=== PATIENT | female | born 1950 | race Hispanic/Latino ===

== ENCOUNTER 2021-01-22 14:43 | Emergency (ER) | payer MEDICARE ==
[~2021-01-22] VITALS: Ht 152.4 cm; Wt 90.7 kg
[2021-01-22 15:24] VITALS: BP 125/67
[2021-01-22] MEDS ORDERED: TRAMADOL HCL 50 MG TABLET PO ONE (16:00)
== END 2021-01-22 16:50 | disposition home or self-care (01) ==
LOC: EDH 14:43
DX: S60.211A Contusion of right wrist, initial encounter (principal); S50.01XA Contusion of right elbow, initial encounter; S60.221A Contusion of right hand, initial encounter; E03.9 Hypothyroidism, unspecified; E66.9 Obesity, unspecified; Z88.0 Allergy status to penicillin; Z88.1 Allergy status to other antibiotic agents; Z88.5 Allergy status to narcotic agent; X58.XXXA Exposure to other specified factors, initial encounter; Y93.89 Activity, other specified; Y92.89 Other specified places as the place of occurrence of the external cause; Y99.8 Other external cause status
CPT/HCPCS: 73070; 73090; 73120

== ENCOUNTER → 2023-06-04 | Outpatient (CLI) | payer OTHER ==
[~2023-06-04] MED LIST: BUDE10.7 IH; FOLI0.8T3 PO; FURO20TA4 PO; IOHEXOL 350 MG/ML 100ML INFUS..BTL IV ONE; IPRA3AMP24 NEB; LEVO175T9 PO; METO-408 PO; MONT-39 PO; PANT40TA54 PO; ROSU10TA72 PO; TRAZ-187 PO; ZINC50TA15 PO; [UNRECOGNIZED DRUG - CODE] PO
== END | disposition home or self-care (01) ==
LOC: RAH 07:57
PROVIDERS: ATTEND Student in an Organized Health Care Education/Training Program
DX: R07.89 Other chest pain (principal)
CPT/HCPCS: 75574; Q9967

== ENCOUNTER 2023-06-19 05:53 | Day surgery (SDC) | payer OTHER ==
[2023-06-17 08:58] VITALS: BP 145/71; PULSE 68; RESP 21
[2023-06-17 09:08] LABS: BASOPHILS # (AUTO) 0.04 K/uL (0.00-0.20); BASOPHILS % (AUTO) 0.6 % (0.0-5.0); EOSINOPHILS # (AUTO) 0.12 K/uL (0.00-0.70); EOSINOPHILS % (AUTO) 1.8 % (0.0-8.0); HEMATOCRIT 40.9 % (36-48); IMMATURE GRANULOCYTE ABSOLUTE 0.05 K/uL (0-1); LYMPHOCYTES # (AUTO) 1.5 K/uL (1.0-4.8); LYMPHOCYTES % (AUTO) 22.9 % (21.0-51.0); MEAN CORPUSCULAR HEMOGLOBIN 35.5 pg (27.0-33.0); MEAN CORPUSCULAR HGB CONC 32.8 g/dL (32.0-36.0); MEAN CORPUSCULAR VOLUME 108.5 fL (79-99); MONOCYTES # (AUTO) 0.5 K/uL (0.1-1.0); MONOCYTES % (AUTO) 7.5 % (3.0-13.0); NEUTROPHILS # (AUTO) 4.4 K/uL (1.8-7.7); NEUTROPHILS % (AUTO) 66.4 % (40.0-77.0); PLATELET COUNT (AUTO) 176 K/uL (130-400); RED BLOOD CELL COUNT(AUTO) 3.77 MIL/uL (4.00-5.50); RED CELL DISTRIBUTION WIDTH 13.2 % (11.0-15.5); WHITE BLOOD COUNT (AUTO) 6.6 K/uL (4.8-10.8)
[2023-06-17 09:10] LABS: APPEARANCE,URINE CLEAR (CLEAR); BILIRUBIN,URINE NEGATIVE (NEGATIVE); COLOR,URINE COLORLESS (YELLOW); GLUCOSE, URINE (UA) NEGATIVE (NEGATIVE); KETONES,URINE NEGATIVE (NEGATIVE); LEUKOCYTE ESTERASE ,URINE NEGATIVE Leu/uL (NEGATIVE); NITRATE,URINE NEGATIVE (NEGATIVE); OCCULT BLOOD,URINE NEGATIVE (NEGATIVE); PH,URINE 5.5 (5.0-8.0); PROTEIN,URINE NEGATIVE (NEGATIVE); UROBILINOGEN,URINE 0.2 mg/dL (0.2-1.0)
[2023-06-17 09:16] LABS: CREATININE 0.8 mg/dL (0.5-1.0); POTASSIUM 4.4 mmol/L (3.5-5.1)
[2023-06-17 09:17] LABS: ADD UA MICROSCOPIC NO
[2023-06-17 09:18] LABS: INR <= 0.93 (0.85-1.15); PROTHROMBIN TIME 10.8 SEC (9.6-11.6)
[2023-06-17 09:20] LABS: PARTIAL THROMBOPLASTIN TIME 27.3 SEC (26.3-35.5)
[2023-06-19] VITALS (8 sets, daily range): BP systolic 119–162; BP diastolic 59–100; PULSE 56–64; RESP 12–21
[~2023-06-19] VITALS: Ht 165.1 cm; Wt 107.7 kg
[~2023-06-19 05:53] MED LIST changes: -IOHEXOL 350 MG/ML 100ML INFUS..BTL IV ONE; +ROSU10TA28 PO; -ROSU10TA72 PO
[2023-06-19] MEDS: 0.9%NACL 1000ML 1,000 ML IV ONE (06:36)
[2023-06-19] MEDS ORDERED: LIDOCAINE HCL 400MG/20ML VIAL ONE (07:12)
[2023-06-19] MEDS ORDERED: FENTANYL CITRATE PF 50 MCG/1 ML 2ML VIAL ONE (07:13)
[2023-06-19] MEDS ORDERED: IOHEXOL-350 75 ML VIAL IV ONE (07:13)
[2023-06-19] MEDS ORDERED: HEPARIN 10,000 UNIT/10ML (1,000 UNIT/ML) VIAL ONE (07:13)
[2023-06-19] MEDS ORDERED: VERAPAMIL HCL 2.5 MG/ML VIAL ONE (07:13)
[2023-06-19] MEDS ORDERED: MIDAZOLAM HCL 1 MG/ML 2ML VIAL ONE (07:13)
[2023-06-19] MEDS ORDERED: NITROGLYCERIN 50MG VIAL ONE (07:39)
[2023-06-19] MEDS ORDERED: DiphenhydrAMINE HCL 50 MG/ML VIAL ONE (08:05)
[2023-06-19] MEDS ORDERED: DEXTROSE 50%-WATER 50 ML DISP.SYRIN IV PRN (09:00)
[2023-06-19] MEDS ORDERED: GLUCAGON 1MG KIT 1 MG ML IM PRN (09:00)
== END 2023-06-19 11:15 | disposition home or self-care (01) ==
LOC: DAH 05:53
PROVIDERS: ATTEND Student in an Organized Health Care Education/Training Program
DX: R93.1 Abnormal findings on diagnostic imaging of heart and coronary circulation (principal); I25.119 Atherosclerotic heart disease of native coronary artery with unspecified angina pectoris; I27.23 Pulmonary hypertension due to lung diseases and hypoxia; R09.02 Hypoxemia; I11.0 Hypertensive heart disease with heart failure; I50.20 Unspecified systolic (congestive) heart failure; E78.5 Hyperlipidemia, unspecified; G47.33 Obstructive sleep apnea (adult) (pediatric); R60.9 Edema, unspecified; J44.9 Chronic obstructive pulmonary disease, unspecified; I73.9 Peripheral vascular disease, unspecified; Z79.899 Other long term (current) drug therapy; Z79.01 Long term (current) use of anticoagulants; Z98.890 Other specified postprocedural states; Z79.890 Hormone replacement therapy; Z88.8 Allergy status to other drugs, medicaments and biological substances; Z88.6 Allergy status to analgesic agent; Z99.81 Dependence on supplemental oxygen; Z90.49 Acquired absence of other specified parts of digestive tract; Z98.51 Tubal ligation status; Z83.3 Family history of diabetes mellitus; Z82.49 Family history of ischemic heart disease and other diseases of the circulatory system; Z80.6 Family history of leukemia; Z80.0 Family history of malignant neoplasm of digestive organs; Z80.1 Family history of malignant neoplasm of trachea, bronchus and lung; Z88.0 Allergy status to penicillin
CPT/HCPCS: 80048; 83880; 85025; 85610; 85730; 81003; 36415; 71045; 93005; 93460; C1894 ×3; C1769 ×2; A4649; J1200; J3010; J3490 ×3; J7030; J1644 ×2; J2250; Q9967; A4215; A4335; A4222; A6260; A4221; A4663; A4216; A6206; A4606; A4223 ×3; A4554; 99156; 99157

== ENCOUNTER → 2024-10-26 | Outpatient (CLI) | payer OTHER ==
[~2024-10-26] MED LIST changes: -ROSU10TA28 PO; +ROSU10TA72 PO; -ZINC50TA15 PO; +ZINC50TA84 PO
--- NOTE | 2024-10-26 15:39 | HMCIMG ---
DOUBLE CONTRAST UPPER GI SERIES: CLINICAL HISTORY: Chronic GERD Finding: The study was performed using provocative maneuvers After swallowing effervescent crystal and thick barium, there is no definite intrinsic or extrinsic lesion seen in the esophagus. The stomach is normal in size, shape, and configuration. The rugal folds appear to be normal. The duodenal bulb, duodenal sweep, and upper jejunum appear to be normal. Fluoroscopy time: 0.7 minutes IMPRESSION: NORMAL DOUBLE CONTRAST UPPER GI SERIES.
== END | disposition home or self-care (01) ==
LOC: RAH 08:42
PROVIDERS: ATTEND Internal Medicine
DX: K21.9 Gastro-esophageal reflux disease without esophagitis (principal)
CPT/HCPCS: 74240

== ENCOUNTER 2024-12-20 11:21 | Inpatient (IN) | payer OTHER ==
[2024-12-20] VITALS (15 sets, daily range): BP systolic 102–156; BP diastolic 36–113; PULSE 60–69; RESP 18–35; TEMP 98.1–98.4; O2SAT 50–94
[~2024-12-20] VITALS: Ht 165.1 cm; Wt 104.5 kg
[~2024-12-20 11:21] MED LIST changes: -ROSU10TA72 PO; +ROSU10TA98 PO
[2024-12-20 11:56] LABS: IMMATURE GRANULOCYTE ABSOLUTE 0.07 K/uL (0-1); NUCLEATED RED BLOOD CELLS 0.0 % (0.0-0.19); PLATELET COUNT (AUTO) 153 K/uL (130-400); RED BLOOD CELL COUNT(AUTO) 3.87 MIL/uL (4.00-5.50); RED CELL DISTRIBUTION WIDTH 13.0 % (11.0-15.5); WHITE BLOOD COUNT (AUTO) 8.3 K/uL (4.8-10.8)
[2024-12-20 12:02] LABS: APPEARANCE,URINE CLEAR (CLEAR); GLUCOSE, URINE (UA) NEGATIVE (NEGATIVE); LEUKOCYTE ESTERASE ,URINE NEGATIVE Leu/uL (NEGATIVE); NITRATE,URINE NEGATIVE (NEGATIVE); OCCULT BLOOD,URINE +- (TRACE) (NEGATIVE)
[2024-12-20 12:07] LABS: ADD UA MICROSCOPIC YES
[2024-12-20 12:09] LABS: SQUAMOUS EPITHELIAL CELL,UR RARE /HPF (0-2)
[2024-12-20 12:13] LABS: CREATININE 0.6 mg/dL (0.5-1.0); GLOMERULAR FILTR. RATE CALC 95.0 mL/min (>90); GLUCOSE,RANDOM 110.0 mg/dL (70-105); SODIUM SERUM 143.0 mmol/L (136-145); UREA NITROGEN, BLOOD 9.0 mg/dL (7-18)
[2024-12-20 12:19] LABS: CREATINE KINASE, TOTAL 47.0 U/L (21-232)
[2024-12-20] MEDS: DOXYCYCLINE 100MG+NS 250ML 250 ML IV STA (12:23)
[2024-12-20 12:28] LABS: RAPID GROUP A STREP negative (NEGATIVE)
[2024-12-20 12:32] LABS: SARS-CoV-2, RNA, NAAT NEGATIVE SARS CoV-2 (NEGATIVE)
[2024-12-20 12:38] LABS: INFLUENZA TYPE A Negative For Type A (NEGATIVE); INFLUENZA TYPE B Negative For Type B (NEGATIVE)
--- NOTE | 2024-12-20 12:39 | ERN ---
General Chief Complaint: Shortness of Breath Stated Complaint: CHEST PAIN AND SOB Time Seen by MD: 11:23 Source: patient History of Present Illness Initial Comments Patient is a 74-year-old female coming in complaining of shortness of breath. Patient was seen by her sales branch manager Dr. Crenshaw and sent over for further evaluation. Per patient she has a history of COPD. Allergies: Coded Allergies: Penicillins (Unverified Allergy, Unknown, 01/22/21) codeine (Unverified Allergy, Unknown, 01/22/21) erythromycin base (Unverified Allergy, Unknown, 01/22/21) Home Meds Reported Medications Ipratropium/Albuterol Sulfate (Iprat-Albut 0.5-3(2.5) mg/3 ml) 0.5 Mg-3 Mg (2.5 Mg Base)/3 Ml Ampul.neb, 3 ML NEB Q6HPRN PRN for SHORTNESS OF BREATH 06/17/23 Levothyroxine Sodium (Levothyroxine Sodium) 175 Mcg Tablet, 175 MCG PO DAILY, TAB 24 Furosemide (Furosemide) 20 Mg Tablet, 20 MG PO DAILY, TAB 24 Zinc Gluconate (Zinc) 50 Mg Tablet, 50 MG PO DAILY, TAB 24 Pramipexole Di-HCl (Pramipexole ER) 1.5 Mg Tab.er.24h, 1.5 MG PO HS, TAB 24 Montelukast Sodium (Montelukast Sodium) 10 Mg Tablet, 10 MG PO DAILY, TAB 24 Metoprolol Succinate (Metoprolol Succinate) 25 Mg Tab.er.24h, 25 MG PO DAILY, T AB 06/17/23 Rosuvastatin Calcium (Rosuvastatin Calcium) 10 Mg Tablet, 10 MG PO DAILY, TAB 24 Pantoprazole Sodium (Pantoprazole Sodium) 40 Mg Tablet.dr, 40 MG PO DAILY, TAB 24 Folic Acid (Folic Acid) 0.8 Mg Tablet, 0.8 MG PO DAILY, TAB 24 Trazodone HCl (Trazodone HCl) 100 Mg Tablet, 200 MG PO HS, TAB 24 Budesonide/Glycopyr/Formoterol (Breztri Aerosphere Inhaler) 160 Mcg-9 Mcg-4.8 Mcg/Actuation Hfa.aer.ad, 2 PUFF IH BID 06/17/23 Past Medical History Past Medical History: COPD, GERD, High Cholesterol, Hypertension, Hypothyroid Medical History Other: Obese Past Surgical History: Other ROS Dictation CONSTITUTIONAL: No chills, no fever, no weakness, no diaphoresis, no malaise. HEAD/FACE: No signs of trauma. EENT: No eye pain, no blurred vision, no tearing, no double vision, no ear pain, no ear discharge, no nose pain, no nasal congestion, no throat pain, no throat swelling, no mouth pain. RESPIRATORY: No cough, no orthopnea, SOB, no stridor, no wheezing. CARDIOVASCULAR: No chest pain, no edema, no palpitations, no syncope. GASTROINTESTINAL/ABDOMINAL: No abdominal pain, no constipation, no diarrhea, no nausea, no vomiting. GENITOURINARY: No abnormal discharge, no dysuria, no frequent urination, no hematuria. No complaints of pain in the genitals. MUSCULOSKELETAL: No back pain, no gout, no joint pain, no joint swelling, no muscle pain, no muscle stiffness, no neck pain. INTEGUMENTARY: No change in color, no change in hair/nails, no dryness, no lesion, no lumps, no rash. NEUROLOGICAL/PSYCH: No anxiety, not depressed, no emotional problem, no headache, no numbness, no pre-existing deficit, no history of seizures, no tremors, no weakness. HEMATOLOGIC/LYMPHATIC: Not anemic, no history of blood clots, no apparent bleeding, no bruising, glands not swollen. All Systems Negative, Except as Noted. Physical Exam Physical Exam Dictation VITAL SIGNS: Reviewed. GENERAL APPEARANCE: Alert, oriented x3, no acute distress, obese. HEAD AND FACE: Non-traumatic. EYES: PERRL, pink conjunctivas, eyelid no trauma, anterior chamber clear. EARS: Pinnas intact and no signs of trauma or erythema. Ear canals clear and no discharge. TMs no erythema. NOSE: No discharge, no bleeding. OROPHARYNX: Mouth normal, teeth no caries, tongue pink. Pharynx clear, no erythema. Tonsils no exudates, no abscesses noted. Mucous membrane moist. NECK: Supple, non-tender, no thyromegaly, no masses, no JVD, no bruits. BREAST: Deferred. CHEST: No tenderness, no crepitus, no paradoxical movement, no retractions. LUNGS: Clear, well-ventilated, symmetric, no rales, no wheezing, no rhonchi, no stridor, good breath sounds bilaterally. HEART: Regular rate, regular rhythm, no murmur, no gallops. VASCULAR: No peripheral edema. ABDOMEN: Soft, positive bowel sounds, nondistended, no guarding, nontender, no rebound, no masses no hepatomegaly, no splenomegaly, no Miranda's sign, no hernias. RECTAL: Deferred. GENITAL: Deferred. NEUROLOGICAL: Normal speech, gross motor function intact, gross sensory function intact. MUSCULOSKELETAL: Neck nontender, full range of motion, back nontender, full range of motion. EXTREMITIES: Nontender, full range of motion. SKIN: Color pink, dry, no turgor, no rash, no lacerations, no abrasions, no contusions. LYMPHATICS: Deferred. Results Laboratory and Microbiology Lab and Micro Result Laboratory Tests Test 12/20/24 11:19 12/20/24 11:36 12/20/24 12:05 12/20/24 13:10 Urine Color LIGHT-YELLOW (YELLOW) Urine Appearance CLEAR (CLEAR) Urine pH 7.5 (5.0-8.0) Urine Specific [place] 1.011 (1.001-1.031) Urine Protein NEGATIVE mg/dL (NEGATIVE) Urine Glucose (UA) NEGATIVE mg/dL (NEGATIVE) Urine Ketones NEGATIVE mg/dL (NEGATIVE) Urine Occult Blood +- (TRACE) (NEGATIVE) H Urine Nitrate NEGATIVE (NEGATIVE) Urine Bilirubin NEGATIVE mg/dL (NEGATIVE) Urine Urobilinogen 0.2 mg/dL (0.2-1.0) Urine Leukocyte Esterase NEGATIVE Suze/uL Urine RBC 0-1 /HPF (0-1) Urine WBC 0-1 /HPF (0-1) Urine Squamous Epithelial Cells RARE /HPF (0-2) Urine Bacteria None /HPF (None Seen) White Blood Count 8.3 K/uL (4.8-10.8) Red Blood Count 3.87 MIL/uL (4.00-5.50) L Hemoglobin 13.7 g/dL (12.0-16.0) Hematocrit 43.2 % (36-48) Mean Corpuscular Volume 111.6 fL (79-99) H Mean Corpuscular Hemoglobin 35.4 pg (27.0-33.0) H Mean Corpuscular Hemoglobin Concent 31.7 g/dL (32.0-36.0) L Red Cell Distribution Width 13.0 % (11.0-15.5) Platelet Count 153 K/uL (130-400) Mean Platelet Volume 9.9 fL (7.5-10.5) Immature Granulocyte % (Auto) 0.8 % (0-1) Neutrophils (%) (Auto) 71.7 % (40.0-77.0) Lymphocytes (%) (Auto) 18.1 % (21.0-51.0) L Monocytes (%) (Auto) 7.6 % (3.0-13.0) Eosinophils (%) (Auto) 1.3 % (0.0-8.0) Basophils (%) (Auto) 0.5 % (0.0-5.0) Neutrophils # (Auto) 5.9 K/uL (1.8-7.7) Lymphocytes # (Auto) 1.5 K/uL (1.0-4.8) Monocytes # (Auto) 0.6 K/uL (0.1-1.0) Eosinophils # (Auto) 0.11 K/uL (0.00-0.70) Basophils # (Auto) 0.04 K/uL (0.00-0.20) Absolute Immature Granulocyte (auto 0.07 K/uL (0-1) Nucleated Red Blood Cells 0.0 % (0.0-0.19) Red Blood Cell Morphology See comments Sodium Level 143 mmol/L (136-145) Potassium Level 4.7 mmol/L (3.5-5.1) Chloride Level 100 mmol/L (101-111) L Carbon Dioxide Level 37 mmol/L (21-32) H Blood Urea Nitrogen 9 mg/dL (7-18) Creatinine 0.6 mg/dL (0.5-1.0) Glomerular Filtration Rate Calc 95 mL/min (>90) Random Glucose 110 mg/dL (70-105) H Total Calcium 8.7 mg/dL (8.5-10.1) Magnesium Level 2.10 mg/dL (1.80-2.40) Total Creatine Kinase 47 U/L (21-232) Troponin I High Sensitivity 8 ng/L (4-50) Influenza Type A Antigen Negative For Type A Influenza Type B Antigen Negative For Type B SARS-CoV-2, RNA, NAAT NEGATIVE SARS CoV-2 Group A Streptococcus Rapid negative (NEGATIVE) Blood Gas Specimen Type Arterial Arterial Blood pH 7.312 (7.350-7.450) Arterial Blood Partial Pressure CO2 69 mmHg (32-45) *H Arterial Blood Partial Pressure O2 52.7 mmHg (83.0-108.0) L Arterial Blood HCO3 34.2 mmol/L (21.0-28.0) H Arterial Blood Oxygen Saturation 85.0 % (94.0-98.0) L Arterial Blood Base Excess 5.5 mmol/L (-2.0-3.0) H Hemoglobin (Blood Gas) 14.2 g/dL (12.0-16.0) Sodium (Blood Gas) 138 MMOL/L (136-145) Bedside Potassium (Blood Gas) 4.3 MMOL/L (3.4-4.5) Bedside Chloride (Blood Gas) 98 MMOL/L (98-107) Bedside Glucose (Blood Gas) 107 MG/DL (65-95) H Bedside Ionized Calcium (Blood Gas) 1.17 MMOL/L (1.15-1.33) Bedside Lactic Acid (Blood Gas) 0.99 MMOL/L (0.36-0.75) H Blood Gas Temperature 37.0 CELSIUS (35.5-37.0) Blood Gas Flow-by 4.00 L/min (0.00-15.00) Blood Gas Vent Mode NC (ROOM AIR) FiO2 36.0 % Blood Gas Specimen Comment RR, Labs Reviewed?: Yes EKG/XRAY/US/CT/MRI EKG Comment 12/20/2024 time 11:32 a.m. Ventricular rate 58 Sinus rhythm [place] [address] wave elevation or depression X-RAY Comment IMAGING REPORT Signed PATIENT: YEE OTTO MR#: [id number] : 1950 SEX: F AGE: 74 LOCATION: [facility] ORDER [id number] STATUS: REG ER REPORT#: [id number] SERVICE 1134 REASON: SOB ORDERING PHYSICIAN: CYN GARLAND MD PROCEDURE: CXR1VW - CHEST 1VW EXAM: CR Chest, 1 View. CLINICAL HISTORY: SOB COMPARISON: Radiograph dated June 17, 2023 FINDINGS: There is bilateral perihilar and bibasilar airspace disease that may reflect pulmonary edema. No pleural effusion or pneumothorax. Heart size is stable. Pulmonary vascular congestion. IMPRESSION: 1. Bilateral perihilar and bibasilar airspace disease, possibly representing pulmonary edema with pulmonary vascular congestion /[place] DICTATED BY: MARA GARZA Jr., MD DATE: 12/20/241401 ELECTRONICALLY SIGNED BY: MARA GARZA Jr., MD DATE: 12/20/241401 [facility] MDM: Differential diagnosis: Respiratory distress, shortness of breath, history of COPD, Rationale: Tests considered and ordered secondary to shared decision making include: labs, ECG and radiology Previous outside records reviewed: Old ER visits. Risk of complication and/or morbidity or mortality of patient management: None Medications-Per medication reconciliation Need for hospitalization: Patient does meet criteria for hospitalization. Need for emergency major/minor surgery: No There are no social concerns with this patient. Prescription drug management Prescriptions will include symptomatic care Patient's prior external medical records from other ER visits were reviewed by me as indicated. Prior testing and results from previous visits were reviewed. Prior tests were taken into account with medical decision making and resource utilization, independent historian/historians were used to obtain complete medic al history. I independently interpreted the test that were performed, results were reviewed by me and considered findings on radiology if ordered. Medical management and examination interpretation discussions were had by me with other qualified healthcare professionals as indicated for the patient's care. She will be admitted under the care of hospitalist group for ongoing management ED Course Orders Procedure Category Date Status Time Cbc With Differential LAB 12/20/24 Complete 11:34 Chest 1vw RAD 12/20/24 Resulted 11:34 12 Lead Ekg Tracing- EKG 12/20/24 Complete Technical 11:34 Magnesium LAB 12/20/24 Complete 11:34 Creatine Kinase, Total LAB 12/20/24 Complete 11:34 Troponin I High LAB 12/20/24 Complete Sensitivity 11:34 Urinalysis Profile LAB 12/20/24 Complete 11:34 Basic Metabolic Panel LAB 12/20/24 Complete 11:34 Covid Rna Naat LAB 12/20/24 Complete 11:34 Influenza Type A & B, LAB 12/20/24 Complete Rapid 11:34 Rapid (Group A Strep) LAB 12/20/24 Complete 11:34 Doxycycline 100mg+Ns PHA 12/20/24 In Process 250ml (Doxycycline 12:14 Levofloxacin 500 PHA 12/20/24 Complete Mg/D5w 100 Ml 12:30 Ipratropium/Albuterol PHA 12/20/24 Complete Neb (Duoneb) 13:00 Methylprednisolone PHA 12/20/24 Complete Succ 125mg (Solu-Medr 13:00 Arterial Blood Gas + RT 12/20/24 Transmitted 12:44 Arterial Blood Gas LAB 12/20/24 Complete Arterial + 13:10 Current Medications Medications (Trade) Dose Ordered Sig/Jase Route PRN Reason Start Time Stop Time Status Last Admin Dose Admin Albuterol (DUOneb) 2 udvial ONCE ONCE IH 12/20/24 13:00 12/20/24 13:01 DC 12/20/24 12:57 Doxycycline Hyclate 250 ml @ 125 mls/hr Q12H STAT IV 12/20/24 12:14 12/20/24 14:13 12/20/24 12:23 Levofloxacin/ Dextrose 100 ml @ 100 mls/hr Q24H IV 12/20/24 12:30 12/20/24 12:38 DC Methylprednisolone Sodium Succinate (Solu-medROL 125MG) 125 mg ONCE ONCE IVP 12/20/24 13:00 12/20/24 13:01 DC 12/20/24 12:44 Vital Signs Date Time Temp Pulse Resp B/P (MAP) Pulse Ox O2 Delivery O2 Flow Rate FiO2 12/20/24 13:08 61 24 12/20/24 12:15 98.2 62 22 151/73 86 Nasal Cannula* 4 36 12/20/24 11:59 98.2 64 20 151/73 88 Nasal Cannula* 4 36 12/20/24 11:24 98.4 66 20 128/58 78 Nasal Cannula 2.0 Critical Care Note Comments Critical Care Procedure Note Authorized and Performed by: me Total critical care time: Approximately 36 minutes Due to a high probability of clinically significant, life threatening deterioration, the patient required my highest level of preparedness to intervene emergently and I personally spent this critical care time directly and personally managing the patient. This critical care time included obtaining a history; examining the patient; pulse oximetry; ordering and review of studies; arranging urgent treatment with development of a management plan; evaluation of patient's response to treatment; frequent reassessment; and, discussions with other providers. This critical care time was performed to assess and manage the high probability of imminent, life-threatening deterioration that could result in multi-organ failure. It was exclusive of separately billable procedures and treating other patients and teaching time. Please see MDM section and the rest of the note for further information on patient assessment and treatment. DX & DISP Disposition: Inpatient Decision to Admit Time: 13:24 Departure Impression: Primary Impression: COPD exacerbation Additional Impression: Respiratory distress Condition: Stable Referrals: KASSIDY SEAMAN MD (PCP) CYN GARLAND MD Dec 20, 2024 12:39
--- NOTE | 2024-12-20 12:44 | EKG ---
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
--- NOTE | 2024-12-20 13:00 | NUR ---
pt on arrival o2 sts in the 70's with slight exertion 70's to as low as 68 with 4 l nc notified
--- NOTE | 2024-12-20 13:01 | NUR ---
pt on arrival advised personal choice voiced "DNI" friend at bedside discouraged request
--- NOTE | 2024-12-20 13:02 | NUR ---
while in the bed o2 sats between 86-90% 4L NC
--- NOTE | 2024-12-20 13:03 | HMCIMG ---
EXAM: CR Chest, 1 View. CLINICAL HISTORY: SOB COMPARISON: Radiograph dated June 17, 2023 FINDINGS: There is bilateral perihilar and bibasilar airspace disease that may reflect pulmonary edema. No pleural effusion or pneumothorax. Heart size is stable. Pulmonary vascular congestion. IMPRESSION: 1. Bilateral perihilar and bibasilar airspace disease, possibly representing pulmonary edema with pulmonary vascular congestion /[place]
[2024-12-20 13:12] LABS: ABG BASE EXCESS 5.5 mmol/L (-2.0-3.0); ABG HCO3 34.2 mmol/L (21.0-28.0); ABG OXYGEN SATURATION 85.0 % (94.0-98.0); ABG PCO2 69 mmHg (32-45); ABG PH 7.312 (7.350-7.450); CARBON MONOXIDE 5.9 % (0.5-1.5); PO2, ARTERIAL BG 52.7 mmHg (83.0-108.0); TEMPERATURE, CELSIUS BG 37.0 CELSIUS (35.5-37.0); VENT MODE, BG NC (ROOM AIR)
[2024-12-20] MEDS ORDERED: MAGNESIUM 2GM PREMIX 50ML 50 ML IV SCH (14:00)
[2024-12-20] MEDS ORDERED: PHARMACY COMMUNICATION MISC SCH (14:00)
[2024-12-20] MEDS ORDERED: guaiFENesin-DM 200/20MG 10ML PO PRN (14:00)
[2024-12-20] MEDS ORDERED: MEROPENEM 1GM 1 GM VIAL IVPB SCH (14:00)
[2024-12-20 14:02] LABS: ASPARTATE AMINOTRANSFERASE 17.0 U/L (10-37); TOTAL PROTEIN, SERUM 6.9 g/dL (6.0-8.3)
[2024-12-20] MEDS: SODIUM CHLORIDE 3% FOR INHALATION 4 ML/AMP VIAL.NEB IH ONE (14:08)
--- NOTE | 2024-12-20 14:08 | NUR ---
PT ON BIPAP 16 OVER 6 RATE 21 40% 02
--- NOTE | 2024-12-20 14:11 | NUR ---
DR FLEMING TO COMPLETE CARDIOLOGY AND INTENSIVE CARE CONSULT
[2024-12-20] MEDS: MEROPENEM 1GM 1 GM VIAL IVPB SCH (14:37)
--- NOTE | 2024-12-20 15:12 | HMCIMG ---
EXAM: US for Deep Venous Thrombosis, bilateral Lower Extremity. CLINICAL HISTORY: Leg Pain and Swelling TECHNIQUE: Real-time ultrasound scan of the veins of the bilateral lower extremity with color Doppler flow, spectral waveform analysis and compression. COMPARISON: None provided. FINDINGS: DEEP VEINS: The common femoral, superficial femoral, and popliteal veins are echolucent and compressible. There is normal color Doppler flow throughout. The visualized calf veins appear patent. SOFT TISSUES: No popliteal fossa cyst or other abnormalities. IMPRESSION: 1. No evidence of deep venous thrombosis in bilateral lower extremities. /[place]
[2024-12-20 15:23] LABS: ABG BASE EXCESS 4.9 mmol/L (-2.0-3.0); ABG HCO3 33.3 mmol/L (21.0-28.0); ABG OXYGEN SATURATION 93.7 % (94.0-98.0); ABG PCO2 68 mmHg (32-45); ABG PH 7.310 (7.350-7.450); CARBON MONOXIDE 5.2 % (0.5-1.5); PO2, ARTERIAL BG 72.6 mmHg (83.0-108.0); TEMPERATURE, CELSIUS BG 37.0 CELSIUS (35.5-37.0); VENT MODE, BG BIPAP 16-6 (ROOM AIR)
[2024-12-20 15:30] LABS: INR 0.96 (0.85-1.15)
--- NOTE | 2024-12-20 15:34 | NUR ---
Dcp; HOME Sw met with pt and her friend Adenike Schmidt [phone]. 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 Pt sates she is able to care for self, maintain home cook, laundry and drive. Pt has no in home care services and uses [facility] for rx services. PCP is Louisa Yee and uses [facility] for rx services. Pt denies dc needs, states she will return home. SONS: Toney Rebolledo [phone] and Tigre Rebolledo [phone] Addendum: 12/20/24 at 1540 by COMFORT ALVA Amended: Links added.
--- NOTE | 2024-12-20 15:34 | CONS ---
[facility] CONSULTATION NOTE Date Patient Seen: Dec 20, 2024 Time of Visit: 15:34 Supervising Physician: BETHANY MAURICE MD Reason for Consultation: RESP FAILURE & CCM Primary Care Physician: KASSIDY SEAMAN Outpatient Specialists: [ ] Inpatient Consults: CRISTINA REYNOSO, PROBLEM LIST: Acute on chronic hypoxemic and hypercapnic respiratory failure POA Acute respiratory acidosis, POA COPD exacerbation, POA Suspected aspiration Pneumonitis POA Mild hypoalbuminemia POA Hyperglycemia POA Elevated D-dimer negative for DVT, Well's score for PE 0 point BNP (WNL) -likely not acute CHF Abdominal distention r/o ascites Essential hypertension Obesity BMI of 39.1 Current smoker half pack a day Current ETOH 3 glasses of wine a day, @ risk for alcohol withdrawals HPI: This is an 74-year-old obese female with a past medical history of COPD who currently still smokes half a pack a day, GERD, hypercholesteremia, hypertension, and hypothyroidism who presented to the ED for increasing shortness for breath. Patient has a follow up with her practice management consultant Dr. Crenshaw and she was sent to the ED for further evaluation of her shortness for breath. In the ED CBC remarkable for MCV that is elevated at 111.6 MCH of 3 over 35.4, MCHC of 31.7 ESR of 37. Chemistry shows chloride of 100 carbon dioxide 37 BUN of nine creatinine 0.6 glucose 110 mg/dL total CK of 47, protocol less than 0.05 albumin of 3.4 and CRP of 10.90. ABG shows a pH of 7.31 pCO2 of 69 PO2 of 52.7 and bicarb 34.2 consistent with acute on chronic hypercapnic and hypoxemic respiratory failure. Chest x-ray shows bilateral perihilar and bibasilar airspace disease possibly representing pulmonary edema with pulmonary vascular congestion. Venous Doppler shows no evidence of DVT in bilateral lower extremities. 2D echo was done pending results. Chest x-ray with bilateral perihilar and bibasilar airspace disease and may reflect pulmonary edema. No pleural effusion or pneumothorax heart size is stable pulmonary vascular congestion is mild. Likely not heart failure due to BNP within normal limits. This may be exacerbation of her COPD with suspected advanced COPD with a emphysema. On assessment patient is awake alert and oriented x3. Tolerating BiPAP on AVAPS mode now. Patient has told me she does not want to be intubated if the need should come. Currently in no respiratory distress on the NIV. Respiratory rate of 22, saturating 96% FiO2 of 40%. She is pulling good volumes with the AVAPS mode almost 600. She is hemodynamically stable. Patient reports she started with shortness of the breath two days ago. Followed up at practice management consultant office and nurse encouraged to come into the ED due to low oxygenation. As per patient she also drinks three glasses of wine a day.ciwa protocol initiated. PAST MEDICAL HX: see above PAST SURGICAL HX: noncontributory SOCIAL HISTORY: No tobacco, ETOH, or illicit drug use Coded Allergies: Penicillins (Unverified Allergy, Unknown, 01/22/21) codeine (Unverified Allergy, Unknown, 01/22/21) erythromycin base (Unverified Allergy, Unknown, 01/22/21) REVIEW OF SYSTEMS: 12 point ROS reviewed with patient. Pertinent positives mentioned above. Otherwise negative. PHYSICAL EXAM: GENERAL: alert, weak, awake oriented x 3 HEENT: EOMI, Sclera non icteric, moist mucosa NECK: Supple, no JVD, trachea midline LUNGS: Diminished breath sounds bilaterally. No wheezes HEART: Regular rate and rhythm. Normal S1 and S2, without murmurs ABD: Abdomen distended firm, nontender. Bowel sounds present EXT: No clubbing cyanosis. trace edema to BLE NEURO: Alert and oriented to person, follows commands Vital Signs (last 8hr) Date Time Temp Pulse Resp B/P (MAP) Pulse Ox O2 Delivery O2 Flow Rate FiO2 12/20/24 15:14 98.2 66 21 174/78 96 Bi-PAP+ 40 12/20/24 14:09 98.2 65 21 151/73 96 Bi-PAP+ 40 12/20/24 13:25 64 29 40 12/20/24 13:08 61 24 12/20/24 12:15 98.2 62 22 151/73 86 Nasal Cannula* 4 36 12/20/24 11:59 98.2 64 20 151/73 88 Nasal Cannula* 4 36 12/20/24 11:24 98.4 66 20 128/58 78 Nasal Cannula 2.0 LABS: Hematology Labs: Test 12/20/24 11:46 12/20/24 11:36 Range/Units Erythrocyte Sedimentation Rate 37 H 0-30 MM/HR White Blood Count 8.3 4.8-10.8 K/uL Red Blood Count 3.87 L 4.00-5.50 MIL/uL Hemoglobin 13.7 12.0-16.0 g/dL Hematocrit 43.2 36-48 % Mean Corpuscular Volume 111.6 H 79-99 fL Mean Corpuscular Hemoglobin 35.4 H 27.0-33.0 pg Mean Corpuscular Hemoglobin Concent 31.7 L 32.0-36.0 g/dL Red Cell Distribution Width 13.0 11.0-15.5 % Platelet Count 153 130-400 K/uL Mean Platelet Volume 9.9 7.5-10.5 fL Immature Granulocyte % (Auto) 0.8 0-1 % Neutrophils (%) (Auto) 71.7 40.0-77.0 % Lymphocytes (%) (Auto) 18.1 L 21.0-51.0 % Monocytes (%) (Auto) 7.6 3.0-13.0 % Eosinophils (%) (Auto) 1.3 0.0-8.0 % Basophils (%) (Auto) 0.5 0.0-5.0 % Neutrophils # (Auto) 5.9 1.8-7.7 K/uL Lymphocytes # (Auto) 1.5 1.0-4.8 K/uL Monocytes # (Auto) 0.6 0.1-1.0 K/uL Eosinophils # (Auto) 0.11 0.00-0.70 K/uL Basophils # (Auto) 0.04 0.00-0.20 K/uL Absolute Immature Granulocyte (auto 0.07 0-1 K/uL Nucleated Red Blood Cells 0.0 0.0-0.19 % Red Blood Cell Morphology See comments Chemistry Labs: Test 12/20/24 14:23 12/20/24 11:46 12/20/24 11:36 Range/Units Magnesium Level 2.20 1.80-2.40 mg/dL B-Type Natriuretic Peptide 62 0-100 pg/mL Sodium Level 143 136-145 mmol/L Potassium Level 4.7 3.5-5.1 mmol/L Chloride Level 100 L 101-111 mmol/L Carbon Dioxide Level 37 H 21-32 mmol/L Blood Urea Nitrogen 9 7-18 mg/dL Creatinine 0.6 0.5-1.0 mg/dL Glomerular Filtration Rate Calc 95 >90 mL/min Random Glucose 110 H 70-105 mg/dL Total Calcium 8.7 8.5-10.1 mg/dL Total Bilirubin 0.6 0.2-1.0 mg/dL Direct Bilirubin 0.2 0.0-0.3 mg/dL Aspartate Amino Transf (AST/SGOT) 17 10-37 U/L Alanine Aminotransferase (ALT/SGPT) 20 12-78 U/L Alkaline Phosphatase 126 50-136 U/L Total Creatine Kinase 47 21-232 U/L Troponin I High Sensitivity 8 4-50 ng/L C-Reactive Protein, Quantitative 10.90 H 0.5-3.0 mg/L Total Protein 6.9 6.0-8.3 g/dL Albumin 3.4 L 3.5-5.0 g/dL Procalcitonin < 0.05 L 0.05-0.5 ng/mL Coagulation Labs: Test 12/20/24 14:23 Range/Units Prothrombin Time 10.2 9.6-11.6 SEC Prothromb Time International Ratio 0.96 0.85-1.15 Activated Partial Thromboplast Time 26.8 26.3-35.5 SEC D-Dimer Quantitative (PE/DVT) 882 *H 0-500 ng/mL DIAGNOSTICS / RADIOLOGY RESULTS: [place] [address] [id number] IMAGING REPORT Signed PATIENT: YEE OTTO MR#: [id number] : 1950 SEX: F AGE: 74 LOCATION: [facility] ORDER 1351 STATUS: ADM IN REPORT#: [id number] SERVICE 1349 REASON: r/o DVT of the lower extremities ORDERING PHYSICIAN: MALDONADO FLEMING MD PROCEDURE: VENOUS FAY - US VENOUS DOPPLER BILATERAL EXAM: US for Deep Venous Thrombosis, bilateral Lower Extremity. CLINICAL HISTORY: Leg Pain and Swelling TECHNIQUE: Real-time ultrasound scan of the veins of the bilateral lower extremity with color Doppler flow, spectral waveform analysis and compression. COMPARISON: None provided. FINDINGS: DEEP VEINS: The common femoral, superficial femoral, and popliteal veins are echolucent and compressible. There is normal color Doppler flow throughout. The visualized calf veins appear patent. SOFT TISSUES: No popliteal fossa cyst or other abnormalities. IMPRESSION: 1. No evidence of deep venous thrombosis in bilateral lower extremities. /[place] DICTATED BY: RITO DOUGLAS MD DATE: 12/20/241610 ELECTRONICALLY SIGNED BY: RITO DOUGLAS MD DATE: 12/20/24 1611 ] [place] [address] [place] [id number] IMAGING REPORT Signed PATIENT: YEE OTTO MR#: [id number] : 1950 SEX: F AGE: 74 LOCATION: [facility] ORDER 35 STATUS: REG REPORT#: [id number] SERVICE 33 REASON: SOB ORDERING PHYSICIAN: CYN GARLAND MD PROCEDURE: CXR1VW - CHEST 1VW EXAM: CR Chest, 1 View. CLINICAL HISTORY: SOB COMPARISON: Radiograph dated June 17, 2023 FINDINGS: There is bilateral perihilar and bibasilar airspace disease that may reflect pulmonary edema. No pleural effusion or pneumothorax. Heart size is stable. Pulmonary vascular congestion. IMPRESSION: 1. Bilateral perihilar and bibasilar airspace disease, possibly representing pulmonary edema with pulmonary vascular congestion /[place] DICTATED BY: MARA GARZA Jr., MD DATE: 12/20/241401 ELECTRONICALLY SIGNED BY: MRAA GARZA Jr., MD DATE: 12/20/241401 PLAN Continue Solu-Medrol 40 mg q.6 hours IV push and wean as tolerated Keep NPO NS at 50 mL/hour due to NPO status DC once patient is eating. Consider Lasix if signs of fluid overload. For now hold Lasix due to BNP within normal limits. Empiric antibiotics per primary team Given exposure of smoking for many years, patient has a developed COPD with exacerbation. Patient to follow up as outpatient at pulmonary clinic in two weeks for PFTs, we will continue with nebulizer treatments with atrovent, Pulmicort, steroids. Singulair 10 mg daily Follow respiratory cultures Maintain O2 sats above 88% Gi PPX with protonix due to steroids smoking cessation Continue patch PRN Influenza a and B negative, COVID-19 negative, Chest x-ray in the morning AVAPS T-max 25, P min 12, tidal volume 500, respiratory rate of 20, FiO2 of 40% NEURO: Minimize central acting medications as possible. Fall Precautions. Well lighted room through the day and minimize interruptions through the night to prevent acute delirium. CIWA protocol with diazepam PULMONARY: Supplemental 02 as needed Titrate Fio2 to keep Spo2 > or = 90% DuoNebs and CPT as needed IS hourly while awake for pulmonary hygiene Out of bed to chair as tolerated Follow ABG Chest x-ray in a.m. CARDIOVASCULAR: Follow hemodynamics. Titrate vasopressor to keep MAP >65 or systolic blood pressure >95mmHg Drips: None LINES: PIV GI & NUTRITION: Continue nutritional support Aspirations precautions Prokinetic agents and laxatives as needed KIDNEYS & ELECTROLYTES: Strict monitoring of intake and output Daily weights Avoid nephrotoxic agents Monitor electrolytes and replace as needed Goal urine output of 30mL/hr or 0.5mL/kg/hr Urine output: [ ] Fluid Balance: [ ] ENDOCRINE: Maintain blood glucose between 100-180 at all times. Insulin sliding scale for blood glucose management INFECTIOUS DISEASE: Trend temperature. [place]-culture if febrile. Micro: [ ] Respiratory culture Antibiotics: [ ] Per primary team on meropenem and doxycycline HEMATOLOGY & COAGULATION: Monitor H&H. Keep Hgb > 7 Transfuse 1 unit of PRBC for Hgb < 7 Transfuse 1 pack of platelets of platelets < 20, 000 Watch for any signs and symptoms of bleeding SKIN: Pressure ulcer prevention per facility protocol Rehab: PT/OT Prophylaxis: GI: [Protonix ] DVT: [ Lovenox] Code Status: Full Resuscitation Disposition: [ICU ] Other: Critical care time This patient required multiple bedside visits to manage the patient, review blood gases, coordinate with respiratory, nurses, talk to the family members and discuss advanced directives. I personally spent [60] minutes of critical care time [facility] This includes patient management, time at bedside, time reviewing tests, labs, appropriate images and studies, documentation, and patient care coordination. This time excludes separately billable procedures. ATTESTATION BY PHYSICIAN The patient has been seen and evaluated, the case has been discussed with the DISABILITY SERVICES COORDINATOR, I agree with the clinical findings and plan of care. KAY HDEZ MD [facility] Dec 20, 2024 15:34
--- NOTE | 2024-12-20 15:58 | HMCSR ---
APPROVED REPORT EXAM: Two-dimensional and M-mode echocardiogram with Doppler and color Doppler. INDICATION ICD: Assess for heart failure exacebration and pumonary hypertension 2D Dimensions RVDd4.3 cmLVEF(%)67.2 (>50%)LVED Vol(simp.)133.2 mL IVSd1.2 (0.7-1.1cm)FS(%)38 %LVES Vol(simp.)50.4 mL LVDd5.5 (3.8-5.6cm)LA (2D)4.0 (1.6-4.0cm)LVEF(%, simp.)62 % PWd0.9 (0.7-1.1cm)Ao Root(2D)3.0 (2.0-3.7cm)LA ESV INDEX (BP)47.61 mL/m2 LVDs3.4 (2.5-4.0cm)LVOT diam2.2 (1.8-2.4cm) IVC diam3.4 cm Aortic Valve AoV Vmax1.5 m/[place] Peak GR9.4 mmHgLVOT Vmax1.5 m/s AoV VTI0.4 mAo Mean GR4.8 mmHgLVOT VTI0.34 m ELLY (VMAX)3.78 cm2AVA (VTI) 3.3 cm2 Mitral Valve MV E Tvak574.4 cm/sDECEL Cdrm172 ms MV A Rtlp810.1 cm/sP 1/2 T80 ms E/A ratio1.2MVA (PHT)2.8 cm2 TDI E/E' [place]uu32.6E/E' Sfewyak40.4 Medial E' Peak V8.18 cm/sLateral E' Peak V8.86 cm/s Pulmonary Valve PV Vmax1.6 m/sPV VTI0.36 mPV Mean GR4.4 mmHg PV Peak GR10.7 mmHg Tricuspid Valve RAP (EST) 15 dpSvTMGK52.0 mmHg Left Ventricle The left ventricle is normal size. There is mild left ventricular wall thickness. LVEF is 60-65%. Sta ge II, diastolic dysfunction. Right Ventricle The right ventricle is mildly dilated. The right ventricular systolic function is normal. Atria The left atrium is moderately dilated. The right atrium is moderately dilated. Aortic Valve The aortic valve is normal in structure. No aortic regurgitation is present. There is no aortic valvu lar stenosis. Mitral Valve The mitral valve is normal in structure. There is trace of mitral valve regurgitation noted. There is no mitral valve stenosis. Tricuspid Valve The tricuspid valve is normal in structure. There is trace of tricuspid valve regurgitation noted. Pulmonic Valve The pulmonary valve is normal in structure. There is no pulmonic valvular regurgitation. Great Vessels The aortic root is normal in size. IVC is dilated and collapses <50% with inspiration. Pericardium There is no pericardial effusion. Other Information Quality : Adequate Conclusion The left ventricle is normal size. LVEF is 60-65%. Stage II, diastolic dysfunction. The right ventricle is mildly dilated. The right ventricular systolic function is normal. The left atrium is moderately dilated. The right atrium is moderately dilated. No valvular pathology. There is no pericardial effusion.
[2024-12-20] MEDS ORDERED: PROMETHAZINE HCL 25 MG TABLET PO PRN (16:00)
[2024-12-20] MEDS ORDERED: PHARMACY COMMUNICATION MISC PRN (16:00)
--- NOTE | 2024-12-20 16:09 | HP ---
[facility] HISTORY AND PHYSICAL Date of Service: Dec 20, 2024 Time of Service: 15:58 HISTORY OF PRESENT ILLNESS: Date of service: 12/22/2024, patient was seen in ER room 13, patient is critically ill This is a 74-year-old female with underlying history of COPD, suspected pulmonary fibrosis, chronic hypercapnic respiratory failure, obesity, chronic hypoxemic respiratory failure on supplemental O2 therapy as outpatient, hypertension, hyperlipidemia, hypothyroidism who presented to the ER for further evaluation of progressive shortness of breath. Patient states that she has been ill for the past one week and has been having cough, wheezing and congestion. She is short of breath with minimal activities. She has been having subjective chills at home. She has also been having chest pain worsened with coughing. She denies any recent falls or syncopal episodes. She is followed by Dr. Diaz with pulmonology as outpatient. She is followed by Dr. Crenshaw with Cardiology as outpatient. She denies any previous history of CT. denies previous history of congestive heart failure. Patient has a prior long-time smoking history. She recently was given a course of outpatient antibiotics with no significant improvement of symptoms. On presentation to the hospital, patient was noted to be afebrile with T-max of 98.4 F, heart rate of 66, blood pressure 128/58. Patient was noted to be significantly hypoxemic with O2 saturations of 78 % on 2 L of O2 supplementation by nasal cannula. Labs on presentation showed WBC count of 8300, hemoglobin of 13.7, platelet count of [id number]. BMP showed sodium of 143, potassium 4.7, BUN of nine, creatinine 0.6, magnesium of 2.10. Chest x-ray showed bilateral perihilar and bibasilar infiltrates. Patient will be admitted for further management of severe COPD exacerbation with acute on chronic hypercapnic and hypoxemic respiratory failure. Patient will be initiated on noninvasive ventilation with BiPAP, she will receive broad-spectrum antibiotics. Consultation with critical Care will be requested. Patient with also signs of atypical chest pain, D-dimer we will be obtained and if significantly elevated, we will consider CT PE protocol to rule out PE, we will have Cardiology follow this patient. Patient states that she wants to have more time and think about her code status with regards to intubation and resuscitation status tonight, she will let us know tomorrow about her code status. I have told her in case of emergency, she will need to urgently decide, she still told me she wants to think with regards to code status. She is able to tell me her name and and answer questions appropriately and able to make decisions. REVIEW OF SYSTEMS CONSTITUTIONAL: Denies fevers, chills, or night sweats. No unintentional weight loss reported. NEUROLOGICAL: Denies headache, amaurosis fugax, motor weakness, sensory deficit, vertigo/spinning sensation, gait abnormalities, or tremors. ENT: No hearing loss, otalgia, otorrhea, rhinitis, rhinorrhea, hoarseness, or sore throat. CARDIOVASCULAR: Denies any exertional angina, dyspnea on exertion, orthopnea, paroxysmal nocturnal dyspnea, palpitations, life-threatening arrhythmias, claudication. PULMONARY: Some breath, cough, congestion, wheezing ongoing for about one week, reports having history of COPD, reports being on O2 therapy as outpatient SLEEP: Denies morning headaches, daytime somnolence or napping. Denies difficulty falling asleep, staying asleep, waking from sleep. Denies knowledge of snoring. GASTROINTESTINAL: Denies any type of dysphagia to either liquids or solids. Denies nausea, vomiting, pyrosis, early satiety, abdominal pain, diarrhea, constipation, or changes in stool consistency or caliber. Denies coffee-ground emesis, hematemesis, hematochezia, or melanotic stools. GENITOURINARY: Denies frequency, urgency, nocturia, hematuria or incontinence (Storage/Irritative symptoms.) Low urinary stream, straining to void, urinary intermittency or hesitancy, splitting of the voiding stream, terminal dribbling. ENDOCRINOLOGIC: Denies polyuria, polydipsia, polyphagia or heat/cold intolerances. HEMATOLOGIC: Denies thrombophilia/previous clots, or coagulopathy/bleeding disorders. ONCOLOGIC: Denies personal history of malignancy. DERMATOLOGIC: Denies rashes or pruritus. PSYCHIATRIC: Denies any suicidal or homicidal ideation. Denies hallucinations. PAST MEDICAL HISTORY: Hypertension, hyperlipidemia, hypothyroidism, COPD, suspected pulmonary fibrosis, chronic hypercapnic respiratory failure, chronic hypoxemic respiratory failure on 2 L of nasal cannula supplementation PAST SURGICAL HISTORY: Reports remote history of cholecystectomy PAST SOCIAL HISTORY: Prior smoking history, quit smoking five years ago, she has a 50 year smoking history FAMILY HISTORY: Denies pertinent family history Allergies: Penicillin, codeine, erythromycin base Home medications: Patient we will Be bringing list of home medications to habit or blood Coded Allergies: Penicillins (Unverified Allergy, Unknown, 01/22/21) codeine (Unverified Allergy, Unknown, 01/22/21) erythromycin base (Unverified Allergy, Unknown, 01/22/21) PHYSICAL EXAM GENERAL APPEARANCE: The patient is awake, alert, and oriented, in no acute cardiopulmonary distress. NEUROLOGICAL: Cranial nerves II-XII grossly intact. Motor is 5/5 in bilateral upper and lower extremities proximal to distal. No sensory deficits. HEENT: Face is symmetric. Pupils are equal and reactive. Extraocular movements are intact. NECK: Supple. No JVD. No thyromegaly. No submental, submandibular, pre- /postauricular, occipital or supraclavicular lymphadenopathy. CHEST: Normal chest expansion. No Telemetry. LUNGS: Crackles noted of bilateral lung bases with expiratory wheezing CARDIOVASCULAR: Regular. S1 and S2 normal. No appreciable rubs, murmurs or gallops. ABDOMEN: Soft, nontender, and nondistended. There is no rebound, voluntary guarding, or rigidity. : Deferred. No Draper. EXTREMITIES: Trace edema noted of bilateral lower extremity SKIN: No skin breakdown. Vital Sign (Last 24 Hours) 12/20/24 12/20/24 12/20/24 12:15 15:14 15:51 Temp 98.2 Pulse 60 Resp 33 B/P (MAP) 174/78 Pulse Ox 96 O2 Delivery Bi-PAP+ O2 Flow Rate 4 FiO2 40 LABS: Laboratory: Test 12/20/24 15:21 12/20/24 14:23 12/20/24 13:10 12/20/24 12:05 Range/Units Blood Gas Specimen Type Arterial Arterial Blood pH 7.310 L 7.350-7.450 Arterial Blood Partial Pressure CO2 68 *H 32-45 mmHg Arterial Blood Partial Pressure O2 72.6 L 83.0-108.0 mmHg Arterial Blood HCO3 33.3 H 21.0-28.0 mmol/L Arterial Blood Oxygen Saturation 93.7 L 94.0-98.0 % Arterial Blood Base Excess 4.9 H -2.0-3.0 mmol/L Hemoglobin (Blood Gas) 13.8 12.0-16.0 g/dL Sodium (Blood Gas) 137 136-145 MMOL/L Bedside Potassium (Blood Gas) 4.3 3.4-4.5 MMOL/L Bedside Chloride (Blood Gas) 99 98-107 MMOL/L Bedside Glucose (Blood Gas) 130 H 65-95 MG/DL Bedside Ionized Calcium (Blood Gas) 1.14 L 1.15-1.33 MMOL/L Bedside Lactic Acid (Blood Gas) 0.91 H 0.36-0.75 MMOL/L Blood Gas Temperature 37.0 35.5-37.0 CELSIUS Blood Gas Respiration Rate 21.0 min. Blood Gas Vent Mode BIPAP 16-6 ROOM AIR FiO2 40.0 % Blood Gas Specimen Comment RR, Prothrombin Time 10.2 9.6-11.6 SEC Prothromb Time International Ratio 0.96 0.85-1.15 Activated Partial Thromboplast Time 26.8 26.3-35.5 SEC D-Dimer Quantitative (PE/DVT) 882 *H 0-500 ng/mL Magnesium Level 2.20 1.80-2.40 mg/dL Blood Gas Flow-by 4.00 0.00-15.00 L/min Influenza Type A Antigen Negative For Type A NEGATIVE Influenza Type B Antigen Negative For Type B NEGATIVE SARS-CoV-2, RNA, NAAT NEGATIVE SARS CoV-2 NEGATIVE Group A Streptococcus Rapid negative NEGATIVE Test 12/20/24 11:46 12/20/24 11:36 12/20/24 11:19 Range/Units Erythrocyte Sedimentation Rate 37 H 0-30 MM/HR B-Type Natriuretic Peptide 62 0-100 pg/mL White Blood Count 8.3 4.8-10.8 K/uL Red Blood Count 3.87 L 4.00-5.50 MIL/uL Hemoglobin 13.7 12.0-16.0 g/dL Hematocrit 43.2 36-48 % Mean Corpuscular Volume 111.6 H 79-99 fL Mean Corpuscular Hemoglobin 35.4 H 27.0-33.0 pg Mean Corpuscular Hemoglobin Concent 31.7 L 32.0-36.0 g/dL Red Cell Distribution Width 13.0 11.0-15.5 % Platelet Count 153 130-400 K/uL Mean Platelet Volume 9.9 7.5-10.5 fL Immature Granulocyte % (Auto) 0.8 0-1 % Neutrophils (%) (Auto) 71.7 40.0-77.0 % Lymphocytes (%) (Auto) 18.1 L 21.0-51.0 % Monocytes (%) (Auto) 7.6 3.0-13.0 % Eosinophils (%) (Auto) 1.3 0.0-8.0 % Basophils (%) (Auto) 0.5 0.0-5.0 % Neutrophils # (Auto) 5.9 1.8-7.7 K/uL Lymphocytes # (Auto) 1.5 1.0-4.8 K/uL Monocytes # (Auto) 0.6 0.1-1.0 K/uL Eosinophils # (Auto) 0.11 0.00-0.70 K/uL Basophils # (Auto) 0.04 0.00-0.20 K/uL Absolute Immature Granulocyte (auto 0.07 0-1 K/uL Nucleated Red Blood Cells 0.0 0.0-0.19 % Red Blood Cell Morphology See comments Sodium Level 143 136-145 mmol/L Potassium Level 4.7 3.5-5.1 mmol/L Chloride Level 100 L 101-111 mmol/L Carbon Dioxide Level 37 H 21-32 mmol/L Blood Urea Nitrogen 9 7-18 mg/dL Creatinine 0.6 0.5-1.0 mg/dL Glomerular Filtration Rate Calc 95 >90 mL/min Random Glucose 110 H 70-105 mg/dL Total Calcium 8.7 8.5-10.1 mg/dL Total Bilirubin 0.6 0.2-1.0 mg/dL Direct Bilirubin 0.2 0.0-0.3 mg/dL Aspartate Amino Transf (AST/SGOT) 17 10-37 U/L Alanine Aminotransferase (ALT/SGPT) 20 12-78 U/L Alkaline Phosphatase 126 50-136 U/L Total Creatine Kinase 47 21-232 U/L Troponin I High Sensitivity 8 4-50 ng/L C-Reactive Protein, Quantitative 10.90 H 0.5-3.0 mg/L Total Protein 6.9 6.0-8.3 g/dL Albumin 3.4 L 3.5-5.0 g/dL Procalcitonin < 0.05 L 0.05-0.5 ng/mL Urine Color LIGHT-YELLOW YELLOW Urine Appearance CLEAR CLEAR Urine pH 7.5 5.0-8.0 Urine Specific [place] 1.011 1.001-1.031 Urine Protein NEGATIVE NEGATIVE mg/dL Urine Glucose (UA) NEGATIVE NEGATIVE mg/dL Urine Ketones NEGATIVE NEGATIVE mg/dL Urine Occult Blood +- (TRACE) H NEGATIVE Urine Nitrate NEGATIVE NEGATIVE Urine Bilirubin NEGATIVE NEGATIVE mg/dL Urine Urobilinogen 0.2 0.2-1.0 mg/dL Urine Leukocyte Esterase NEGATIVE NEGATIVE Suze/uL Urine RBC 0-1 0-1 /HPF Urine WBC 0-1 0-1 /HPF Urine Squamous Epithelial Cells RARE 0-2 /HPF Urine Bacteria None None Seen /HPF Current Medications Medications (Trade) Dose Ordered Sig/Jase Route PRN Reason Start Time Stop Time Status Last Admin Dose Admin Acetaminophen (TYLenol 325MG TAB) 650 mg Q6H PRN PO MILD PAIN (1-3) 12/20/24 14:00 01/19/25 13:59 Albuterol (DUOneb) 1 udvial Q6H PRN IH SHORTNESS OF BREATH 12/20/24 14:00 01/19/25 13:59 Albuterol (DUOneb) 1 udvial [id number] IH 12/20/24 15:00 12/20/24 14:32 DC Albuterol (DUOneb) 1 udvial [id number] IH 12/20/24 18:00 01/19/25 17:59 Budesonide (Pulmicort 0.5 Mg/2ml) 0.5 mg BIDRESP IH 12/20/24 18:00 01/19/25 17:59 Doxycycline Hyclate 250 ml @ 125 mls/hr BID IV 12/20/24 21:00 12/30/24 20:59 Doxycycline Hyclate 250 ml @ 125 mls/hr Q12H STAT IV 12/20/24 12:14 12/20/24 14:13 DC 12/20/24 12:23 125 MLS/HR Guaifenesin/ Dextromethorphan (RobiTUSSin DM 200/20MG 10ML) 10 ml Q6H PRN PO COUGH 12/20/24 14:00 01/19/25 13:59 Hydralazine HCl (APRESOLine 20MG INJ) 10 mg Q6H PRN IV ADMINISTER FOR SBP > 170 12/20/24 14:00 01/19/25 13:59 Levofloxacin/ Dextrose 100 ml @ 100 mls/hr Q24H IV 12/20/24 12:30 12/20/24 12:38 DC Magnesium Sulfate 50 ml @ 0 mls/hr PROTOCOL IV 12/20/24 14:00 01/19/25 13:59 Meropenem (Merrem 1gm) 1 gm Q12H IVPB 12/20/24 14:00 12/20/24 13:50 DC Meropenem (Merrem 1gm) 1 gm Q8H IVPB 12/20/24 14:00 12/30/24 13:59 12/20/24 14:37 1 GM Methylprednisolone Sodium Succinate (Solu-medROL 40MG) 60 mg Q6H IVP 12/20/24 18:00 01/19/25 17:59 Ondansetron HCl (zoFRAN 4MG INJ) 4 mg Q6H PRN IVP NAUSEA/VOMITING 12/20/24 14:00 01/19/25 13:59 Pantoprazole Sodium (PROTonix 40MG INJ) 40 mg Q24H IVP 12/20/24 14:00 01/19/25 13:59 12/20/24 14:37 40 MG Pharmacy Profile Note (Pharmacy Communication) 1 each ONCE MISC 12/20/24 14:00 12/20/24 13:48 DC Potassium Chloride 100 ml @ 50 mls/hr AD PRN IV POTASSIUM PROTOCOL 12/20/24 14:00 01/19/25 13:59 DIAGNOSTICS / RADIOLOGY: SERVICE 1134 REASON: SOB ORDERING PHYSICIAN: CYN GARLAND MD PROCEDURE: CXR1VW - CHEST 1VW EXAM: CR Chest, 1 View. CLINICAL HISTORY: SOB COMPARISON: Radiograph dated June 17, 2023 FINDINGS: There is bilateral perihilar and bibasilar airspace disease that may reflect pulmonary edema. No pleural effusion or pneumothorax. Heart size is stable. Pulmonary vascular congestion. IMPRESSION: 1. Bilateral perihilar and bibasilar airspace disease, possibly representing pulmonary edema with pulmonary vascular congestion /[place] DICTATED BY: MARA GARZA Jr., MD DATE: 12/20/241401 ELECTRONICALLY SIGNED BY: MARA GARZA Jr., MD DATE: 12/20/24 1402 ASSESSMENT: Acute on severe chronic COPD exacerbation, POA Suspected hx of pulmonary fibrosis, POA Acute on chronic hypoxemic respiratory failure, severe, POA Acute on chronic hypercapnic respiratory failure, POA Atypical chest pain, POA Suspected developing multifocal community-acquired pneumonia, POA History of COPD, POA History of pulmonary hypertension, POA History of chronic hypoxemic respiratory failure on supplemental O2 therapy POA Hypertension, POA Hyperlipidemia, POA Morbid obesity, POA History of penicillin allergy, POA PLAN: Patient will be admitted to ICU Continue with noninvasive support with BiPAP, we will monitor ABG serially Consultation with critical Care will be requested We will obtain sputum culture, pneumonia serologies We will start patient on broad-spectrum antibiotics with IV meropenem/doxycycline Patient on Solu-Medrol 60 mg q.6 hours and we will slowly wean steroids as tolerated We will start patient on scheduled nebulizers and Pulmicort twice daily We will keep patient on NPO while she remains on BiPAP We will obtain a 2D echocardiogram, we will also obtain D-dimer testing, if significantly elevated, we will obtain a CT PE protocol to rule out any concomitant pulmonary embolism due to severe hypoxemia on presentation Patient's case was discussed with Dr. Crenshaw, appreciate recommendations All labs will be repeated in the morning Home medications will be reconciled and updated once available We will keep patient on GI prophylaxis Protonix, DVT prophylaxis with Lovenox Date of service: 12/20/2024 Condition: Critical, patient states that she wants to have more time and think about her code status with regards to intubation and resuscitation status tonight, she will let us know tomorrow about her code status Plan of care was discussed with patient at bedside, Lake Barber MD Advanced Care Planning: Which of the following were discussed: Hospice care: Yes __ No _X_ Therapeutic options: Yes _X_ No __ Advance directives: Yes _X_ No __ Other discussions: Discussed with who?: Patient Voluntary nature of this service was explained to the patient? Yes _x_ No __ Amount of time spent: 20 minutes LAKE BARBER MD Dec 20, 2024 16:09
--- NOTE | 2024-12-20 16:10 | CONS ---
[facility] CARDIOLOGY CONSULTATION NOTE Date Patient Seen: Dec 20, 2024 Time of Visit: 16:01 Reason for Consultation: [ atypical chest pain] History of Present Illness: [Patient is a 74 yo F with PMH CLARK, COPD on 2L home oxygen, hypothyroidism, HTN who states she has had two recent pneumonia infections and has become short of breath. She had a RHC 06/2023: Mean RA: 16/14/10, RV: 41/16, PA: 40/23/30, PCWP: 22//19, SVC O2 sat: 71.5% PA O2 sat: 72.2%, Arterial O2 sat: 93.7% on 4L, CO/CI: 4.66/2.2 c/w Moderate mixed group II-group III pulmonary hypertension. The LHC 06/2023 with 30% mid LAD, 40% stenosis of mid to distal RCA, and 20% proximal LCx. CT chest had showed mild interstitial fibrosis. She has not seen me in a year in the clinic, however, she has been following Dr Diaz from Pulmonary standpoint and she reports he recently took her off biPAP. ] Past Medical History: [ ] Past Surgical History: [ ] Family History: [ ] Social History: [ ] Habits: [Never] smoker. [Denies] alcohol consumption. [Denies] illicit drug use Home Meds: [ ] Current Meds: [ ] Review of Systems: CONST: [No fever, fatigue, or weight changes.] EYES: [No recent vision problems.] ENT: [No congestion, ear pain, or sore throat.] C/V: [No chest pain, palpitations, or edema.] RESP: [No cough, congestion, wheezing or shortness of breath.] GI: [No abdominal pain, nausea, vomiting, constipation, or diarrhea.] : [No incontinence or dysuria.] SKIN: [No rash.] NEURO: [No headache, focal numbness or weakness, dizziness, or seizures.] PSYCH: [No depression or anxiety.] HEME: [No abnormal bruising or bleeding.] LYMPH: [No swollen glands.] Physical Examination: GENERAL: [No acute distress.] HEAD: [Normal with no signs of head trauma.] EYES: [PERRLA, EOMI, conjunctiva and sclera normal.] ENT: [Hearing grossly intact, normal oropharynx.] NECK: [Supple without JVD. There is no tenderness, lymphadenopathy, or masses. No thyromegaly. Normal carotid upstrokes without bruits.] LUNGS: [Clear breath sounds bilaterally. There are right basilar rales one third of the way up the chest. No wheezes, or rhonchi.] HEART: [Normal rate and rhythm. Normal S1 and S2 without mumurs, gallop or rub.] VASC: [Peripheral pulses +2 bilaterally.] ABD: [Bowel sounds normal, soft, nontender, no masses, no organomegaly. No audible bruits.] : [Not examined] LYMPH: [No lymphadenopathy noted.] EXT: [No clubbing, cyanosis or edema.] SKIN: [No rashes or lesions noted.] NEURO: [Awake, alert, and oriented x3. No focal sensory or strength deficits noted.] Vital Signs (last 8hr) Date Time Temp Pulse Resp B/P (MAP) Pulse Ox O2 Delivery O2 Flow Rate FiO2 12/20/24 15:51 60 33 40 12/20/24 15:14 98.2 66 21 174/78 96 Bi-PAP+ 40 12/20/24 14:09 98.2 65 21 151/73 96 Bi-PAP+ 40 12/20/24 13:25 64 29 40 12/20/24 13:08 61 24 12/20/24 12:15 98.2 62 22 151/73 86 Nasal Cannula* 4 36 12/20/24 11:59 98.2 64 20 151/73 88 Nasal Cannula* 4 36 12/20/24 11:24 98.4 66 20 128/58 78 Nasal Cannula 2.0 Laboratory: [ ] Hematology Labs: Test 12/20/24 11:46 12/20/24 11:36 Range/Units Erythrocyte Sedimentation Rate 37 H 0-30 MM/HR White Blood Count 8.3 4.8-10.8 K/uL Red Blood Count 3.87 L 4.00-5.50 MIL/uL Hemoglobin 13.7 12.0-16.0 g/dL Hematocrit 43.2 36-48 % Mean Corpuscular Volume 111.6 H 79-99 fL Mean Corpuscular Hemoglobin 35.4 H 27.0-33.0 pg Mean Corpuscular Hemoglobin Concent 31.7 L 32.0-36.0 g/dL Red Cell Distribution Width 13.0 11.0-15.5 % Platelet Count 153 130-400 K/uL Mean Platelet Volume 9.9 7.5-10.5 fL Immature Granulocyte % (Auto) 0.8 0-1 % Neutrophils (%) (Auto) 71.7 40.0-77.0 % Lymphocytes (%) (Auto) 18.1 L 21.0-51.0 % Monocytes (%) (Auto) 7.6 3.0-13.0 % Eosinophils (%) (Auto) 1.3 0.0-8.0 % Basophils (%) (Auto) 0.5 0.0-5.0 % Neutrophils # (Auto) 5.9 1.8-7.7 K/uL Lymphocytes # (Auto) 1.5 1.0-4.8 K/uL Monocytes # (Auto) 0.6 0.1-1.0 K/uL Eosinophils # (Auto) 0.11 0.00-0.70 K/uL Basophils # (Auto) 0.04 0.00-0.20 K/uL Absolute Immature Granulocyte (auto 0.07 0-1 K/uL Nucleated Red Blood Cells 0.0 0.0-0.19 % Red Blood Cell Morphology See comments Chemistry Labs: Test 12/20/24 14:23 12/20/24 11:46 12/20/24 11:36 Range/Units Magnesium Level 2.20 1.80-2.40 mg/dL B-Type Natriuretic Peptide 62 0-100 pg/mL Sodium Level 143 136-145 mmol/L Potassium Level 4.7 3.5-5.1 mmol/L Chloride Level 100 L 101-111 mmol/L Carbon Dioxide Level 37 H 21-32 mmol/L Blood Urea Nitrogen 9 7-18 mg/dL Creatinine 0.6 0.5-1.0 mg/dL Glomerular Filtration Rate Calc 95 >90 mL/min Random Glucose 110 H 70-105 mg/dL Total Calcium 8.7 8.5-10.1 mg/dL Total Bilirubin 0.6 0.2-1.0 mg/dL Direct Bilirubin 0.2 0.0-0.3 mg/dL Aspartate Amino Transf (AST/SGOT) 17 10-37 U/L Alanine Aminotransferase (ALT/SGPT) 20 12-78 U/L Alkaline Phosphatase 126 50-136 U/L Total Creatine Kinase 47 21-232 U/L Troponin I High Sensitivity 8 4-50 ng/L C-Reactive Protein, Quantitative 10.90 H 0.5-3.0 mg/L Total Protein 6.9 6.0-8.3 g/dL Albumin 3.4 L 3.5-5.0 g/dL Procalcitonin < 0.05 L 0.05-0.5 ng/mL Coagulation Labs: Test 12/20/24 14:23 Range/Units Prothrombin Time 10.2 9.6-11.6 SEC Prothromb Time International Ratio 0.96 0.85-1.15 Activated Partial Thromboplast Time 26.8 26.3-35.5 SEC D-Dimer Quantitative (PE/DVT) 882 *H 0-500 ng/mL Diagnostics / Radiology: [Copy/Paste Echos/Imaging Report here] Assessment: [COPD exacerbation Moderate Pulmonary HTN atypical chest pain ] Plan: [ #atypical chest pain -Trop and BNP neg -ECG no ST-T changes -given worsening dyspnea, recommend high resolution CT chest when she is stable -2d echo ordered ] XAVIER ALBRIGHT MD Dec 20, 2024 16:10
[2024-12-20] MEDS ORDERED: FAMO-290 PO (16:46)
[2024-12-20] MEDS ORDERED: UMEC1DIS IH (16:46)
[2024-12-20 17:21] LABS: ABG BASE EXCESS 4.8 mmol/L (-2.0-3.0); ABG HCO3 32.6 mmol/L (21.0-28.0); ABG OXYGEN SATURATION 85.4 % (94.0-98.0); ABG PCO2 62 mmHg (32-45); ABG PH 7.340 (7.350-7.450); DEVICE COMMENT RR SILVIA RN; PO2, ARTERIAL BG 54.1 mmHg (83.0-108.0); TEMPERATURE, CELSIUS BG 37.0 CELSIUS (35.5-37.0); VENT MODE, BG AVAPS (ROOM AIR)
[2024-12-20] MEDS ORDERED: Solu-medROL 40MG VIAL IVP SCH (18:00)
[2024-12-20 18:15] LABS: CREATINE KINASE, TOTAL 38.0 U/L (21-232)
--- NOTE | 2024-12-20 18:54 | NUR ---
CT ANGIO ON HOLD, PT UNSTABLE FOR CT EXAMINATION. PT ALSO UNABLE TO LAY SEMI FLAT FOR EXAM. JESUS DON WILL CALL BACK IF ANY CHANGES.
[2024-12-20] MEDS: BUDESONIDE 0.5 MG/2 ML INH IH SCH (19:04)
[2024-12-20] MEDS: 0.9%NACL 1000ML 1,000 ML IV SCH (20:10)
[2024-12-20] MEDS: DOXYCYCLINE 100MG+NS 250ML 250 ML IV SCH (20:10)
[2024-12-20] MEDS: Solu-medROL 40MG VIAL IVP SCH (20:11)
[2024-12-20] MEDS: PRAMIPEXOLE DI HCL 1.5 MG PO SCH (21:00)
[2024-12-21] VITALS (44 sets, daily range): BP systolic 109–165; BP diastolic 40–103; PULSE 56–77; RESP 14–63; TEMP 98.2–98.4; O2SAT 90–99
[2024-12-21 04:08] LABS: ABG BASE EXCESS 6.0 mmol/L (-2.0-3.0); ABG HCO3 35.8 mmol/L (21.0-28.0); ABG OXYGEN SATURATION 96.2 % (94.0-98.0); ABG PCO2 79 mmHg (32-45); ABG PH 7.273 (7.350-7.450); CARBON MONOXIDE 2.6 % (0.5-1.5); PO2, ARTERIAL BG 89.5 mmHg (83.0-108.0); TEMPERATURE, CELSIUS BG 37.0 CELSIUS (35.5-37.0); VENT MODE, BG AVAP,MAX25,MIN1 (ROOM AIR)
[2024-12-21 04:57] LABS: IMMATURE GRANULOCYTE ABSOLUTE 0.07 K/uL (0-1); NUCLEATED RED BLOOD CELLS 0.0 % (0.0-0.19); PLATELET COUNT (AUTO) 114 K/uL (130-400); RED BLOOD CELL COUNT(AUTO) 3.71 MIL/uL (4.00-5.50); RED CELL DISTRIBUTION WIDTH 12.6 % (11.0-15.5); WHITE BLOOD COUNT (AUTO) 5.4 K/uL (4.8-10.8)
[2024-12-21 05:26] LABS: ASPARTATE AMINOTRANSFERASE 18.0 U/L (10-37); CREATININE 0.6 mg/dL (0.5-1.0); GLOMERULAR FILTR. RATE CALC 95.0 mL/min (>90); GLUCOSE,RANDOM 151.0 mg/dL (70-105); PHOSPHORUS 3.6 mg/dL (2.5-4.9); SODIUM SERUM 140.0 mmol/L (136-145); TOTAL PROTEIN, SERUM 6.3 g/dL (6.0-8.3); UREA NITROGEN, BLOOD 8.0 mg/dL (7-18)
--- NOTE | 2024-12-21 05:39 | NUR ---
per JESUS Tuttle pt still on bipap and un able to lay flat for exam
--- NOTE | 2024-12-21 07:15 | HMCIMG ---
EXAMINATION: ULTRASOUND OF THE ABDOMEN (LIMITED). CLINICAL HISTORY: Pain. COMPARISON: None. TECHNIQUE: Real-time grayscale ultrasound images of the abdomen. FINDINGS: There is no free fluid in the peritoneal cavity in all the fur quadrants. IMPRESSION: No ascites. /[place]
--- NOTE | 2024-12-21 08:09 | PN ---
[facility] PROGRESS NOTE Date Patient Seen: Dec 21, 2024 Time of Visit: 08:04 Supervising Physician: TYLER ACUÑA MD Primary Care Physician: KASSIDY SEAMAN Outpatient Specialists: [ ] Inpatient Consults: CRISTINA REYNOSO, PROBLEM LIST: Acute on chronic hypoxemic and hypercapnic respiratory failure POA REQUIRING NIV Acute respiratory acidosis 2/2 to combination of OHS/COPD exacerbation, POA Left upper lobe pneumoniae POA Trace Bilateral pleural effusions Main pulmonary artery appears mildly dilated measuring 3.1 cm suspected pulmonary hypertension on CT Mild hypoalbuminemia POA Hyperglycemia POA Elevated D-dimer negative for DVT, Well's score for PE 0 point Abdominal distention r/o ascites Essential hypertension Obesity BMI of 39.1 Current smoker half pack a day Current ETOH 3 glasses of wine a day, @ risk for alcohol withdrawals INTERVAL HISTORY: He is awake alert and oriented x3. currently on BiPAP with the AVAPS. As per RN no major overnight events. Patient removes mass to talk and then put back. She has been doing this frequently. Per ABGs showed worsening from yesterday with a pH of 7.27 pCO2 of 79 PO2 of 89.5 and bicarb of 35.8. CBC unremarkable similar to yesterday. Chemistry doing well. She appears to be on no respiratory distress at this time. She is adamant that she wants to eat. We will allow her to intermittently be off the NIV for meals. Then placed back on NIV as tolerated. HaD a conversation with the patient regarding code status. Goal of this conversation was to discuss goals of care. I discussed regarding what advanced directives in detail and what advanced care planning entails. We also discussed CODE STATUS. I informed the patient that in the case of cardiopulmonary demise, resuscitation efforts including chest compressions and intubations do not lead to ideal postresuscitative outcomes. We discussed patient's particular disease processes and how this could be potentially impacting the patient's outcome in the event of a cardiopulmonary arrest. All questions related to resuscitation, CODE STATUS, advanced directives were answered in detail. Patient wishes to not receive resuscitated measures such as CPR or intubation. We will change CODE STATUS to DO NOT INTUBATE and DO NOT RESUSCITATE. REVIEW OF SYSTEMS: 12 point ROS reviewed with patient. Pertinent positives mentioned above. Otherwise negative. PHYSICAL EXAM: GENERAL: alert, weak, awake oriented x 3 HEENT: EOMI, Sclera non icteric, moist mucosa NECK: Supple, no JVD, trachea midline LUNGS: Diminished breath sounds bilaterally. No wheezes HEART: Regular rate and rhythm. Normal S1 and S2, without murmurs ABD: Abdomen distended firm, nontender. Bowel sounds present EXT: No clubbing cyanosis. trace edema to BLE NEURO: Alert and oriented to person, follows commands Vital Signs (last 8hr) Date Time Temp Pulse Resp B/P (MAP) Pulse Ox O2 Delivery O2 Flow Rate FiO2 12/21/24 06:30 58 30 12/21/24 06:29 60 31 30 12/21/24 06:00 59 30 140/65 96 12/21/24 05:30 60 27 140/57 96 12/21/24 05:00 57 26 142/66 94 12/21/24 04:30 58 27 148/62 98 12/21/24 04:00 99 Bi-PAP+ 50 12/21/24 04:00 98.4 62 27 139/103 99 BIPAP 50 12/21/24 03:30 62 27 129/68 94 12/21/24 03:00 56 23 121/54 93 12/21/24 02:30 59 38 133/65 95 12/21/24 02:00 77 19 133/63 99 12/21/24 01:30 72 27 110/84 98 12/21/24 01:00 57 33 110/41 93 12/21/24 00:34 64 32 50 12/21/24 00:30 98.2 56 33 109/46 94 BIPAP 50 LABS: Hematology Labs: Test 12/21/24 04:49 12/20/24 11:46 12/20/24 11:36 Range/Units White Blood Count 5.4 # 4.8-10.8 K/uL Red Blood Count 3.71 L 4.00-5.50 MIL/uL Hemoglobin 13.3 12.0-16.0 g/dL Hematocrit 41.1 36-48 % Mean Corpuscular Volume 110.8 H 79-99 fL Mean Corpuscular Hemoglobin 35.8 H 27.0-33.0 pg Mean Corpuscular Hemoglobin Concent 32.4 32.0-36.0 g/dL Red Cell Distribution Width 12.6 11.0-15.5 % Platelet Count 114 #L 130-400 K/uL Mean Platelet Volume 9.5 7.5-10.5 fL Immature Granulocyte % (Auto) 1.3 H 0-1 % Neutrophils (%) (Auto) 82.1 H 40.0-77.0 % Lymphocytes (%) (Auto) 11.2 L 21.0-51.0 % Monocytes (%) (Auto) 5.2 3.0-13.0 % Eosinophils (%) (Auto) 0.0 0.0-8.0 % Basophils (%) (Auto) 0.2 0.0-5.0 % Neutrophils # (Auto) 4.4 1.8-7.7 K/uL Lymphocytes # (Auto) 0.6 L 1.0-4.8 K/uL Monocytes # (Auto) 0.3 0.1-1.0 K/uL Eosinophils # (Auto) 0.00 0.00-0.70 K/uL Basophils # (Auto) 0.01 0.00-0.20 K/uL Absolute Immature Granulocyte (auto 0.07 0-1 K/uL Nucleated Red Blood Cells 0.0 0.0-0.19 % Erythrocyte Sedimentation Rate 37 H 0-30 MM/HR Red Blood Cell Morphology See comments Chemistry Labs: Test 12/21/24 04:49 12/20/24 17:47 12/20/24 11:46 12/20/24 11:36 Range/Units Sodium Level 140 136-145 mmol/L Potassium Level 4.9 3.5-5.1 mmol/L Chloride Level 103 101-111 mmol/L Carbon Dioxide Level 32 21-32 mmol/L Blood Urea Nitrogen 8 7-18 mg/dL Creatinine 0.6 0.5-1.0 mg/dL Glomerular Filtration Rate Calc 95 >90 mL/min Random Glucose 151 H 70-105 mg/dL Total Calcium 8.3 L 8.5-10.1 mg/dL Phosphorus Level 3.6 2.5-4.9 mg/dL Magnesium Level 2.30 1.80-2.40 mg/dL Total Bilirubin 0.5 0.2-1.0 mg/dL Aspartate Amino Transf (AST/SGOT) 18 10-37 U/L Alanine Aminotransferase (ALT/SGPT) 20 12-78 U/L Alkaline Phosphatase 118 50-136 U/L Total Protein 6.3 6.0-8.3 g/dL Albumin 3.0 L 3.5-5.0 g/dL Total Creatine Kinase 38 21-232 U/L Troponin I High Sensitivity 9.9 4-50 ng/L B-Type Natriuretic Peptide 62 0-100 pg/mL Direct Bilirubin 0.2 0.0-0.3 mg/dL C-Reactive Protein, Quantitative 10.90 H 0.5-3.0 mg/L Procalcitonin < 0.05 L 0.05-0.5 ng/mL Coagulation Labs: Test 12/20/24 14:23 Range/Units Prothrombin Time 10.2 9.6-11.6 SEC Prothromb Time International Ratio 0.96 0.85-1.15 Activated Partial Thromboplast Time 26.8 26.3-35.5 SEC D-Dimer Quantitative (PE/DVT) 882 *H 0-500 ng/mL DIAGNOSTICS / RADIOLOGY RESULTS: [[place] [id number] [place] [address] IMAGING REPORT Signed PATIENT: YEE OTTO MR#: [id number] : 1950 SEX: F AGE: 74 LOCATION: [facility] ORDER [id number] STATUS: ADM IN REPORT#: [id number] SERVICE [id number] REASON: respiratory failure, r/o PE, hx of COPD, possible fibrosis, suspected PNA ORDERING PHYSICIAN: MALDONADO FLEMING MD PROCEDURE: [facility] PE - CT CHEST PE PROTOCOL WWO CONT EXAM: CTA Chest with and without Intravenous Contrast for PE evaluation CLINICAL HISTORY: respiratory failure, r/o PE, hx of COPD, possible fibrosis, suspected PNA TECHNIQUE: Axial CTA images of the chest with and without intravenous contrast using a pulmonary embolism protocol. Multiplanar reconstructed images were created and reviewed. CONTRAST: None. was administered without incident. COMPARISON: None provided. FINDINGS: PULMONARY ARTERIES: The main pulmonary artery appears mildly dilated, measuring 3.1 cm. No evidence of central or segmental pulmonary embolism is seen. AORTA: There is no evidence for aneurysm or dissection of the thoracic aorta. LUNGS: Trace bilateral pleural effusions with fissural extension. Patchy area of consolidation in the lingula of the left upper lobe. Pleuroparenchymal fibrotic bands in both lungs. Mild centriacinar emphysema in the bilateral upper lobes. PLEURAL SPACES: No evidence of pneumothorax. HEART: Mild cardiomegaly. No significant pericardial effusion. Atherosclerosis of the coronary arteries, thoracic aorta, and proximal branch thoracic vessels. LYMPH NODES: No lymphadenopathy is evident. BONES: Degenerative changes in the visualized spine. No focal osseous abnormality or acute fracture. UPPER ABDOMEN: 3.8 x 3.0 cm cyst in the left kidney. Small sliding hiatus hernia. IMPRESSION: 1. No evidence of pulmonary embolism. 2. Left upper lobe lingular consolidation presumably from an infectious etiology. 3. Mild trace bilateral pleural effusions. 4. Mild cardiomegaly. Atherosclerosis of the coronary arteries, thoracic aorta, and proximal branch thoracic vessels. 5. The main pulmonary artery appears mildly dilated, measuring 3.1 cm. Recommend echocardiography to evaluate for possible pulmonary [place] hypertension. 6. Pleuroparenchymal fibrotic bands in both lungs. /[place] DICTATED BY: MARA GARZA Jr., MD DATE: 12/21/241432 ELECTRONICALLY SIGNED BY: MARA GARZA Jr., MD DATE: 12/21/24 143 ] PLAN Continue Solu-Medrol 40 mg q.8 hours IV push Start clear liquid diet and advance as tolerated DC IV fluids Lasix 40 mg IV push x1 Continue IV antibiotics Given exposure of smoking for many years, patient has a developed COPD with exacerbation. Patient to follow up as outpatient at pulmonary clinic in two weeks for PFTs, we will continue with nebulizer treatments with atrovent, Pulmicort, steroids. Singulair 10 mg daily Follow respiratory cultures Maintain O2 sats above 88% Gi PPX with protonix due to steroids smoking cessation Continue patch PRN Influenza a and B negative, COVID-19 negative, Chest x-ray in the morning AVAPS T-max 25, P min 12, tidal volume 500, respiratory rate of 20, FiO2 of 40%, PRN and HS. NEURO: Minimize central acting medications as possible. Fall Precautions. Well lighted room through the day and minimize interruptions through the night to prevent acute delirium. CIWA protocol with diazepam PULMONARY: Supplemental 02 as needed Titrate Fio2 to keep Spo2 > or = 90% DuoNebs and CPT as needed IS hourly while awake for pulmonary hygiene Out of bed to chair as tolerated Follow ABG Chest x-ray in a.m. CARDIOVASCULAR: Follow hemodynamics. Titrate vasopressor to keep MAP >65 or systolic blood pressure >95mmHg Drips: None LINES: PIV GI & NUTRITION: Continue nutritional support Aspirations precautions Prokinetic agents and laxatives as needed KIDNEYS & ELECTROLYTES: Strict monitoring of intake and output Daily weights Avoid nephrotoxic agents Monitor electrolytes and replace as needed Goal urine output of 30mL/hr or 0.5mL/kg/hr Urine output: [ ] Fluid Balance: [ ] ENDOCRINE: Maintain blood glucose between 100-180 at all times. Insulin sliding scale for blood glucose management INFECTIOUS DISEASE: Trend temperature. [place]-culture if febrile. Micro: [ ] Respiratory culture Antibiotics: [ ] Per primary team on meropenem and doxycycline HEMATOLOGY & COAGULATION: Monitor H&H. Keep Hgb > 7 Transfuse 1 unit of PRBC for Hgb < 7 Transfuse 1 pack of platelets of platelets < 20, 000 Watch for any signs and symptoms of bleeding SKIN: Pressure ulcer prevention per facility protocol Rehab: PT/OT Prophylaxis: GI: [Protonix ] DVT: [ Lovenox] Code Status: Full Resuscitation Disposition: [ICU ] Other: Critical care time This patient required multiple bedside visits to manage the patient, review blood gases, coordinate with respiratory, nurses, talk to the family members and discuss advanced directives. I personally spent 45 minutes of critical care time in treatment of this patient. This includes patient management, time at bedside, time reviewing tests, labs, appropriate images and studies, documentation, and patient care coordination. This time excludes separately billable procedures. ATTESTATION BY PHYSICIAN I attest that I reviewed and discussed the case with the Physician Varnishing Unit Tool Setter as well as agree with the Physician Varnishing Unit Tool Setter's findings, plans of care, and documentation above. Tyler Hamilton MD, [facility] Dec 21, 2024 08:09
--- NOTE | 2024-12-21 08:47 | PN ---
[facility] CARDIOLOGY PROGRESS NOTE Date Patient Seen: Dec 21, 2024 Time of Visit: 08:45 Interval History: [ CXR with worsening bilateral opacities, changed po lasix to IV] Physical Examination: GENERAL: [No acute distress.] HEAD: [Normal with no signs of head trauma.] EYES: [PERRLA, EOMI, conjunctiva and sclera normal.] ENT: [Hearing grossly intact, normal oropharynx.] NECK: [Supple without JVD. There is no tenderness, lymphadenopathy, or masses. No thyromegaly. Normal carotid upstrokes without bruits.] LUNGS: [Clear breath sounds bilaterally. There are right basilar rales one third of the way up the chest. No wheezes, or rhonchi.] HEART: [Normal rate and rhythm. Normal S1 and S2 without mumurs, gallop or rub.] VASC: [Peripheral pulses +2 bilaterally.] ABD: [Bowel sounds normal, soft, nontender, no masses, no organomegaly. No audible bruits.] : [Not examined] LYMPH: [No lymphadenopathy noted.] EXT: [No clubbing, cyanosis or edema.] SKIN: [No rashes or lesions noted.] NEURO: [Awake, alert, and oriented x3. No focal sensory or strength deficits noted.] Laboratory: [ ] Hematology Labs: Test 12/21/24 04:49 12/20/24 11:46 12/20/24 11:36 Range/Units White Blood Count 5.4 # 4.8-10.8 K/uL Red Blood Count 3.71 L 4.00-5.50 MIL/uL Hemoglobin 13.3 12.0-16.0 g/dL Hematocrit 41.1 36-48 % Mean Corpuscular Volume 110.8 H 79-99 fL Mean Corpuscular Hemoglobin 35.8 H 27.0-33.0 pg Mean Corpuscular Hemoglobin Concent 32.4 32.0-36.0 g/dL Red Cell Distribution Width 12.6 11.0-15.5 % Platelet Count 114 #L 130-400 K/uL Mean Platelet Volume 9.5 7.5-10.5 fL Immature Granulocyte % (Auto) 1.3 H 0-1 % Neutrophils (%) (Auto) 82.1 H 40.0-77.0 % Lymphocytes (%) (Auto) 11.2 L 21.0-51.0 % Monocytes (%) (Auto) 5.2 3.0-13.0 % Eosinophils (%) (Auto) 0.0 0.0-8.0 % Basophils (%) (Auto) 0.2 0.0-5.0 % Neutrophils # (Auto) 4.4 1.8-7.7 K/uL Lymphocytes # (Auto) 0.6 L 1.0-4.8 K/uL Monocytes # (Auto) 0.3 0.1-1.0 K/uL Eosinophils # (Auto) 0.00 0.00-0.70 K/uL Basophils # (Auto) 0.01 0.00-0.20 K/uL Absolute Immature Granulocyte (auto 0.07 0-1 K/uL Nucleated Red Blood Cells 0.0 0.0-0.19 % Erythrocyte Sedimentation Rate 37 H 0-30 MM/HR Red Blood Cell Morphology See comments Chemistry Labs: Test 12/21/24 04:49 12/20/24 17:47 12/20/24 11:46 12/20/24 11:36 Range/Units Sodium Level 140 136-145 mmol/L Potassium Level 4.9 3.5-5.1 mmol/L Chloride Level 103 101-111 mmol/L Carbon Dioxide Level 32 21-32 mmol/L Blood Urea Nitrogen 8 7-18 mg/dL Creatinine 0.6 0.5-1.0 mg/dL Glomerular Filtration Rate Calc 95 >90 mL/min Random Glucose 151 H 70-105 mg/dL Total Calcium 8.3 L 8.5-10.1 mg/dL Phosphorus Level 3.6 2.5-4.9 mg/dL Magnesium Level 2.30 1.80-2.40 mg/dL Total Bilirubin 0.5 0.2-1.0 mg/dL Aspartate Amino Transf (AST/SGOT) 18 10-37 U/L Alanine Aminotransferase (ALT/SGPT) 20 12-78 U/L Alkaline Phosphatase 118 50-136 U/L Total Protein 6.3 6.0-8.3 g/dL Albumin 3.0 L 3.5-5.0 g/dL Total Creatine Kinase 38 21-232 U/L Troponin I High Sensitivity 9.9 4-50 ng/L B-Type Natriuretic Peptide 62 0-100 pg/mL Direct Bilirubin 0.2 0.0-0.3 mg/dL C-Reactive Protein, Quantitative 10.90 H 0.5-3.0 mg/L Procalcitonin < 0.05 L 0.05-0.5 ng/mL Coagulation Labs: Test 12/20/24 14:23 Range/Units Prothrombin Time 10.2 9.6-11.6 SEC Prothromb Time International Ratio 0.96 0.85-1.15 Activated Partial Thromboplast Time 26.8 26.3-35.5 SEC D-Dimer Quantitative (PE/DVT) 882 *H 0-500 ng/mL Diagnostics / Radiology: [Copy/Paste Echos/Imaging Report here] Impression and Plan: [COPD exacerbation Moderate Pulmonary HTN atypical chest pain Acute on chronic grade II diastolic dysfunction ] Plan: [ #atypical chest pain due to Acute on chronic grade II diastolic dysfunction and COPD exac -Trop and BNP neg -ECG no ST-T changes -given worsening dyspnea, recommend high resolution CT chest when she is stable -2d echo stage II diastolic dysfunction, otherwise normal, changed po lasix to IV 20 mg q8h ] XAVIER ALBRIGHT MD Dec 21, 2024 08:47
--- NOTE | 2024-12-21 09:25 | NUR ---
PT CARE RE BIPAP Spoke to pt about the recommendation of placing a protective barrier over the bridge of her nose because of the high risk of skin breakdown because of the bipap mask. Pt states that RT had attempted to place a barrier but she refused. Pt states that the barrier itself caused her discomfort. Pt educated on the need for frequent assessment of the skin under the bipap mask - voiced understanding. At present, no evidence of skin integrity impairment noted. Will discuss with pt's primary nurse.
[2024-12-21] MEDS: MULTIVITAMIN TABLET PO SCH (09:51)
[2024-12-21] MEDS: THIAMINE HCL 100 MG/ML 2ML VIAL IV SCH (09:56)
[2024-12-21] MEDS: ENOXAPARIN SODIUM 40 MG/0.4 ML SYRINGE SQ SCH (09:57)
--- NOTE | 2024-12-21 10:26 | NUR ---
MPOA- Directives Met with pt and completed MPOA and Advance Directives. Pradeep Rebolledo [phone] is mpoa. Copy on chart
[2024-12-21] MEDS ORDERED: IOHEXOL-350 75 ML VIAL IV ONE (12:07)
--- NOTE | 2024-12-21 13:15 | NUR ---
PT GONE TO CT SCAN IN PM. Addendum: 12/21/24 at 1416 by ESTRELLA GODDARD PT Amended: Links added.
--- NOTE | 2024-12-21 13:34 | HMCIMG ---
EXAM: CTA Chest with and without Intravenous Contrast for PE evaluation CLINICAL HISTORY: respiratory failure, r/o PE, hx of COPD, possible fibrosis, suspected PNA TECHNIQUE: Axial CTA images of the chest with and without intravenous contrast using a pulmonary embolism protocol. Multiplanar reconstructed images were created and reviewed. CONTRAST: None. was administered without incident. COMPARISON: None provided. FINDINGS: PULMONARY ARTERIES: The main pulmonary artery appears mildly dilated, measuring 3.1 cm. No evidence of central or segmental pulmonary embolism is seen. AORTA: There is no evidence for aneurysm or dissection of the thoracic aorta. LUNGS: Trace bilateral pleural effusions with fissural extension. Patchy area of consolidation in the lingula of the left upper lobe. Pleuroparenchymal fibrotic bands in both lungs. Mild centriacinar emphysema in the bilateral upper lobes. PLEURAL SPACES: No evidence of pneumothorax. HEART: Mild cardiomegaly. No significant pericardial effusion. Atherosclerosis of the coronary arteries, thoracic aorta, and proximal branch thoracic vessels. LYMPH NODES: No lymphadenopathy is evident. BONES: Degenerative changes in the visualized spine. No focal osseous abnormality or acute fracture. UPPER ABDOMEN: 3.8 x 3.0 cm cyst in the left kidney. Small sliding hiatus hernia. IMPRESSION: 1. No evidence of pulmonary embolism. 2. Left upper lobe lingular consolidation presumably from an infectious etiology. 3. Mild trace bilateral pleural effusions. 4. Mild cardiomegaly. Atherosclerosis of the coronary arteries, thoracic aorta, and proximal branch thoracic vessels. 5. The main pulmonary artery appears mildly dilated, measuring 3.1 cm. Recommend echocardiography to evaluate for possible pulmonary [place] hypertension. 6. Pleuroparenchymal fibrotic bands in both lungs. /[place]
--- NOTE | 2024-12-21 14:17 | HMCIMG ---
Comparison: Yesterday Findings: There are infiltrates noted in the bilateral perihilar areas similar to prior examination. The heart is enlarged. There are no acute fractures or pneumothorax. No significant effusion Impression: Bilateral perihilar infiltrates are stable /[place]
--- NOTE | 2024-12-21 14:44 | PN ---
[facility] PROGRESS NOTE Date of Service: Dec 21, 2024 Time of Service: 13:31 SUBJECTIVE: HISTORY OF PRESENT ILLNESS: Date of service: 12/22/2024, patient was seen in ER room 13, patient is critically ill This is a 74-year-old female with underlying history of COPD, suspected pulmonary fibrosis, chronic hypercapnic respiratory failure, obesity, chronic hypoxemic respiratory failure on supplemental O2 therapy as outpatient, hypertension, hyperlipidemia, hypothyroidism who presented to the ER for further evaluation of progressive shortness of breath. Patient states that she has been ill for the past one week and has been having cough, wheezing and congestion. She is short of breath with minimal activities. She has been having subjective chills at home. She has also been having chest pain worsened with coughing. She denies any recent falls or syncopal episodes. She is followed by Dr. Diaz with pulmonology as outpatient. She is followed by Dr. Crenshaw with Cardiology as outpatient. She denies any previous history of MS. denies previous history of congestive heart failure. Patient has a prior long-time smoking history. She recently was given a course of outpatient antibiotics with no significant improvement of symptoms. On presentation to the hospital, patient was noted to be afebrile with T-max of 98.4 F, heart rate of 66, blood pressure 128/58. Patient was noted to be si gnificantly hypoxemic with O2 saturations of 78 % on 2 L of O2 supplementation by nasal cannula. Labs on presentation showed WBC count of 8300, hemoglobin of 13.7, platelet count of 447192. BMP showed sodium of 143, potassium 4.7, BUN of nine, creatinine 0.6, magnesium of 2.10. Chest x-ray showed bilateral perihilar and bibasilar infiltrates. Patient will be admitted for further management of severe COPD exacerbation with acute on chronic hypercapnic and hypoxemic respiratory failure. Patient will be initiated on noninvasive ventilation with BiPAP, she will receive broad-spectrum antibiotics. Consultation with critical Care will be requested. Patient with also signs of atypical chest pain, D-dimer we will be obtained and if significantly elevated, we will consider CT PE protocol to rule out PE, we will have Cardiology follow this patient. Patient states that she wants to have more time and think about her code status with regards to intubation and resuscitation status tonight, she will let us know tomorrow about her code status. I have told her in case of emergency, she will need to urgently decide, she still told me she wants to think with regards to code status. She is able to tell me her name and and answer questions appropriately and able to make decisions. SUBJECTIVE: 12/21/2024: Patient was seen and examined in room 210. Patient was on noninvasive ventilation upon entering the room. Patient reports having history of COPD for a long time, and started feeling short of breath when she walked a few steps. Patient presented to the ER because of progressive symptoms and subjective chills at home. Patient denies fever, chills, sputum production, burning sensation in urine today. Patient reports that she hasn't eaten since Thursday and was hungry today. O2 flow rate - 3.0, FiO2-32. ABG today - ph-7.273, pco2- 62, po2- 89.5, HCO3- 35.8. Labs today-WBC-5.4, ESR-37, procal-<0.05 REVIEW OF SYSTEMS CONSTITUTIONAL: Denies fevers, chills, or night sweats. No unintentional weight loss reported. NEUROLOGICAL: Denies headache, amaurosis fugax, motor weakness, sensory deficit, vertigo/spinning sensation, gait abnormalities, or tremors. ENT: No hearing loss, otalgia, otorrhea, rhinitis, rhinorrhea, hoarseness, or sore throat. CARDIOVASCULAR: Denies any exertional angina, dyspnea on exertion, orthopnea, paroxysmal nocturnal dyspnea, palpitations, life-threatening arrhythmias, claudication. PULMONARY: Some breath, cough, congestion, wheezing ongoing for about one week, reports having history of COPD, reports being on O2 therapy as outpatient SLEEP: Denies morning headaches, daytime somnolence or napping. Denies difficulty falling asleep, staying asleep, waking from sleep. Denies knowledge of snoring. GASTROINTESTINAL: Denies any type of dysphagia to either liquids or solids. Denies nausea, vomiting, pyrosis, early satiety, abdominal pain, diarrhea, constipation, or changes in stool consistency or caliber. Denies coffee-ground emesis, hematemesis, hematochezia, or melanotic stools. GENITOURINARY: Denies frequency, urgency, nocturia, hematuria or incontinence (Storage/Irritative symptoms.) Low urinary stream, straining to void, urinary intermittency or hesitancy, splitting of the voiding stream, terminal dribbling. ENDOCRINOLOGIC: Denies polyuria, polydipsia, polyphagia or heat/cold intolerances. HEMATOLOGIC: Denies thrombophilia/previous clots, or coagulopathy/bleeding disorders. ONCOLOGIC: Denies personal history of malignancy. DERMATOLOGIC: Denies rashes or pruritus. PSYCHIATRIC: Denies any suicidal or homicidal ideation. Denies hallucinations. PHYSICAL EXAM GENERAL APPEARANCE: The patient is awake, alert, and oriented, in no acute cardiopulmonary distress. NEUROLOGICAL: Cranial nerves II-XII grossly intact. Motor is 5/5 in bilateral upper and lower extremities proximal to distal. No sensory deficits. HEENT: Face is symmetric. Pupils are equal and reactive. Extraocular movements are intact. NECK: Supple. No JVD. No thyromegaly. No submental, submandibular, pre- /postauricular, occipital or supraclavicular lymphadenopathy. CHEST: Normal chest expansion. No Telemetry. LUNGS: Crackles noted of bilateral lung bases with expiratory wheezing CARDIOVASCULAR: Regular. S1 and S2 normal. No appreciable rubs, murmurs or gallops. ABDOMEN: Soft, nontender, and nondistended. There is no rebound, voluntary guarding, or rigidity. : Deferred. No Draper. EXTREMITIES: Trace edema noted of bilateral lower extremity SKIN: No skin breakdown. Vital Signs (last 8hr) Date Time Temp Pulse Resp B/P (MAP) Pulse Ox O2 Delivery O2 Flow Rate FiO2 12/21/24 11:03 69 30 12/21/24 11:03 63 18 N/Cannula Low lpm 3.0 32 12/21/24 09:43 63 18 N/Cannula Low lpm 3.0 32 12/21/24 08:51 61 30 30 12/21/24 08:40 58 28 161/87 (111) 85 12/21/24 07:55 58 14 93 12/21/24 07:40 58 30 153/78 (103) 92 12/21/24 06:55 62 28 91 12/21/24 06:30 58 30 12/21/24 06:29 60 31 30 12/21/24 06:00 59 30 140/65 96 LABS: Laboratory: Test 12/21/24 04:49 12/21/24 04:06 12/20/24 17:47 12/20/24 17:19 Range/Units White Blood Count 5.4 # 4.8-10.8 K/uL Red Blood Count 3.71 L 4.00-5.50 MIL/uL Hemoglobin 13.3 12.0-16.0 g/dL Hematocrit 41.1 36-48 % Mean Corpuscular Volume 110.8 H 79-99 fL Mean Corpuscular Hemoglobin 35.8 H 27.0-33.0 pg Mean Corpuscular Hemoglobin Concent 32.4 32.0-36.0 g/dL Red Cell Distribution Width 12.6 11.0-15.5 % Platelet Count 114 #L 130-400 K/uL Mean Platelet Volume 9.5 7.5-10.5 fL Immature Granulocyte % (Auto) 1.3 H 0-1 % Neutrophils (%) (Auto) 82.1 H 40.0-77.0 % Lymphocytes (%) (Auto) 11.2 L 21.0-51.0 % Monocytes (%) (Auto) 5.2 3.0-13.0 % Eosinophils (%) (Auto) 0.0 0.0-8.0 % Basophils (%) (Auto) 0.2 0.0-5.0 % Neutrophils # (Auto) 4.4 1.8-7.7 K/uL Lymphocytes # (Auto) 0.6 L 1.0-4.8 K/uL Monocytes # (Auto) 0.3 0.1-1.0 K/uL Eosinophils # (Auto) 0.00 0.00-0.70 K/uL Basophils # (Auto) 0.01 0.00-0.20 K/uL Absolute Immature Granulocyte (auto 0.07 0-1 K/uL Nucleated Red Blood Cells 0.0 0.0-0.19 % Sodium Level 140 136-145 mmol/L Potassium Level 4.9 3.5-5.1 mmol/L Chloride Level 103 101-111 mmol/L Carbon Dioxide Level 32 21-32 mmol/L Blood Urea Nitrogen 8 7-18 mg/dL Creatinine 0.6 0.5-1.0 mg/dL Glomerular Filtration Rate Calc 95 >90 mL/min Random Glucose 151 H 70-105 mg/dL Total Calcium 8.3 L 8.5-10.1 mg/dL Phosphorus Level 3.6 2.5-4.9 mg/dL Magnesium Level 2.30 1.80-2.40 mg/dL Total Bilirubin 0.5 0.2-1.0 mg/dL Aspartate Amino Transf (AST/SGOT) 18 10-37 U/L Alanine Aminotransferase (ALT/SGPT) 20 12-78 U/L Alkaline Phosphatase 118 50-136 U/L Total Protein 6.3 6.0-8.3 g/dL Albumin 3.0 L 3.5-5.0 g/dL Blood Gas Specimen Type Arterial Arterial Blood pH 7.273 L 7.350-7.450 Arterial Blood Partial Pressure CO2 79 *H 32-45 mmHg Arterial Blood Partial Pressure O2 89.5 83.0-108.0 mmHg Arterial Blood HCO3 35.8 H 21.0-28.0 mmol/L Arterial Blood Oxygen Saturation 96.2 94.0-98.0 % Arterial Blood Base Excess 6.0 H -2.0-3.0 mmol/L Hemoglobin (Blood Gas) 14.0 12.0-16.0 g/dL Sodium (Blood Gas) 139 136-145 MMOL/L Bedside Potassium (Blood Gas) 4.7 H 3.4-4.5 MMOL/L Bedside Chloride (Blood Gas) 100 98-107 MMOL/L Bedside Glucose (Blood Gas) 152 H 65-95 MG/DL Bedside Ionized Calcium (Blood Gas) 1.17 1.15-1.33 MMOL/L Bedside Lactic Acid (Blood Gas) 0.86 H 0.36-0.75 MMOL/L Blood Gas Temperature 37.0 35.5-37.0 CELSIUS Blood Gas Respiration Rate 20.0 min. Blood Gas Vent Mode AVAP,MAX25,MIN1 ROOM AIR FiO2 50.0 % Blood Gas Tidal Volume 500 ml Blood Gas Specimen Comment RR,RN NATHALY Total Creatine Kinase 38 21-232 U/L Troponin I High Sensitivity 9.9 4-50 ng/L Blood Gas PEEP 7 cm H2O Test 12/20/24 14:23 12/20/24 13:10 12/20/24 12:05 12/20/24 11:46 Range/Units Prothrombin Time 10.2 9.6-11.6 SEC Prothromb Time International Ratio 0.96 0.85-1.15 Activated Partial Thromboplast Time 26.8 26.3-35.5 SEC D-Dimer Quantitative (PE/DVT) 882 *H 0-500 ng/mL Blood Gas Flow-by 4.00 0.00-15.00 L/min Influenza Type A Antigen Negative For Type A NEGATIVE Influenza Type B Antigen Negative For Type B NEGATIVE SARS-CoV-2, RNA, NAAT NEGATIVE SARS CoV-2 NEGATIVE Group A Streptococcus Rapid negative NEGATIVE Erythrocyte Sedimentation Rate 37 H 0-30 MM/HR B-Type Natriuretic Peptide 62 0-100 pg/mL Test 12/20/24 11:36 12/20/24 11:19 Range/Units Red Blood Cell Morphology See comments Direct Bilirubin 0.2 0.0-0.3 mg/dL C-Reactive Protein, Quantitative 10.90 H 0.5-3.0 mg/L Procalcitonin < 0.05 L 0.05-0.5 ng/mL Urine Color LIGHT-YELLOW YELLOW Urine Appearance CLEAR CLEAR Urine pH 7.5 5.0-8.0 Urine Specific [place] 1.011 1.001-1.031 Urine Protein NEGATIVE NEGATIVE mg/dL Urine Glucose (UA) NEGATIVE NEGATIVE mg/dL Urine Ketones NEGATIVE NEGATIVE mg/dL Urine Occult Blood +- (TRACE) H NEGATIVE Urine Nitrate NEGATIVE NEGATIVE Urine Bilirubin NEGATIVE NEGATIVE mg/dL Urine Urobilinogen 0.2 0.2-1.0 mg/dL Urine Leukocyte Esterase NEGATIVE NEGATIVE Suze/uL Urine RBC 0-1 0-1 /HPF Urine WBC 0-1 0-1 /HPF Urine Squamous Epithelial Cells RARE 0-2 /HPF Urine Bacteria None None Seen /HPF Current Medications Medications (Trade) Dose Ordered Sig/Jase Route PRN Reason Start Time Stop Time Status Last Admin Dose Admin Acetaminophen (TYLenol 325MG TAB) 650 mg Q6H PRN PO MILD PAIN (1-3) 12/20/24 14:00 01/19/25 13:59 Acetaminophen (TYLenol 500MG TAB) 500 mg Q6H PRN PO TEMP < 101.1 AND/OR HEADACHE 12/20/24 16:00 01/19/25 15:59 Albuterol (DUOneb) 1 udvial Q6H PRN IH SHORTNESS OF BREATH 12/20/24 14:00 01/19/25 13:59 Albuterol (DUOneb) 1 udvial [id number] IH 12/20/24 15:00 12/20/24 14:32 DC Albuterol (DUOneb) 1 udvial [id number] IH 12/20/24 18:00 01/19/25 17:59 12/21/24 11:02 1 UDVIAL Atorvastatin Calcium (LIPItor 40MG) 40 mg DAILY PO 12/21/24 09:00 01/20/25 08:59 12/21/24 09:56 40 MG Budesonide (Pulmicort 0.5 Mg/2ml) 0.5 mg BIDRESP IH 12/20/24 18:00 01/19/25 17:59 12/21/24 06:28 0.5 MG Diazepam (VALium 5 MG/ML 2 ML SYG) 10 mg Q4H PRN IVP ALCOHOL WITHDRAWAL PROTOCOL 12/20/24 16:00 12/27/24 15:59 Diazepam (VALium 5 MG/ML 2 ML SYG) 20 mg Q4H PRN IVP ALCOHOL WITHDRAWAL PROTOCOL 12/20/24 16:00 12/27/24 15:59 Doxycycline Hyclate 250 ml @ 125 mls/hr BID IV 12/20/24 21:00 12/30/24 20:59 12/21/24 09:51 125 MLS/HR Doxycycline Hyclate 250 ml @ 125 mls/hr Q12H STAT IV 12/20/24 12:14 12/20/24 14:13 DC 12/20/24 12:23 125 MLS/HR Enoxaparin Sodium (Lovenox) 40 mg DAILY SQ 12/21/24 09:00 01/20/25 08:59 12/21/24 09:57 40 MG Folic Acid (FOLic ACID 1 MG TABLET) 1 mg DAILY PO 12/21/24 09:00 12/23/24 09:01 12/21/24 09:51 1 MG Furosemide (LASix 20MG TAB) 20 mg DAILY PO 12/21/24 09:00 12/21/24 11:03 DC Furosemide (LASix 20MG VIAL) 20 mg Q8H IV 12/21/24 11:30 01/20/25 11:29 Guaifenesin/ Dextromethorphan (RobiTUSSin DM 200/20MG 10ML) 10 ml Q6H PRN PO COUGH 12/20/24 14:00 01/19/25 13:59 Home Med (Home Medication) (Pramipexole Di-HCl (Pramipex... HS PO 12/20/24 21:00 01/19/25 20:59 Hydralazine HCl (APRESOLine 20MG INJ) 10 mg Q4H PRN IV ADMINISTER FOR SBP > 160 12/20/24 16:30 12/20/24 16:10 DC Hydralazine HCl (APRESOLine 20MG INJ) 10 mg Q6H PRN IV ADMINISTER FOR SBP > 170 12/20/24 14:00 01/19/25 13:59 Levofloxacin/ Dextrose 100 ml @ 100 mls/hr Q24H IV 12/20/24 12:30 12/20/24 12:38 DC Levothyroxine Sodium (SYNTHroid 100MCG TAB) 100 mcg SYN PO 12/21/24 06:30 01/20/25 06:29 12/21/24 05:37 100 MCG Levothyroxine Sodium (SYNTHroid 75MCG TAB) 75 mcg SYN PO 12/21/24 06:30 01/20/25 06:29 12/21/24 05:37 75 MCG Magnesium Sulfate 50 ml @ 0 mls/hr PROTOCOL IV 12/20/24 14:00 01/19/25 13:59 Meropenem (Merrem 1gm) 1 gm Q12H IVPB 12/20/24 14:00 12/20/24 13:50 DC Meropenem (Merrem 1gm) 1 gm Q8H IVPB 12/20/24 14:00 12/30/24 13:59 12/21/24 05:32 1 GM Methylprednisolone Sodium Succinate (Solu-medROL 40MG) 40 mg Q6H IVP 12/20/24 18:00 01/19/25 17:59 12/21/24 05:33 40 MG Methylprednisolone Sodium Succinate (Solu-medROL 40MG) 60 mg Q6H IVP 12/20/24 18:00 12/20/24 16:09 DC Metoprolol Succinate (TopROL XL) 25 mg DAILY PO 12/21/24 09:00 01/20/25 08:59 12/21/24 09:56 25 MG Montelukast Sodium (SinguLAIR) 10 mg DAILY PO 12/21/24 09:00 12/20/24 17:18 DC Montelukast Sodium (SinguLAIR) 10 mg DAILY PO 12/21/24 09:00 01/20/25 08:59 12/21/24 09:58 10 MG Multivitamins Therapeutic (Multivitamin Tablet) 1 tab DAILY PO 12/21/24 09:00 01/20/25 08:59 12/21/24 09:51 1 TAB Nicotine (Nicoderm) 14 mg DAILY PRN TD nicotine withdrawals 12/20/24 16:30 01/19/25 16:29 Ondansetron HCl (zoFRAN 4MG INJ) 4 mg Q4H PRN IV NAUSEA 12/20/24 16:00 01/19/25 15:59 Ondansetron HCl (zoFRAN 4MG INJ) 4 mg Q6H PRN IVP NAUSEA/VOMITING 12/20/24 14:00 12/20/24 16:02 DC Pantoprazole Sodium (PROTonix 40MG INJ) 40 mg Q24H IVP 12/20/24 14:00 12/21/24 10:09 DC 12/20/24 14:37 40 MG Pantoprazole Sodium (PROTonix 40MG TAB) 40 mg DAILY PO 12/22/24 09:00 01/21/25 08:59 Pharmacy Profile Note (Pharmacy Communication) 1 each ONCE MISC 12/20/24 14:00 12/20/24 13:48 DC Pharmacy Profile Note (Pharmacy Communication) 1 each PROTOCOL PRN MISC ETOH Withdrawal Score changes 12/20/24 16:00 12/27/24 15:59 Potassium Chloride 100 ml @ 50 mls/hr AD PRN IV POTASSIUM PROTOCOL 12/20/24 14:00 01/19/25 13:59 Promethazine HCl (Phenergan) 25 mg Q6H PRN PO NAUSEA 12/20/24 16:00 01/19/25 15:59 Sodium Chloride 1,000 ml @ 50 mls/hr Q20H IV 12/20/24 16:30 12/21/24 08:11 DC 12/20/24 20:10 50 MLS/HR Thiamine HCl (Vitamin B-1) 300 mg DAILY IV 12/21/24 09:00 12/23/24 09:01 12/21/24 09:56 300 MG Trazodone HCl (DesyREL/OlepTRO) 200 mg HS PO 12/20/24 21:00 01/19/25 20:59 12/20/24 20:11 200 MG DIAGNOSTICS / RADIOLOGY: US ABD PATIENT: YEE OTTO MR#: [id number] : 1950 SEX: F AGE: 74 LOCATION: H ORDER 1559 STATUS: ADM IN REPORT#: [id number] SERVICE 1556 REASON: ascites? ORDERING PHYSICIAN: KAY VARGAS PROCEDURE: ABD WALL - US ABD LIMITED/ABD WALL EXAMINATION: ULTRASOUND OF THE ABDOMEN (LIMITED). CLINICAL HISTORY: Pain. COMPARISON: None. TECHNIQUE: Real-time grayscale ultrasound images of the abdomen. FINDINGS: There is no free fluid in the peritoneal cavity in all the fur quadrants. IMPRESSION: No ascites. /[place] DICTATED BY: BOB CHIN MD DATE: 12/21/24814 ELECTRONICALLY SIGNED BY: BOB CHIN MD DATE: 12/21/24814 US VENOUS DOPPLER BILATERAL PATIENT: YEE OTTO MR#: [id number] : 1950 SEX: F AGE: 74 [facility] STATUS: ADM IN REPORT#: [id number] SERVICE 1349 REASON: r/o DVT of the lower extremities ORDERING PHYSICIAN: MALDONADO FLEMING MD PROCEDURE: VENOUS FAY - US VENOUS DOPPLER BILATERAL EXAM: US for Deep Venous Thrombosis, bilateral Lower Extremity. CLINICAL HISTORY: Leg Pain and Swelling TECHNIQUE: Real-time ultrasound scan of the veins of the bilateral lower extremity with color Doppler flow, spectral waveform analysis and compression. COMPARISON: None provided. FINDINGS: DEEP VEINS: The common femoral, superficial femoral, and popliteal veins are echolucent and compressible. There is normal color Doppler flow throughout. The visualized calf veins appear patent. SOFT TISSUES: No popliteal fossa cyst or other abnormalities. IMPRESSION: 1. No evidence of deep venous thrombosis in bilateral lower extremities. /[place] DICTATED BY: RITO DOUGLAS MD DATE: 12/20/241610 ELECTRONICALLY SIGNED BY: RITO DOUGLAS MD DATE: 12/20/241610 ECHO 2-D COMPLETE PATIENT: YEE OTTO MR#: [id number] : 1950 SEX: F AGE: 74 LOCATION: [facility] ORDER 1351 [facility] REPORT#: [id number] SERVICE 1349 REASON: assess for heart failure exacebration, pulmn HTN ORDERING PHYSICIAN: MALDONADO FLEMING MD PROCEDURE: ECHO CMP - ECHO 2-D COMPLETE APPROVED REPORT EXAM: Two-dimensional and M-mode echocardiogram with Doppler and color Doppler. INDICATION ICD: Assess for heart failure exacebration and pumonary hypertension 2D Dimensions RVDd 4.3 cm LVEF(%) 67.2 (>50%) LVED Vol(simp.) 133.2 mL IVSd 1.2 (0.7-1.1cm) FS(%) 38 % LVES Vol(simp.) 50.4 mL LVDd 5.5 (3.8-5.6cm) LA (2D) 4.0 (1.6-4.0cm) LVEF(%, simp.) 62 % PWd 0.9 (0.7-1.1cm) Ao Root(2D) 3.0 (2.0-3.7cm) LA ESV INDEX (BP) 47.61 mL/m2 LVDs 3.4 (2.5-4.0cm) LVOT diam 2.2 (1.8-2.4cm) IVC diam 3.4 cm Aortic Valve AoV Vmax 1.5 m/s Ao Peak GR 9.4 mmHg LVOT Vmax 1.5 m/s AoV VTI 0.4 m Ao Mean GR 4.8 mmHg LVOT VTI 0.34 m ELLY (VMAX) 3.78 cm2 ELLY (VTI) 3.3 cm2 Mitral Valve MV E Vmax 127.4 cm/s DECEL Time 169 ms MV A Vmax 104.1 cm/s P 1/2 T 80 ms E/A ratio 1.2 MVA (PHT) 2.8 cm2 TDI E/E' Medial 15.6 E/E' Lateral 14.4 Medial E' Peak V 8.18 cm/s Lateral E' Peak V 8.86 cm/s Pulmonary Valve PV Vmax 1.6 m/s PV VTI 0.36 m PV Mean GR 4.4 mmHg PV Peak GR 10.7 mmHg Tricuspid Valve RAP (EST) 15 mmHg RVSP 15.0 mmHg Left Ventricle The left ventricle is normal size. There is mild left ventricular wall thickness. LVEF is 60-65%. Stage II, diastolic dysfunction. Right Ventricle The right ventricle is mildly dilated. The right ventricular systolic function is normal. Atria The left atrium is moderately dilated. The right atrium is moderately dilated. Aortic Valve The aortic valve is normal in structure. No aortic regurgitation is present. There is no aortic valvular stenosis. Mitral Valve The mitral valve is normal in structure. There is trace of mitral valve reg urgitation noted. There is no mitral valve stenosis. Tricuspid Valve The tricuspid valve is normal in structure. There is trace of tricuspid valve regurgitation noted. Pulmonic Valve The pulmonary valve is normal in structure. There is no pulmonic valvular regurgitation. Great Vessels The aortic root is normal in size. IVC is dilated and collapses <50% with inspiration. Pericardium There is no pericardial effusion. Other Information Quality : Adequate Conclusion The left ventricle is normal size. LVEF is 60-65%. Stage II, diastolic dysfunction. The right ventricle is mildly dilated. The right ventricular systolic function is normal. The left atrium is moderately dilated. The right atrium is moderately dilated. No valvular pathology. There is no pericardial effusion. DICTATED BY: XAVIER CRENSHAW MD DATE: 12/20/24 1431 ELECTRONICALLY SIGNED BY: XAVIER CRENSHAW MD DATE: 12/20/24 1243 CHEST X-RAY PATIENT: YEE OTTO MR#: [id number] : 1950 SEX: F AGE: 74 LOCATION: [facility] ORDER 1136 STATUS: REG ER REPORT#: [id number] SERVICE 1134 REASON: SOB ORDERING PHYSICIAN: CYN GARLAND MD PROCEDURE: CXR1VW - CHEST 1VW EXAM: CR Chest, 1 View. CLINICAL HISTORY: SOB COMPARISON: Radiograph dated June 17, 2023 FINDINGS: There is bilateral perihilar and bibasilar airspace disease that may reflect pulmonary edema. No pleural effusion or pneumothorax. Heart size is stable. Pulmonary vascular congestion. IMPRESSION: 1. Bilateral perihilar and bibasilar airspace disease, possibly representing pulmonary edema with pulmonary vascular congestion /[place] DICTATED BY: MARA GARZA Jr., MD DATE: 12/20/241401 ELECTRONICALLY SIGNED BY: MARA GARZA Jr., MD DATE: 12/20/241401 ASSESSMENT: Acute on severe chronic COPD exacerbation, POA Suspected hx of pulmonary fibrosis, POA Acute on chronic hypoxemic respiratory failure, severe, POA Acute on chronic hypercapnic respiratory failure, POA Atypical chest pain, POA Suspected developing multifocal community-acquired pneumonia, POA History of COPD, POA History of pulmonary hypertension, POA History of chronic hypoxemic respiratory failure on supplemental O2 therapy POA Hypertension, POA Hyperlipidemia, POA Morbid obesity, POA History of penicillin allergy, POA PLAN: Acute on severe chronic COPD exacerbation, POA: * Continue BiPAP with the AVAPS. Settings- AVAPS T-max 25, P min 12, tidal volume 500, respiratory rate of 20, FiO2 of 40% * Chest x-ray (12/20/2024) showed bilateral perihilar and bibasilar infiltrates. * ABG (12/21/24) - pH of 7.27 pCO2 of 79 PO2 of 89.5 and bicarb of 35.8. * Keep NPO, NS at 50 mL/hour due to NPO status DC once patient is eating. * Continue Singulair 10 mg daily * Continue inhaled corticosteroids (Pulmicort) * Continue solumedrol (methylprednisolone) 40mg * Maintain oxygen saturation above 88% with supplemental oxygen as indicated. * Influenza A and B negative, COVID-19 negative, * DuoNebs and CPT as needed * Continue IV meropenem and doxycycline, pending respiratory culture and sensitivity results. Atypical chest pain, POA: * Cardiology was consulted * Atypical chest pain attributed to acute on chronic grade II diastolic dysfunction and COPD exacerbation. * Cardiac biomarkers (troponin, BNP) negative; ECG without ischemic changes. * Continue cardiac monitoring and consider high-resolution CT chest when stable to further evaluate dyspnea. * Echocardiogram shows stage II diastolic dysfunction; initiate IV furosemide 20 mg q8h for volume management as per cardiology recommendation. Suspected developing multifocal community-acquired pneumonia, POA: * Continue empiric broad-spectrum antibiotics:IV meropenem (day2) and doxycycline (day2), pending respiratory culture and sensitivity results. * Ordered respiratory cultures, gram stain, and Mycoplasma antibody testing, awaiting results. * Chest x-ray showed bilateral perihilar and bibasilar infiltrates. Acute on chronic hypoxemic and hypercapnic respiratory failure POA: * Continue BiPAP with the AVAPS. Settings- AVAPS T-max 25, P min 12, tidal volume 500, respiratory rate of 20, FiO2 of 40% * Will monitor ABG serially. * Continue Solu-Medrol 40 mg q.6 hours IV push and wean as tolerated * Continue Singulair 10 mg daily * Continue inhaled corticosteroids (Pulmicort) Hyperlipidemia, POA: * Will continue atorvastatin 40mg Hypertension, POA * Will continue metoprolol Supportive measures * WiIl monitor labs daily * On lovenox 40mg for DVT prophylaxis * Gi PPX with protonix due to steroids ATTESTATION BY PHYSICIAN I have seen and examined the patient. I reviewed the documentation, medical decision making, and treatment plan as noted by the resident provider above. I agree with the findings and plan of care. RHONDA AGARWAL MD, SHAJI MD Dec 21, 2024 14:44
[2024-12-21] MEDS: Solu-medROL 40MG VIAL IVP SCH (22:15)
[2024-12-22] VITALS (30 sets, daily range): BP systolic 107–162; BP diastolic 44–85; PULSE 56–77; RESP 16–82; TEMP 97.6–98.6; O2SAT 91–96
[2024-12-22 03:05] LABS: ABG BASE EXCESS 11.7 mmol/L (-2.0-3.0); ABG HCO3 39.0 mmol/L (21.0-28.0); ABG OXYGEN SATURATION 75.7 % (94.0-98.0); ABG PCO2 62 mmHg (32-45); ABG PH 7.414 (7.350-7.450); CARBON MONOXIDE 1.7 % (0.5-1.5); DEVICE COMMENT RN ,RR; PO2, ARTERIAL BG < 45.0 mmHg (83.0-108.0); TEMPERATURE, CELSIUS BG 37.0 CELSIUS (35.5-37.0); VENT MODE, BG NC (ROOM AIR)
[2024-12-22 04:35] LABS: IMMATURE GRANULOCYTE ABSOLUTE 0.07 K/uL (0-1); NUCLEATED RED BLOOD CELLS 0.0 % (0.0-0.19); PLATELET COUNT (AUTO) 142 K/uL (130-400); RED BLOOD CELL COUNT(AUTO) 3.85 MIL/uL (4.00-5.50); RED CELL DISTRIBUTION WIDTH 12.7 % (11.0-15.5); WHITE BLOOD COUNT (AUTO) 7.0 K/uL (4.8-10.8)
[2024-12-22 04:58] LABS: ASPARTATE AMINOTRANSFERASE 19.0 U/L (10-37); CREATININE 0.6 mg/dL (0.5-1.0); GLOMERULAR FILTR. RATE CALC 95.0 mL/min (>90); GLUCOSE,RANDOM 157.0 mg/dL (70-105); SODIUM SERUM 141.0 mmol/L (136-145); TOTAL PROTEIN, SERUM 6.4 g/dL (6.0-8.3); UREA NITROGEN, BLOOD 11.0 mg/dL (7-18)
[2024-12-22] MEDS: NICOTINE 14 MG/ 24 HR PATCH TD PRN (06:29)
--- NOTE | 2024-12-22 07:04 | HMCIMG ---
EXAM: CR Chest, single view. CLINICAL HISTORY: Respiratory failure. COMPARISON: Prior chest radiograph dated December 21, 2024 FINDINGS: Moderate cardiomegaly with bilateral pulmonary congestion. Patchy ill-defined infiltrates in the lingula and left lower lobe. Mild left-sided pleural effusion. No evidence of pneumothorax. No acute osseous abnormality. IMPRESSION: Moderate cardiomegaly with bilateral pulmonary congestion. Patchy ill-defined infiltrates in the lingula and left lower lobe. Mild left-sided pleural effusion. No evidence of pneumothorax. Compared to the prior study, there is no significant interval change. /[place]
--- NOTE | 2024-12-22 08:03 | PN ---
[facility] CARDIOLOGY PROGRESS NOTE Date Patient Seen: Dec 22, 2024 Time of Visit: 08:02 Interval History: [ CXR with improvement, Urine output 4.2 L/24 hours] Physical Examination: GENERAL: [No acute distress.] HEAD: [Normal with no signs of head trauma.] EYES: [PERRLA, EOMI, conjunctiva and sclera normal.] ENT: [Hearing grossly intact, normal oropharynx.] NECK: [Supple without JVD. There is no tenderness, lymphadenopathy, or masses. No thyromegaly. Normal carotid upstrokes without bruits.] LUNGS: [Clear breath sounds bilaterally. There are right basilar rales one third of the way up the chest. No wheezes, or rhonchi.] HEART: [Normal rate and rhythm. Normal S1 and S2 without mumurs, gallop or rub.] VASC: [Peripheral pulses +2 bilaterally.] ABD: [Bowel sounds normal, soft, nontender, no masses, no organomegaly. No audible bruits.] : [Not examined] LYMPH: [No lymphadenopathy noted.] EXT: [No clubbing, cyanosis or edema.] SKIN: [No rashes or lesions noted.] NEURO: [Awake, alert, and oriented x3. No focal sensory or strength deficits noted.] Laboratory: [ ] Hematology Labs: Test 12/22/24 04:10 12/20/24 11:46 12/20/24 11:36 Range/Units White Blood Count 7.0 # 4.8-10.8 K/uL Red Blood Count 3.85 L 4.00-5.50 MIL/uL Hemoglobin 13.5 12.0-16.0 g/dL Hematocrit 41.9 36-48 % Mean Corpuscular Volume 108.8 H 79-99 fL Mean Corpuscular Hemoglobin 35.1 H 27.0-33.0 pg Mean Corpuscular Hemoglobin Concent 32.2 32.0-36.0 g/dL Red Cell Distribution Width 12.7 11.0-15.5 % Platelet Count 142 130-400 K/uL Mean Platelet Volume 9.7 7.5-10.5 fL Immature Granulocyte % (Auto) 1.0 0-1 % Neutrophils (%) (Auto) 85.7 H 40.0-77.0 % Lymphocytes (%) (Auto) 8.8 L 21.0-51.0 % Monocytes (%) (Auto) 4.4 3.0-13.0 % Eosinophils (%) (Auto) 0.0 0.0-8.0 % Basophils (%) (Auto) 0.1 0.0-5.0 % Neutrophils # (Auto) 6.0 1.8-7.7 K/uL Lymphocytes # (Auto) 0.6 L 1.0-4.8 K/uL Monocytes # (Auto) 0.3 0.1-1.0 K/uL Eosinophils # (Auto) 0.00 0.00-0.70 K/uL Basophils # (Auto) 0.01 0.00-0.20 K/uL Absolute Immature Granulocyte (auto 0.07 0-1 K/uL Nucleated Red Blood Cells 0.0 0.0-0.19 % White Cell Morphology Comment See comments Erythrocyte Sedimentation Rate 37 H 0-30 MM/HR Red Blood Cell Morphology See comments Chemistry Labs: Test 12/22/24 04:10 12/21/24 04:49 12/20/24 17:47 12/20/24 11:46 Range/Units Sodium Level 141 136-145 mmol/L Potassium Level 4.0 3.5-5.1 mmol/L Chloride Level 98 L 101-111 mmol/L Carbon Dioxide Level 37 H 21-32 mmol/L Blood Urea Nitrogen 11 7-18 mg/dL Creatinine 0.6 0.5-1.0 mg/dL Glomerular Filtration Rate Calc 95 >90 mL/min Random Glucose 157 H 70-105 mg/dL Total Calcium 8.3 L 8.5-10.1 mg/dL Magnesium Level 2.20 1.80-2.40 mg/dL Total Bilirubin 0.5 0.2-1.0 mg/dL Aspartate Amino Transf (AST/SGOT) 19 10-37 U/L Alanine Aminotransferase (ALT/SGPT) 22 12-78 U/L Alkaline Phosphatase 112 50-136 U/L Total Protein 6.4 6.0-8.3 g/dL Albumin 3.1 L 3.5-5.0 g/dL Phosphorus Level 3.6 2.5-4.9 mg/dL Total Creatine Kinase 38 21-232 U/L Troponin I High Sensitivity 9.9 4-50 ng/L B-Type Natriuretic Peptide 62 0-100 pg/mL Test 12/20/24 11:36 Range/Units Direct Bilirubin 0.2 0.0-0.3 mg/dL C-Reactive Protein, Quantitative 10.90 H 0.5-3.0 mg/L Procalcitonin < 0.05 L 0.05-0.5 ng/mL Coagulation Labs: Test 12/20/24 14:23 Range/Units Prothrombin Time 10.2 9.6-11.6 SEC Prothromb Time International Ratio 0.96 0.85-1.15 Activated Partial Thromboplast Time 26.8 26.3-35.5 SEC D-Dimer Quantitative (PE/DVT) 882 *H 0-500 ng/mL Diagnostics / Radiology: [Copy/Paste Echos/Imaging Report here] Impression and Plan: [COPD exacerbation Moderate Pulmonary HTN atypical chest pain Acute on chronic grade II diastolic dysfunction ] Plan: [ #atypical chest pain due to Acute on chronic grade II diastolic dysfunction and COPD exac -Trop and BNP neg -ECG no ST-T changes -given worsening dyspnea, recommend high resolution CT chest when she is stable -2d echo stage II diastolic dysfunction, otherwise normal, changed po lasix to IV 20 mg q8h, continue IV diuresis an additional day ] XAVIER ALBRIGHT MD Dec 22, 2024 08:03
--- NOTE | 2024-12-22 08:10 | PN ---
[facility] PROGRESS NOTE Date Patient Seen: Dec 22, 2024 Time of Visit: 08:10 Supervising Physician: Tyler Dodson MD Primary Care Physician: KASSIDY SEAMAN Outpatient Specialists: [ ] Inpatient Consults: CRISTINA REYNOSO, PROBLEM LIST: Acute on chronic hypoxemic and hypercapnic respiratory failure POA REQUIRING NIV Acute respiratory acidosis 2/2 to combination of OHS/COPD exacerbation, POA Left upper lobe pneumoniae POA Trace Bilateral pleural effusions Main pulmonary artery appears mildly dilated measuring 3.1 cm suspected pulmonary hypertension on CT Mild hypoalbuminemia POA Hyperglycemia POA Elevated D-dimer negative for DVT, Well's score for PE 0 point Abdominal distention r/o ascites Essential hypertension Obesity BMI of 39.1 Current smoker half pack a day Current ETOH 3 glasses of wine a day, @ risk for alcohol withdrawals INTERVAL HISTORY: Patient is awake alert and oriented x3. Currently on3 L via nasal cannula saturating 96%. No major overnight events. She tolerated BiPAP machine overnight. Patient is hemodynamically stable and afebrile. She had good urine output yesterday total of 4.7 L out. Per Cardiology recommendations continue diuresis one more day. Mixed venous ABG with a pH of 7.41 pCO2 of 62, PO2 of<45, bicarb of 39.0 Patient is stable to downgrade to PCCU. Continue BiPAP at HS. She will need follow up with repair electric motor assembler of choice which is post DC. I have recommended NIV on DC. As per patient she was previously on NIV at home prescribed at [facility] pulmonology. She reports switching repair electric motor assembler to Dr Saavedra in [place] and he took her off of it. She wants to follow up with him before and prescription for NIV. REVIEW OF SYSTEMS: 12 point ROS reviewed with patient. Pertinent positives mentioned above. Otherwise negative. PHYSICAL EXAM: GENERAL: alert, weak, awake oriented x 3 HEENT: EOMI, Sclera non icteric, moist mucosa NECK: Supple, no JVD, trachea midline LUNGS: clear breath sounds bilaterally. No wheezes HEART: Regular rate and rhythm. Normal S1 and S2, without murmurs ABD: Abdomen distended firm, nontender. Bowel sounds present EXT: No clubbing cyanosis. trace edema to BLE NEURO: Alert and oriented to person, follows commands Vital Signs (last 8hr) Date Time Temp Pulse Resp B/P (MAP) Pulse Ox O2 Delivery O2 Flow Rate FiO2 12/22/24 06:41 56 28 12/22/24 06:40 62 22 162/80 95 Nasal Cannula 3.0 12/22/24 06:40 58 18 N/Cannula Low lpm 3.0 32 12/22/24 05:40 56 24 148/74 92 Nasal Cannula 3.0 12/22/24 05:33 97.9 64 30 119/57 91 BIPAP 12/22/24 04:37 91 Bi-PAP+ 3 50 12/22/24 03:23 56 22 30 12/22/24 02:41 67 31 120/64 91 Nasal Cannula 3.0 12/22/24 02:07 68 26 137/72 93 Nasal Cannula 3.0 12/22/24 00:40 97.5 64 44 107/44 89 BIPAP LABS: Hematology Labs: Test 12/22/24 04:10 12/20/24 11:46 12/20/24 11:36 Range/Units White Blood Count 7.0 # 4.8-10.8 K/uL Red Blood Count 3.85 L 4.00-5.50 MIL/uL Hemoglobin 13.5 12.0-16.0 g/dL Hematocrit 41.9 36-48 % Mean Corpuscular Volume 108.8 H 79-99 fL Mean Corpuscular Hemoglobin 35.1 H 27.0-33.0 pg Mean Corpuscular Hemoglobin Concent 32.2 32.0-36.0 g/dL Red Cell Distribution Width 12.7 11.0-15.5 % Platelet Count 142 130-400 K/uL Mean Platelet Volume 9.7 7.5-10.5 fL Immature Granulocyte % (Auto) 1.0 0-1 % Neutrophils (%) (Auto) 85.7 H 40.0-77.0 % Lymphocytes (%) (Auto) 8.8 L 21.0-51.0 % Monocytes (%) (Auto) 4.4 3.0-13.0 % Eosinophils (%) (Auto) 0.0 0.0-8.0 % Basophils (%) (Auto) 0.1 0.0-5.0 % Neutrophils # (Auto) 6.0 1.8-7.7 K/uL Lymphocytes # (Auto) 0.6 L 1.0-4.8 K/uL Monocytes # (Auto) 0.3 0.1-1.0 K/uL Eosinophils # (Auto) 0.00 0.00-0.70 K/uL Basophils # (Auto) 0.01 0.00-0.20 K/uL Absolute Immature Granulocyte (auto 0.07 0-1 K/uL Nucleated Red Blood Cells 0.0 0.0-0.19 % White Cell Morphology Comment See comments Erythrocyte Sedimentation Rate 37 H 0-30 MM/HR Red Blood Cell Morphology See comments Chemistry Labs: Test 12/22/24 04:10 12/21/24 04:49 12/20/24 17:47 12/20/24 11:46 Range/Units Sodium Level 141 136-145 mmol/L Potassium Level 4.0 3.5-5.1 mmol/L Chloride Level 98 L 101-111 mmol/L Carbon Dioxide Level 37 H 21-32 mmol/L Blood Urea Nitrogen 11 7-18 mg/dL Creatinine 0.6 0.5-1.0 mg/dL Glomerular Filtration Rate Calc 95 >90 mL/min Random Glucose 157 H 70-105 mg/dL Total Calcium 8.3 L 8.5-10.1 mg/dL Magnesium Level 2.20 1.80-2.40 mg/dL Total Bilirubin 0.5 0.2-1.0 mg/dL Aspartate Amino Transf (AST/SGOT) 19 10-37 U/L Alanine Aminotransferase (ALT/SGPT) 22 12-78 U/L Alkaline Phosphatase 112 50-136 U/L Total Protein 6.4 6.0-8.3 g/dL Albumin 3.1 L 3.5-5.0 g/dL Phosphorus Level 3.6 2.5-4.9 mg/dL Total Creatine Kinase 38 21-232 U/L Troponin I High Sensitivity 9.9 4-50 ng/L B-Type Natriuretic Peptide 62 0-100 pg/mL Test 12/20/24 11:36 Range/Units Direct Bilirubin 0.2 0.0-0.3 mg/dL C-Reactive Protein, Quantitative 10.90 H 0.5-3.0 mg/L Procalcitonin < 0.05 L 0.05-0.5 ng/mL Coagulation Labs: Test 12/20/24 14:23 Range/Units Prothrombin Time 10.2 9.6-11.6 SEC Prothromb Time International Ratio 0.96 0.85-1.15 Activated Partial Thromboplast Time 26.8 26.3-35.5 SEC D-Dimer Quantitative (PE/DVT) 882 *H 0-500 ng/mL DIAGNOSTICS / RADIOLOGY RESULTS: [[facility] [address] [place] [address] IMAGING REPORT Signed PATIENT: YEE OTTO MR#: [id number] : 1950 SEX: F AGE: 74 LOCATION: 2BH ORDER 99 STATUS: ADM IN REPORT#: [id number] SERVICE 06 REASON: resp failure ORDERING PHYSICIAN: KAY VARGAS PROCEDURE: CXR1VW - CHEST 1VW EXAM: CR Chest, single view. CLINICAL HISTORY: Respiratory failure. COMPARISON: Prior chest radiograph dated December 21, 2024 FINDINGS: Moderate cardiomegaly with bilateral pulmonary congestion. Patchy ill-defined infiltrates in the lingula and left lower lobe. Mild left-sided pleural effusion. No evidence of pneumothorax. No acute osseous abnormality. IMPRESSION: Moderate cardiomegaly with bilateral pulmonary congestion. Patchy ill-defined infiltrates in the lingula and left lower lobe. Mild left-sided pleural effusion. No evidence of pneumothorax. Compared to the prior study, there is no significant interval change. /Peytona DICTATED BY: MARA GARZA Jr., MD DATE: 12/22/24802 ELECTRONICALLY SIGNED BY: MARA GARZA Jr., MD DATE: 12/22/24802 ] PLAN wean steorids as possible continue diuretics per cardiology Continue IV antibiotics Given exposure of smoking for many years, patient has a developed COPD with exacerbation. Patient to follow up as outpatient at pulmonary clinic in two weeks for PFTs, we will continue with nebulizer treatments with atrovent, Pulmicort, steroids. Singulair 10 mg daily Follow respiratory cultures Maintain O2 sats above 88% Gi PPX with protonix due to steroids smoking cessation Continue patch PRN Influenza a and B negative, COVID-19 negative, Chest x-ray in the morning AVAPS T-max 25, P min 12, tidal volume 500, respiratory rate of 20, FiO2 of 40%, PRN and HS. NEURO: Minimize central acting medications as possible. Fall Precautions. Well lighted room through the day and minimize interruptions through the night to prevent acute delirium. CIWA protocol with diazepam PULMONARY: Supplemental 02 as needed Titrate Fio2 to keep Spo2 > or = 90% DuoNebs and CPT as needed IS hourly while awake for pulmonary hygiene Out of bed to chair as tolerated Follow ABG Chest x-ray in a.m. CARDIOVASCULAR: Follow hemodynamics. Titrate vasopressor to keep MAP >65 or systolic blood pressure >95mmHg Drips: None LINES: PIV GI & NUTRITION: Continue nutritional support Aspirations precautions Prokinetic agents and laxatives as needed KIDNEYS & ELECTROLYTES: Strict monitoring of intake and output Daily weights Avoid nephrotoxic agents Monitor electrolytes and replace as needed Goal urine output of 30mL/hr or 0.5mL/kg/hr Urine output: [ ] Fluid Balance: [ ] ENDOCRINE: Maintain blood glucose between 100-180 at all times. Insulin sliding scale for blood glucose management INFECTIOUS DISEASE: Trend temperature. Hinton-culture if febrile. Micro: [ ] Respiratory culture Antibiotics: [ ] Per primary team on meropenem and doxycycline HEMATOLOGY & COAGULATION: Monitor H&H. Keep Hgb > 7 Transfuse 1 unit of PRBC for Hgb < 7 Transfuse 1 pack of platelets of platelets < 20, 000 Watch for any signs and symptoms of bleeding SKIN: Pressure ulcer prevention per facility protocol Rehab: PT/OT Prophylaxis: GI: [Protonix ] DVT: [ Lovenox] Code Status: Full Resuscitation Disposition: pccu Other: Critical care time 35 min ATTESTATION BY PHYSICIAN I attest that I reviewed and discussed the case with the Physician Nutritionalist as well as agree with the Physician Nutritionalist's findings, plans of care, and documentation above. Tyler Hamilton MD, NELLY J AGACN Dec 22, 2024 08:10 TYLER HAMILTON MD Dec 23, 2024 07:29
[2024-12-22] MEDS ORDERED: PROMETHAZINE HCL 25 MG TABLET PO PRN (08:30)
[2024-12-22] MEDS ORDERED: PHARMACY COMMUNICATION MISC PRN (08:30)
[2024-12-22] MEDS: MULTIVITAMIN TABLET PO SCH (08:39)
[2024-12-22] MEDS: THIAMINE HCL 100 MG/ML 2ML VIAL IV SCH (08:40)
[2024-12-22] MEDS: amLODIPine 2.5 MG TAB PO SCH (08:43)
--- NOTE | 2024-12-22 14:21 | PN ---
[facility] PROGRESS NOTE Date of Service: Dec 22, 2024 Time of Service: 14:04 SUBJECTIVE: HISTORY OF PRESENT ILLNESS: Date of service: 12/22/2024, patient was seen in ER room 13, patient is critically ill This is a 74-year-old female with underlying history of COPD, suspected pulmonary fibrosis, chronic hypercapnic respiratory failure, obesity, chronic hypoxemic respiratory failure on supplemental O2 therapy as outpatient, hypertension, hyperlipidemia, hypothyroidism who presented to the ER for further evaluation of progressive shortness of breath. Patient states that she has been ill for the past one week and has been having cough, wheezing and congestion. She is short of breath with minimal activities. She has been having subjective chills at home. She has also been having chest pain worsened with coughing. She denies any recent falls or syncopal episodes. She is followed by Dr. Diaz with pulmonology as outpatient. She is followed by Dr. Crenshaw with Cardiology as outpatient. She denies any previous history of [place]. denies previous history of congestive heart failure. Patient has a prior long-time smoking history. She recently was given a course of outpatient antibiotics with no significant improvement of symptoms. On presentation to the hospital, patient was noted to be afebrile with T-max of 98.4 F, heart rate of 66, blood pressure 128/58. Patient was noted to be si gnificantly hypoxemic with O2 saturations of 78 % on 2 L of O2 supplementation by nasal cannula. Labs on presentation showed WBC count of 8300, hemoglobin of 13.7, platelet count of 025231. BMP showed sodium of 143, potassium 4.7, BUN of nine, creatinine 0.6, magnesium of 2.10. Chest x-ray showed bilateral perihilar and bibasilar infiltrates. Patient will be admitted for further management of severe COPD exacerbation with acute on chronic hypercapnic and hypoxemic respiratory failure. Patient will be initiated on noninvasive ventilation with BiPAP, she will receive broad-spectrum antibiotics. Consultation with critical Care will be requested. Patient with also signs of atypical chest pain, D-dimer we will be obtained and if significantly elevated, we will consider CT PE protocol to rule out PE, we will have Cardiology follow this patient. Patient states that she wants to have more time and think about her code status with regards to intubation and resuscitation status tonight, she will let us know tomorrow about her code status. I have told her in case of emergency, she will need to urgently decide, she still told me she wants to think with regards to code status. She is able to tell me her name and and answer questions appropriately and able to make decisions. SUBJECTIVE: 12/21/2024: Patient was seen and examined in room 210. Patient was on noninvasive ventilation upon entering the room. Patient reports having history of COPD for a long time, and started feeling short of breath when she walked a few steps. Patient presented to the ER because of progressive symptoms and subjective chills at home. Patient denies fever, chills, sputum production, burning sensation in urine today. Patient reports that she hasn't eaten since Thursday and was hungry today. O2 flow rate - 3.0, FiO2-32. ABG today - ph-7.273, pco2- 79, po2- 89.5, HCO3- 35.8. Labs today-WBC-5.4, ESR-37, procal-<0.05 12/22/24: Patient was seen and examined in room 210. Patient was on nasal cannula with 3L of oxygen flow. Patient reports feeling better compared to prior day and was happy because she got to eat food. Patient reports persistent cough, shortness of breath but has improved compared to prior day. Patient denies fever, chills, sputum production, burning sensation in urine today. ABG today - ph-7.4, pco2- 62, po2- <45, HCO3-39. Labs today-WBC-7.0, ESR-37, procal-<0.05 REVIEW OF SYSTEMS CONSTITUTIONAL: Denies fevers, chills, or night sweats. No unintentional weight loss reported. NEUROLOGICAL: Denies headache, amaurosis fugax, motor weakness, sensory deficit, vertigo/spinning sensation, gait abnormalities, or tremors. ENT: No hearing loss, otalgia, otorrhea, rhinitis, rhinorrhea, hoarseness, or sore throat. CARDIOVASCULAR: Denies any exertional angina, dyspnea on exertion, orthopnea, paroxysmal nocturnal dyspnea, palpitations, life-threatening arrhythmias, claudication. PULMONARY: Some breath, cough, congestion, wheezing ongoing for about one week, reports having history of COPD, reports being on O2 therapy as outpatient SLEEP: Denies morning headaches, daytime somnolence or napping. Denies difficulty falling asleep, staying asleep, waking from sleep. Denies knowledge of snoring. GASTROINTESTINAL: Denies any type of dysphagia to either liquids or solids. Denies nausea, vomiting, pyrosis, early satiety, abdominal pain, diarrhea, constipation, or changes in stool consistency or caliber. Denies coffee-ground emesis, hematemesis, hematochezia, or melanotic stools. GENITOURINARY: Denies frequency, urgency, nocturia, hematuria or incontinence (Storage/Irritative symptoms.) Low urinary stream, straining to void, urinary intermittency or hesitancy, splitting of the voiding stream, terminal dribbling. ENDOCRINOLOGIC: Denies polyuria, polydipsia, polyphagia or heat/cold intolerances. HEMATOLOGIC: Denies thrombophilia/previous clots, or coagulopathy/bleeding disorders. ONCOLOGIC: Denies personal history of malignancy. DERMATOLOGIC: Denies rashes or pruritus. PSYCHIATRIC: Denies any suicidal or homicidal ideation. Denies hallucinations. PHYSICAL EXAM GENERAL APPEARANCE: The patient is awake, alert, and oriented, in no acute cardiopulmonary distress. NEUROLOGICAL: Cranial nerves II-XII grossly intact. Motor is 5/5 in bilateral upper and lower extremities proximal to distal. No sensory deficits. HEENT: Face is symmetric. Pupils are equal and reactive. Extraocular movements are intact. NECK: Supple. No JVD. No thyromegaly. No submental, submandibular, pre- /postauricular, occipital or supraclavicular lymphadenopathy. CHEST: Normal chest expansion. No Telemetry. LUNGS: Crackles noted of bilateral lung bases with expiratory wheezing CARDIOVASCULAR: Regular. S1 and S2 normal. No appreciable rubs, murmurs or gallops. ABDOMEN: Soft, nontender, and nondistended. There is no rebound, voluntary guarding, or rigidity. : Deferred. No Draper. EXTREMITIES: Trace edema noted of bilateral lower extremity SKIN: No skin breakdown. Vital Signs (last 8hr) Date Time Temp Pulse Resp B/P (MAP) Pulse Ox O2 Delivery O2 Flow Rate FiO2 12/22/24 12:00 98.2 72 34 129/61 92 Nasal Cannula 3.0 12/22/24 11:06 72 28 12/22/24 11:06 72 20 N/Cannula Low lpm 3.0 32 12/22/24 08:00 98.6 77 24 156/64 93 Nasal Cannula 3.0 12/22/24 08:00 93 Nasal Cannula* 3 50 Bi-PAP+ 12/22/24 06:41 56 28 12/22/24 06:40 62 22 162/80 95 Nasal Cannula 3.0 12/22/24 06:40 58 18 N/Cannula Low lpm 3.0 32 LABS: Laboratory: Test 12/22/24 04:10 12/22/24 03:03 12/21/24 04:49 12/21/24 04:06 Range/Units White Blood Count 7.0 # 4.8-10.8 K/uL Red Blood Count 3.85 L 4.00-5.50 MIL/uL Hemoglobin 13.5 12.0-16.0 g/dL Hematocrit 41.9 36-48 % Mean Corpuscular Volume 108.8 H 79-99 fL Mean Corpuscular Hemoglobin 35.1 H 27.0-33.0 pg Mean Corpuscular Hemoglobin Concent 32.2 32.0-36.0 g/dL Red Cell Distribution Width 12.7 11.0-15.5 % Platelet Count 142 130-400 K/uL Mean Platelet Volume 9.7 7.5-10.5 fL Immature Granulocyte % (Auto) 1.0 0-1 % Neutrophils (%) (Auto) 85.7 H 40.0-77.0 % Lymphocytes (%) (Auto) 8.8 L 21.0-51.0 % Monocytes (%) (Auto) 4.4 3.0-13.0 % Eosinophils (%) (Auto) 0.0 0.0-8.0 % Basophils (%) (Auto) 0.1 0.0-5.0 % Neutrophils # (Auto) 6.0 1.8-7.7 K/uL Lymphocytes # (Auto) 0.6 L 1.0-4.8 K/uL Monocytes # (Auto) 0.3 0.1-1.0 K/uL Eosinophils # (Auto) 0.00 0.00-0.70 K/uL Basophils # (Auto) 0.01 0.00-0.20 K/uL Absolute Immature Granulocyte (auto 0.07 0-1 K/uL Nucleated Red Blood Cells 0.0 0.0-0.19 % White Cell Morphology Comment See comments Sodium Level 141 136-145 mmol/L Potassium Level 4.0 3.5-5.1 mmol/L Chloride Level 98 L 101-111 mmol/L Carbon Dioxide Level 37 H 21-32 mmol/L Blood Urea Nitrogen 11 7-18 mg/dL Creatinine 0.6 0.5-1.0 mg/dL Glomerular Filtration Rate Calc 95 >90 mL/min Random Glucose 157 H 70-105 mg/dL Total Calcium 8.3 L 8.5-10.1 mg/dL Magnesium Level 2.20 1.80-2.40 mg/dL Total Bilirubin 0.5 0.2-1.0 mg/dL Aspartate Amino Transf (AST/SGOT) 19 10-37 U/L Alanine Aminotransferase (ALT/SGPT) 22 12-78 U/L Alkaline Phosphatase 112 50-136 U/L Total Protein 6.4 6.0-8.3 g/dL Albumin 3.1 L 3.5-5.0 g/dL Blood Gas Specimen Type Arterial Arterial Blood pH 7.414 7.350-7.450 Arterial Blood Partial Pressure CO2 62 *H 32-45 mmHg Arterial Blood Partial Pressure O2 < 45.0 *L 83.0-108.0 mmHg Arterial Blood HCO3 39.0 H 21.0-28.0 mmol/L Arterial Blood Oxygen Saturation 75.7 L 94.0-98.0 % Arterial Blood Base Excess 11.7 H -2.0-3.0 mmol/L Hemoglobin (Blood Gas) 14.5 12.0-16.0 g/dL Sodium (Blood Gas) 138 136-145 MMOL/L Bedside Potassium (Blood Gas) 3.9 3.4-4.5 MMOL/L Bedside Chloride (Blood Gas) 94 L 98-107 MMOL/L Bedside Glucose (Blood Gas) 161 H 65-95 MG/DL Bedside Ionized Calcium (Blood Gas) 1.10 L 1.15-1.33 MMOL/L Bedside Lactic Acid (Blood Gas) 1.92 H 0.36-0.75 MMOL/L Blood Gas Temperature 37.0 35.5-37.0 CELSIUS Blood Gas Flow-by 3.00 0.00-15.00 L/min Blood Gas Vent Mode NC ROOM AIR FiO2 32.0 % Blood Gas Specimen Comment RN ,RR Phosphorus Level 3.6 2.5-4.9 mg/dL Blood Gas Respiration Rate 20.0 min. Blood Gas Tidal Volume 500 ml Test 12/20/24 17:47 12/20/24 17:19 12/20/24 14:23 Range/Units Total Creatine Kinase 38 21-232 U/L Troponin I High Sensitivity 9.9 4-50 ng/L Blood Gas PEEP 7 cm H2O Prothrombin Time 10.2 9.6-11.6 SEC Prothromb Time International Ratio 0.96 0.85-1.15 Activated Partial Thromboplast Time 26.8 26.3-35.5 SEC D-Dimer Quantitative (PE/DVT) 882 *H 0-500 ng/mL Current Medications Medications (Trade) Dose Ordered Sig/Jase Route PRN Reason Start Time Stop Time Status Last Admin Dose Admin Acetaminophen (TYLenol 325MG TAB) 650 mg Q6H PRN PO MILD PAIN (1-3) 12/20/24 14:00 01/19/25 13:59 12/22/24 04:16 650 MG Acetaminophen (TYLenol 500MG TAB) 500 mg Q6H PRN PO TEMP < 101.1 AND/OR HEADACHE 12/20/24 16:00 12/22/24 08:07 DC Acetaminophen (TYLenol 500MG TAB) 500 mg Q6H PRN PO TEMP < 101.1 AND/OR HEADACHE 12/22/24 08:30 01/21/25 08:29 Albuterol (DUOneb) 1 udvial Q6H PRN IH SHORTNESS OF BREATH 12/20/24 14:00 01/19/25 13:59 Albuterol (DUOneb) 1 udvial [id number] IH 12/20/24 15:00 12/20/24 14:32 DC Albuterol (DUOneb) 1 udvial [id number] IH 12/20/24 18:00 01/19/25 17:59 12/22/24 11:05 1 UDVIAL Amlodipine Besylate (NorvASC 2.5MG TAB) 2.5 mg DAILY PO 12/22/24 09:00 01/21/25 08:59 12/22/24 08:43 2.5 MG Atorvastatin Calcium (LIPItor 40MG) 40 mg DAILY PO 12/21/24 09:00 01/20/25 08:59 12/22/24 08:40 40 MG Budesonide (Pulmicort 0.5 Mg/2ml) 0.5 mg BIDRESP IH 12/20/24 18:00 01/19/25 17:59 12/22/24 06:42 0.5 MG Chlordiazepoxide HCl (LIBrium 25 MG CAP) 25 mg Q2H PRN PO ALCOHOL WITHDRAWAL PROTOCOL 12/22/24 08:30 12/29/24 08:29 Chlordiazepoxide HCl (LIBrium 25 MG CAP) 50 mg Q1H PRN PO ALCOHOL WITHDRAWAL PROTOCOL 12/22/24 08:30 12/29/24 08:29 Diazepam (VALium 5 MG/ML 2 ML SYG) 10 mg Q4H PRN IVP ALCOHOL WITHDRAWAL PROTOCOL 12/20/24 16:00 12/22/24 08:07 DC Diazepam (VALium 5 MG/ML 2 ML SYG) 20 mg Q4H PRN IVP ALCOHOL WITHDRAWAL PROTOCOL 12/20/24 16:00 12/22/24 08:07 DC Doxycycline Hyclate 250 ml @ 125 mls/hr BID IV 12/20/24 21:00 12/30/24 20:59 12/22/24 08:38 125 MLS/HR Doxycycline Hyclate 250 ml @ 125 mls/hr Q12H STAT IV 12/20/24 12:14 12/20/24 14:13 DC 12/20/24 12:23 125 MLS/HR Enoxaparin Sodium (Lovenox) 40 mg DAILY SQ 12/21/24 09:00 01/20/25 08:59 12/22/24 08:41 40 MG Folic Acid (FOLic ACID 1 MG TABLET) 1 mg DAILY PO 12/21/24 09:00 12/22/24 08:07 DC 12/21/24 09:51 1 MG Folic Acid (FOLic ACID 1 MG TABLET) 1 mg DAILY PO 12/22/24 09:00 12/24/24 09:01 12/22/24 08:39 1 MG Furosemide (LASix 20MG TAB) 20 mg DAILY PO 12/21/24 09:00 12/21/24 11:03 DC Furosemide (LASix 20MG VIAL) 20 mg Q8H IV 12/21/24 11:30 01/20/25 11:29 12/22/24 10:59 20 MG Guaifenesin/ Dextromethorphan (RobiTUSSin DM 200/20MG 10ML) 10 ml Q6H PRN PO COUGH 12/20/24 14:00 01/19/25 13:59 Home Med (Home Medication) (Pramipexole Di-HCl (Pramipex... HS PO 12/20/24 21:00 01/19/25 20:59 12/21/24 20:34 1 EACH Hydralazine HCl (APRESOLine 20MG INJ) 10 mg Q4H PRN IV ADMINISTER FOR SBP > 160 12/20/24 16:30 12/20/24 16:10 DC Hydralazine HCl (APRESOLine 20MG INJ) 10 mg Q6H PRN IV ADMINISTER FOR SBP > 170 12/20/24 14:00 01/19/25 13:59 Levofloxacin/ Dextrose 100 ml @ 100 mls/hr Q24H IV 12/20/24 12:30 12/20/24 12:38 DC Levothyroxine Sodium (SYNTHroid 100MCG TAB) 100 mcg SYN PO 12/21/24 06:30 01/20/25 06:29 12/22/24 06:12 100 MCG Levothyroxine Sodium (SYNTHroid 75MCG TAB) 75 mcg SYN PO 12/21/24 06:30 01/20/25 06:29 12/22/24 06:12 75 MCG Magnesium Sulfate 50 ml @ 0 mls/hr PROTOCOL IV 12/20/24 14:00 01/19/25 13:59 Meropenem (Merrem 1gm) 1 gm Q12H IVPB 12/20/24 14:00 12/20/24 13:50 DC Meropenem (Merrem 1gm) 1 gm Q8H IVPB 12/20/24 14:00 12/30/24 13:59 12/22/24 06:10 1 GM Methylprednisolone Sodium Succinate (Solu-medROL 40MG) 40 mg Q12H IVP 12/22/24 19:00 01/19/25 22:59 Methylprednisolone Sodium Succinate (Solu-medROL 40MG) 40 mg Q6H IVP 12/20/24 18:00 12/21/24 15:24 DC 12/21/24 15:04 40 MG Methylprednisolone Sodium Succinate (Solu-medROL 40MG) 40 mg Q8H IVP 12/21/24 23:00 12/22/24 08:12 DC 12/22/24 06:13 40 MG Methylprednisolone Sodium Succinate (Solu-medROL 40MG) 60 mg Q6H IVP 12/20/24 18:00 12/20/24 16:09 DC Metoprolol Succinate (TopROL XL) 25 mg DAILY PO 12/21/24 09:00 12/22/24 08:31 DC 12/21/24 09:56 25 MG Montelukast Sodium (SinguLAIR) 10 mg DAILY PO 12/21/24 09:00 12/20/24 17:18 DC Montelukast Sodium (SinguLAIR) 10 mg DAILY PO 12/21/24 09:00 01/20/25 08:59 12/22/24 08:39 10 MG Multivitamins Therapeutic (Multivitamin Tablet) 1 tab DAILY PO 12/21/24 09:00 12/22/24 08:07 DC 12/21/24 09:51 1 TAB Multivitamins Therapeutic (Multivitamin Tablet) 1 tab DAILY PO 12/22/24 09:00 01/21/25 08:59 12/22/24 08:39 1 TAB Nicotine (Nicoderm) 14 mg DAILY PRN TD nicotine withdrawals 12/20/24 16:30 01/19/25 16:29 12/22/24 06:29 14 MG Ondansetron HCl (zoFRAN 4MG INJ) 4 mg Q4H PRN IV NAUSEA 12/20/24 16:00 12/22/24 08:07 DC Ondansetron HCl (zoFRAN 4MG INJ) 4 mg Q4H PRN IV NAUSEA 12/22/24 08:30 01/21/25 08:29 Ondansetron HCl (zoFRAN 4MG INJ) 4 mg Q6H PRN IVP NAUSEA/VOMITING 12/20/24 14:00 12/20/24 16:02 DC Pantoprazole Sodium (PROTonix 40MG INJ) 40 mg Q24H IVP 12/20/24 14:00 12/21/24 10:09 DC 12/20/24 14:37 40 MG Pantoprazole Sodium (PROTonix 40MG TAB) 40 mg DAILY PO 12/22/24 09:00 01/21/25 08:59 12/22/24 08:39 40 MG Pharmacy Profile Note (Pharmacy Communication) 1 each ONCE MISC 12/20/24 14:00 12/20/24 13:48 DC Pharmacy Profile Note (Pharmacy Communication) 1 each PROTOCOL PRN MISC ETOH Withdrawal Score changes 12/20/24 16:00 12/22/24 08:07 DC Pharmacy Profile Note (Pharmacy Communication) 1 each PROTOCOL PRN MISC ETOH Withdrawal Score changes 12/22/24 08:30 12/29/24 08:29 Potassium Chloride 100 ml @ 50 mls/hr AD PRN IV POTASSIUM PROTOCOL 12/20/24 14:00 01/19/25 13:59 Promethazine HCl (Phenergan) 25 mg Q6H PRN PO NAUSEA 12/20/24 16:00 12/22/24 08:07 DC Promethazine HCl (Phenergan) 25 mg Q6H PRN PO NAUSEA 12/22/24 08:30 01/21/25 08:29 Sodium Chloride 1,000 ml @ 50 mls/hr Q20H IV 12/20/24 16:30 12/21/24 08:11 DC 12/20/24 20:10 50 MLS/HR Thiamine HCl (Vitamin B-1) 100 mg DAILY IV 12/22/24 09:00 12/24/24 09:01 12/22/24 08:40 100 MG Thiamine HCl (Vitamin B-1) 300 mg DAILY IV 12/21/24 09:00 12/22/24 08:07 DC 12/21/24 09:56 300 MG Trazodone HCl (DesyREL/OlepTRO) 200 mg HS PO 12/20/24 21:00 01/19/25 20:59 12/21/24 20:22 200 MG DIAGNOSTICS / RADIOLOGY: [place] [address] IMAGING REPORT Signed PATIENT: YEE OTTO MR#: [id number] : 1950 SEX: F AGE: 74 LOCATION: 2BH ORDER 152 STATUS: ADM IN REPORT#: [id number] SERVICE 0800 REASON: respiratory failure, r/o PE, hx of COPD, possible fibrosis, suspected PNA ORDERING PHYSICIAN: MALDONADO FLEMING MD PROCEDURE: CHES PE - CT CHEST PE PROTOCOL WWO CONT EXAM: CTA Chest with and without Intravenous Contrast for PE evaluation CLINICAL HISTORY: respiratory failure, r/o PE, hx of COPD, possible fibrosis, suspected PNA TECHNIQUE: Axial CTA images of the chest with and without intravenous contrast using a pulmonary embolism protocol. Multiplanar reconstructed images were created and reviewed. CONTRAST: None. was administered without incident. COMPARISON: None provided. FINDINGS: PULMONARY ARTERIES: The main pulmonary artery appears mildly dilated, measuring 3.1 cm. No evidence of central or segmental pulmonary embolism is seen. AORTA: There is no evidence for aneurysm or dissection of the thoracic aorta. LUNGS: Trace bilateral pleural effusions with fissural extension. Patchy area of consolidation in the lingula of the left upper lobe. Pleuroparenchymal fibrotic bands in both lungs. Mild centriacinar emphysema in the bilateral upper lobes. PLEURAL SPACES: No evidence of pneumothorax. HEART: Mild cardiomegaly. No significant pericardial effusion. Atherosclerosis of the coronary arteries, thoracic aorta, and proximal branch thoracic vessels. LYMPH NODES: No lymphadenopathy is evident. BONES: Degenerative changes in the visualized spine. No focal osseous abnormality or acute fracture. UPPER ABDOMEN: 3.8 x 3.0 cm cyst in the left kidney. Small sliding hiatus hernia. IMPRESSION: 1. No evidence of pulmonary embolism. 2. Left upper lobe lingular consolidation presumably from an infectious etiology. 3. Mild trace bilateral pleural effusions. 4. Mild cardiomegaly. Atherosclerosis of the coronary arteries, thoracic aorta, and proximal branch thoracic vessels. 5. The main pulmonary artery appears mildly dilated, measuring 3.1 cm. Recommend echocardiography to evaluate for possible pulmonary [place] hypertension. 6. Pleuroparenchymal fibrotic bands in both lungs. /[place] DICTATED BY: MARA GARZA Jr., MD DATE: 12/21/241432 ELECTRONICALLY SIGNED BY: MARA GARZA Jr., MD DATE: 12/21/241432 [address] [address] IMAGING REPORT Signed PATIENT: YEE OTTO MR#: [id number] : 1950 SEX: F AGE: 74 LOCATION: 2BH ORDER 230 STATUS: ADM IN REPORT#: [id number] SERVICE 0600 REASON: resp failure ORDERING PHYSICIAN: KAY VARGAS PROCEDURE: CXR1VW - CHEST 1VW EXAM: CR Chest, single view. CLINICAL HISTORY: Respiratory failure. COMPARISON: Prior chest radiograph dated December 21, 2024 FINDINGS: Moderate cardiomegaly with bilateral pulmonary congestion. Patchy ill-defined infiltrates in the lingula and left lower lobe. Mild left-sided pleural effusion. No evidence of pneumothorax. No acute osseous abnormality. IMPRESSION: Moderate cardiomegaly with bilateral pulmonary congestion. Patchy ill-defined infiltrates in the lingula and left lower lobe. Mild left-sided pleural effusion. No evidence of pneumothorax. Compared to the prior study, there is no significant interval change. /[place] DICTATED BY: MARA GARZA Jr., MD DATE: 12/22/24802 ELECTRONICALLY SIGNED BY: MARA GARZA Jr., MD DATE: 12/22/24802 ASSESSMENT: Acute on severe chronic COPD exacerbation, POA Suspected hx of pulmonary fibrosis, POA Acute on chronic hypoxemic respiratory failure, severe, POA Acute on chronic hypercapnic respiratory failure, POA Atypical chest pain, POA Suspected developing multifocal community-acquired pneumonia, POA History of COPD, POA History of pulmonary hypertension, POA History of chronic hypoxemic respiratory failure on supplemental O2 therapy POA Hypertension, POA Hyperlipidemia, POA Morbid obesity, POA History of penicillin allergy, POA PLAN: Acute on severe chronic COPD exacerbation, POA: * Continue BiPAP with the AVAPS. Settings- AVAPS T-max 25, P min 12, tidal volume 500, respiratory rate of 20, FiO2 of 40% * Patient today was on nasal cannula with O2 of 3L * CT chest (12/21/2024) showed Left upper lobe lingular consolidation with Mild trace bilateral pleural effusions, Mild cardiomegaly, possible pulmonary [place] hypertension, Pleuroparenchymal fibrotic bands in both lungs. * ABG (12/22/24) - pH of 7.4 pCO2 of 62 PO2 of <45 and bicarb of 39. * Keep NPO, NS at 50 mL/hour due to NPO status DC once patient is eating. * Continue Singulair 10 mg daily * Continue inhaled corticosteroids (Pulmicort) * Continue solumedrol (methylprednisolone) 40mg * Maintain oxygen saturation above 88% with supplemental oxygen as indicated. * Influenza A and B negative, COVID-19 negative, * DuoNebs and CPT as needed * Continue IV meropenem and doxycycline, pending respiratory culture and sensitivity results. Atypical chest pain, POA: * Cardiology was consulted * Atypical chest pain attributed to acute on chronic grade II diastolic dysfunction and COPD exacerbation. * Cardiac biomarkers (troponin, BNP) negative; ECG without ischemic changes. * Continue cardiac monitoring and consider high-resolution CT chest when stable to further evaluate dyspnea. * Echocardiogram shows stage II diastolic dysfunction; initiate IV furosemide 20 mg q8h for volume management as per cardiology recommendation. Suspected developing multifocal community-acquired pneumonia, POA: * Continue empiric broad-spectrum antibiotics:IV meropenem (day3) and doxycycline (day3), pending respiratory culture and sensitivity results. * Ordered respiratory cultures, gram stain, and Mycoplasma antibody testing, awaiting results. * CT chest (12/21/2024) showed Left upper lobe lingular consolidation with Mild trace bilateral pleural effusions, Mild cardiomegaly, possible pulmonary [place] hypertension, Pleuroparenchymal fibrotic bands in both lungs. Acute on chronic hypoxemic and hypercapnic respiratory failure POA: * Continue BiPAP with the AVAPS. Settings- AVAPS T-max 25, P min 12, tidal volume 500, respiratory rate of 20, FiO2 of 40% * Will monitor ABG serially. * Continue Solu-Medrol 40 mg q.6 hours IV push and wean as tolerated * Continue Singulair 10 mg daily * Continue inhaled corticosteroids (Pulmicort) Hyperlipidemia, POA: * Will continue atorvastatin 40mg Hypertension, POA * Will continue metoprolol 25mg Supportive measures * WiIl monitor labs daily * On lovenox 40mg for DVT prophylaxis * Gi PPX with protonix due to steroids ATTESTATION BY PHYSICIAN I have seen and examined the patient. I reviewed the documentation, medical decision making, and treatment plan as noted by the resident provider above. I agree with the findings and plan of care. RHONDA AGARWAL MD, SHAJI MD Dec 22, 2024 14:20
--- NOTE | 2024-12-22 15:32 | NUR ---
Discharge Planning Spoke to pt regarding order obtained for LTACH, pt refuses to go to any facility other than home. Educated pt it would be for continued antibiotics, O2 management, and physical therapy. Pt continued to refuse and states she will not be going anywhere except from hospital to home, verbalized understanding.
--- NOTE | 2024-12-22 15:39 | NUR ---
Home O2 Order obtained for Home o2 equipment to be re-evaluated by DME suppler. Reached out to [employer] pending call back.
[2024-12-22] MEDS: MAG/ALUM/SIMETH 30 ML UDCUP PO ONE (16:00)
--- NOTE | 2024-12-22 16:22 | NUR ---
[facility] [place] from [facility] [place] tomorrow to Evaluate portable O2.
[2024-12-22] MEDS: Solu-medROL 40MG VIAL IVP SCH (20:47)
[2024-12-22 21:09] LABS: MYCOPLASMA AB IGM <770 U/mL (0-769)
[2024-12-23] VITALS (28 sets, daily range): BP systolic 129–140; BP diastolic 45–71; PULSE 57–79; RESP 18–25; TEMP 97.7–98; O2SAT 92–96
[2024-12-23 04:16] LABS: IMMATURE GRANULOCYTE ABSOLUTE 0.05 K/uL (0-1); NUCLEATED RED BLOOD CELLS 0.0 % (0.0-0.19); PLATELET COUNT (AUTO) 136 K/uL (130-400); RED BLOOD CELL COUNT(AUTO) 3.75 MIL/uL (4.00-5.50); RED CELL DISTRIBUTION WIDTH 13.0 % (11.0-15.5); WHITE BLOOD COUNT (AUTO) 6.7 K/uL (4.8-10.8)
[2024-12-23 04:31] LABS: ASPARTATE AMINOTRANSFERASE 15.0 U/L (10-37); CREATININE 0.6 mg/dL (0.5-1.0); GLOMERULAR FILTR. RATE CALC 95.0 mL/min (>90); GLUCOSE,RANDOM 183.0 mg/dL (70-105); PHOSPHORUS 3.1 mg/dL (2.5-4.9); SODIUM SERUM 143.0 mmol/L (136-145); TOTAL PROTEIN, SERUM 5.7 g/dL (6.0-8.3); UREA NITROGEN, BLOOD 15.0 mg/dL (7-18)
--- NOTE | 2024-12-23 08:02 | PN ---
[facility] PROGRESS NOTE Date Patient Seen: Dec 23, 2024 Time of Visit: 08:02 Supervising Physician: Tyler Dodson MD Primary Care Physician: KASSIDY SEAMAN Outpatient Specialists: [ ] Inpatient Consults: CRISTINA REYNOSO, PROBLEM LIST: Acute on chronic hypoxemic and hypercapnic respiratory failure POA REQUIRING NIV Acute respiratory acidosis 2/2 to combination of OHS/COPD exacerbation, POA Left upper lobe pneumoniae POA Trace Bilateral pleural effusions Main pulmonary artery appears mildly dilated measuring 3.1 cm suspected pulmonary hypertension on CT Mild hypoalbuminemia POA Hyperglycemia POA Elevated D-dimer negative for DVT, Well's score for PE 0 point Abdominal distention r/o ascites Essential hypertension Obesity BMI of 39.1 Current smoker half pack a day Current ETOH 3 glasses of wine a day, @ risk for alcohol withdrawals INTERVAL HISTORY: Pt is awake alert and oriented x 2. no major overnight events. saturating 95% on 3 L via NC. She has diuresed well 1.4L in the last 24 hours. She has been transitioned by cardiology team to PO lasix. Per cardiology recommendations she is pending portable O2 Evaluation. as per [employer] they beata evaluate at home when pt discharged and they have also visited with pt to offer change of portable o2 device or change of DME company and pt has refused. Pt also refused any NIV DME at this time. She reports that DR Saavedra, her child care director specifically vangie her not to use it. She reports she rather follow up on DC with Dr Saavedra and await his recommendations. Pt will need to follow up with Dr Saavedra her child care director within one week. REVIEW OF SYSTEMS: 12 point ROS reviewed with patient. Pertinent positives mentioned above. Otherwise negative. PHYSICAL EXAM: GENERAL: alert, weak, awake oriented x 3 HEENT: EOMI, Sclera non icteric, moist mucosa NECK: Supple, no JVD, trachea midline LUNGS: clDiminished ear breath sounds bilaterally. No wheezes HEART: Regular rate and rhythm. Normal S1 and S2, without murmurs ABD: Abdomen distended firm, nontender. Bowel sounds present EXT: No clubbing cyanosis. trace edema to BLE NEURO: Alert and oriented to person, follows commands Vital Signs (last 8hr) Date Time Temp Pulse Resp B/P (MAP) Pulse Ox O2 Delivery O2 Flow Rate FiO2 12/23/24 06:21 76 22 12/23/24 06:09 76 22 12/23/24 06:08 76 20 N/Cannula Low lpm 3.0 32 12/23/24 04:30 71 20 92 12/23/24 04:00 67 20 94 12/23/24 03:46 97.9 69 20 129/45 90 BIPAP 30 12/23/24 03:30 59 20 93 12/23/24 03:00 57 20 93 12/23/24 02:30 61 20 93 12/23/24 02:00 63 20 94 12/23/24 01:30 63 22 96 12/23/24 01:00 72 24 94 BIPAP 30 12/23/24 00:30 58 24 94 LABS: Hematology Labs: Test 12/23/24 04:00 12/22/24 04:10 Range/Units White Blood Count 6.7 4.8-10.8 K/uL Red Blood Count 3.75 L 4.00-5.50 MIL/uL Hemoglobin 13.3 12.0-16.0 g/dL Hematocrit 40.9 36-48 % Mean Corpuscular Volume 109.1 H 79-99 fL Mean Corpuscular Hemoglobin 35.5 H 27.0-33.0 pg Mean Corpuscular Hemoglobin Concent 32.5 32.0-36.0 g/dL Red Cell Distribution Width 13.0 11.0-15.5 % Platelet Count 136 130-400 K/uL Mean Platelet Volume 9.2 7.5-10.5 fL Immature Granulocyte % (Auto) 0.7 0-1 % Neutrophils (%) (Auto) 85.3 H 40.0-77.0 % Lymphocytes (%) (Auto) 9.4 L 21.0-51.0 % Monocytes (%) (Auto) 4.6 3.0-13.0 % Eosinophils (%) (Auto) 0.0 0.0-8.0 % Basophils (%) (Auto) 0.0 0.0-5.0 % Neutrophils # (Auto) 5.7 1.8-7.7 K/uL Lymphocytes # (Auto) 0.6 L 1.0-4.8 K/uL Monocytes # (Auto) 0.3 0.1-1.0 K/uL Eosinophils # (Auto) 0.00 0.00-0.70 K/uL Basophils # (Auto) 0.00 0.00-0.20 K/uL Absolute Immature Granulocyte (auto 0.05 0-1 K/uL Nucleated Red Blood Cells 0.0 0.0-0.19 % White Cell Morphology Comment See comments Chemistry Labs: Test 12/23/24 04:00 Range/Units Sodium Level 143 136-145 mmol/L Potassium Level 4.1 3.5-5.1 mmol/L Chloride Level 98 L 101-111 mmol/L Carbon Dioxide Level 39 H 21-32 mmol/L Blood Urea Nitrogen 15 7-18 mg/dL Creatinine 0.6 0.5-1.0 mg/dL Glomerular Filtration Rate Calc 95 >90 mL/min Random Glucose 183 H 70-105 mg/dL Total Calcium 8.1 L 8.5-10.1 mg/dL Phosphorus Level 3.1 2.5-4.9 mg/dL Magnesium Level 2.00 1.80-2.40 mg/dL Total Bilirubin 0.4 0.2-1.0 mg/dL Aspartate Amino Transf (AST/SGOT) 15 10-37 U/L Alanine Aminotransferase (ALT/SGPT) 22 12-78 U/L Alkaline Phosphatase 115 50-136 U/L Total Protein 5.7 L 6.0-8.3 g/dL Albumin 2.8 L 3.5-5.0 g/dL DIAGNOSTICS / RADIOLOGY RESULTS: [ ] [place] [id number] [address] IMAGING REPORT Signed PATIENT: YEE OTTO MR#: [id number] : 1950 SEX: F AGE: 74 LOCATION: 2BH ORDER 2300 STATUS: ADM IN REPORT#: [id number] SERVICE [id number] REASON: resp failure ORDERING PHYSICIAN: KAY VARGAS PROCEDURE: CXR1VW - CHEST 1VW CHEST 1VW REASON: resp failure COMPARISON: Prior chest radiograph from 12/22/2024 is available. FINDINGS: Single view of the chest was obtained. There is cardiomegaly with a ventricular contour. There is uncoiling atherosclerotic change of thoracic aorta. There is diffuse interstitial pulmonary edema. There is also midlung field atelectasis.. Mediastinum and bony thorax appear unremarkable. IMPRESSION: 1. Cardiomegaly with interstitial pulmonary edema 2. There are bilateral midlung field subsegmental atelectasis.. DICTATED BY: ROSA FUENTES MD DATE: 12/23/241129 ELECTRONICALLY SIGNED BY: ROSA FUENTES MD DATE: 12/23/241133 PLAN wean steorids as possible continue diuretics per cardiology continue antibiotics for pneumonia Levaquin PO Given exposure of smoking for many years, patient has a developed COPD with exac erbation. Patient to follow up as outpatient at pulmonary clinic in 1 weeks for PFTs, Singulair 10 mg daily Follow respiratory cultures Maintain O2 sats above 88% Home o2 at basline DME to eval DME devices Gi PPX with protonix due to steroids smoking cessation Continue patch PRN Influenza a and B negative, COVID-19 negative, Chest x-ray in the morning AVAPS T-max 25, P min 12, tidal volume 500, respiratory rate of 20, FiO2 of 40%, PRN and HS. NEURO: Minimize central acting medications as possible. Maintain fall precautions, adequate lighting during the day PULMONARY: Supplemental 02 as needed. Maintain aspiration precautions at all times CARDIOVASCULAR: Follow hemodynamics. Vital signs per facility protocol GI & NUTRITION: Continue with nutritional support. Continue stool softeners and laxatives as needed. KIDNEYS & ELECTROLYTES: Strict monitoring of intake, output and overall fluid balance. Avoid nephrotoxic medications to the extent possible. Medications to be dosed according to renal function. Monitor electrolytes and replace as needed ENDOCRINE: Maintain blood glucose between 100-180 at all times. Hypoglycemia protocol in place INFECTIOUS DISEASE: Trend temperature, WBC and procalcitonin level Follow cultures, deescalate antibiotics as soon as possible. Panculture if new onset fever ONCOLOGY/HEMATOLOGY/COAGULATION: Monitor for s/s of bleeding Monitor hemoglobin, coagulation studies as needed SKIN: Pressure ulcer prevention per facility protocol Specialty mattress ORTHO/REHAB: Continue PT/OT Prophylaxis: Continue GI and DVT prophylaxis Code Status: Full Resuscitation Disposition: per primary team Other: ATTESTATION BY PHYSICIAN I attest that I reviewed and discussed the case with the Physician Net Web Developer as well as agree with the Physician Net Web Developer's findings, plans of care, and documentation above. Tyler Hamilton MD, NELLY J AGACNP Dec 23, 2024 08:02
--- NOTE | 2024-12-23 08:25 | PN ---
[facility] CARDIOLOGY PROGRESS NOTE Date Patient Seen: Dec 23, 2024 Time of Visit: 08:24 Interval History: [ CXR with improvement, urine output 4.7 cc/24hrs] Physical Examination: GENERAL: [No acute distress.] HEAD: [Normal with no signs of head trauma.] EYES: [PERRLA, EOMI, conjunctiva and sclera normal.] ENT: [Hearing grossly intact, normal oropharynx.] NECK: [Supple without JVD. There is no tenderness, lymphadenopathy, or masses. No thyromegaly. Normal carotid upstrokes without bruits.] LUNGS: [Clear breath sounds bilaterally. There are right basilar rales one third of the way up the chest. No wheezes, or rhonchi.] HEART: [Normal rate and rhythm. Normal S1 and S2 without mumurs, gallop or rub.] VASC: [Peripheral pulses +2 bilaterally.] ABD: [Bowel sounds normal, soft, nontender, no masses, no organomegaly. No audible bruits.] : [Not examined] LYMPH: [No lymphadenopathy noted.] EXT: [No clubbing, cyanosis or edema.] SKIN: [No rashes or lesions noted.] NEURO: [Awake, alert, and oriented x3. No focal sensory or strength deficits noted.] Laboratory: [ ] Hematology Labs: Test 12/23/24 04:00 12/22/24 04:10 Range/Units White Blood Count 6.7 4.8-10.8 K/uL Red Blood Count 3.75 L 4.00-5.50 MIL/uL Hemoglobin 13.3 12.0-16.0 g/dL Hematocrit 40.9 36-48 % Mean Corpuscular Volume 109.1 H 79-99 fL Mean Corpuscular Hemoglobin 35.5 H 27.0-33.0 pg Mean Corpuscular Hemoglobin Concent 32.5 32.0-36.0 g/dL Red Cell Distribution Width 13.0 11.0-15.5 % Platelet Count 136 130-400 K/uL Mean Platelet Volume 9.2 7.5-10.5 fL Immature Granulocyte % (Auto) 0.7 0-1 % Neutrophils (%) (Auto) 85.3 H 40.0-77.0 % Lymphocytes (%) (Auto) 9.4 L 21.0-51.0 % Monocytes (%) (Auto) 4.6 3.0-13.0 % Eosinophils (%) (Auto) 0.0 0.0-8.0 % Basophils (%) (Auto) 0.0 0.0-5.0 % Neutrophils # (Auto) 5.7 1.8-7.7 K/uL Lymphocytes # (Auto) 0.6 L 1.0-4.8 K/uL Monocytes # (Auto) 0.3 0.1-1.0 K/uL Eosinophils # (Auto) 0.00 0.00-0.70 K/uL Basophils # (Auto) 0.00 0.00-0.20 K/uL Absolute Immature Granulocyte (auto 0.05 0-1 K/uL Nucleated Red Blood Cells 0.0 0.0-0.19 % White Cell Morphology Comment See comments Chemistry Labs: Test 12/23/24 04:00 Range/Units Sodium Level 143 136-145 mmol/L Potassium Level 4.1 3.5-5.1 mmol/L Chloride Level 98 L 101-111 mmol/L Carbon Dioxide Level 39 H 21-32 mmol/L Blood Urea Nitrogen 15 7-18 mg/dL Creatinine 0.6 0.5-1.0 mg/dL Glomerular Filtration Rate Calc 95 >90 mL/min Random Glucose 183 H 70-105 mg/dL Total Calcium 8.1 L 8.5-10.1 mg/dL Phosphorus Level 3.1 2.5-4.9 mg/dL Magnesium Level 2.00 1.80-2.40 mg/dL Total Bilirubin 0.4 0.2-1.0 mg/dL Aspartate Amino Transf (AST/SGOT) 15 10-37 U/L Alanine Aminotransferase (ALT/SGPT) 22 12-78 U/L Alkaline Phosphatase 115 50-136 U/L Total Protein 5.7 L 6.0-8.3 g/dL Albumin 2.8 L 3.5-5.0 g/dL Diagnostics / Radiology: [Copy/Paste Echos/Imaging Report here] Impression and Plan: [COPD exacerbation Moderate Pulmonary HTN atypical chest pain Acute on chronic grade II diastolic dysfunction ] Plan: [ #atypical chest pain due to Acute on chronic grade II diastolic dysfunction and COPD exac -Trop and BNP neg -ECG no ST-T changes -given worsening dyspnea, recommend high resolution CT chest when she is stable -2d echo stage II diastolic dysfunction, otherwise normal, changed po lasix to IV 20 mg q8h to po lasix 20 mg bid If her O2 machine arrives today from [employer] and she oxygenates well with portable tank, recommend discharge and follow up with me in one week ] XAVIER ALBRIGHT MD Dec 23, 2024 08:25
[2024-12-23 08:34] LABS: ABG BASE EXCESS 9.7 mmol/L (-2.0-3.0); ABG HCO3 36.6 mmol/L (21.0-28.0); ABG OXYGEN SATURATION 93.7 % (94.0-98.0); ABG PCO2 58 mmHg (32-45); ABG PH 7.416 (7.350-7.450); DEVICE COMMENT RR; PO2, ARTERIAL BG 69.3 mmHg (83.0-108.0); TEMPERATURE, CELSIUS BG 37.0 CELSIUS (35.5-37.0); VENT MODE, BG NC (ROOM AIR)
--- NOTE | 2024-12-23 11:34 | HMCIMG ---
CHEST 1VW REASON: resp failure COMPARISON: Prior chest radiograph from 12/22/2024 is available. FINDINGS: Single view of the chest was obtained. There is cardiomegaly with a ventricular contour. There is uncoiling atherosclerotic change of thoracic aorta. There is diffuse interstitial pulmonary edema. There is also midlung field atelectasis.. Mediastinum and bony thorax appear unremarkable. IMPRESSION: 1. Cardiomegaly with interstitial pulmonary edema 2. There are bilateral midlung field subsegmental atelectasis..
--- NOTE | 2024-12-23 14:28 | NUR ---
[facility] Spoke to pt regarding portable O2, pt verbalized [employer] outside sales representative came by to explain use of portable o2...explained if she would like to switch to a tank or different company, pt stated No she does not wish to change companies or to a tank. Called Dr Crenshaw message left to inform her of o2 status.
[2024-12-23] MEDS ORDERED: METH4TAB PO (16:11)
[2024-12-23] MEDS ORDERED: LEVO750T68 PO (16:18)
--- NOTE | 2024-12-23 18:37 | PN ---
[facility] PROGRESS NOTE Date of Service: Dec 23, 2024 Time of Service: 18:24 SUBJECTIVE: HISTORY OF PRESENT ILLNESS: Date of service: 12/22/2024, patient was seen in ER room 13, patient is critically ill This is a 74-year-old female with underlying history of COPD, suspected pulmonary fibrosis, chronic hypercapnic respiratory failure, obesity, chronic hypoxemic respiratory failure on supplemental O2 therapy as outpatient, hypertension, hyperlipidemia, hypothyroidism who presented to the ER for further evaluation of progressive shortness of breath. Patient states that she has been ill for the past one week and has been having cough, wheezing and congestion. She is short of breath with minimal activities. She has been having subjective chills at home. She has also been having chest pain worsened with coughing. She denies any recent falls or syncopal episodes. She is followed by Dr. Diaz with pulmonology as outpatient. She is followed by Dr. Crenshaw with Cardiology as outpatient. She denies any previous history of [place]. denies previous history of congestive heart failure. Patient has a prior long-time smoking history. She recently was given a course of outpatient antibiotics with no significant improvement of symptoms. On presentation to the hospital, patient was noted to be afebrile with T-max of 98.4 F, heart rate of 66, blood pressure 128/58. Patient was noted to be s ignificantly hypoxemic with O2 saturations of 78 % on 2 L of O2 supplementation by nasal cannula. Labs on presentation showed WBC count of 8300, hemoglobin of 13.7, platelet count of 247346. BMP showed sodium of 143, potassium 4.7, BUN of nine, creatinine 0.6, magnesium of 2.10. Chest x-ray showed bilateral perihilar and bibasilar infiltrates. Patient will be admitted for further management of severe COPD exacerbation with acute on chronic hypercapnic and hypoxemic respiratory failure. Patient will be initiated on noninvasive ventilation with BiPAP, she will receive broad-spectrum antibiotics. Consultation with critical Care will be requested. Patient with also signs of atypical chest pain, D-dimer we will be obtained and if significantly elevated, we will consider CT PE protocol to rule out PE, we will have Cardiology follow this patient. Patient states that she wants to have more time and think about her code status with regards to intubation and resuscitation status tonight, she will let us know tomorrow about her code status. I have told her in case of emergency, she will need to urgently decide, she still told me she wants to think with regards to code status. She is able to tell me her name and and answer questions appropriately and able to make decisions. SUBJECTIVE: 12/21/2024: Patient was seen and examined in room 210. Patient was on noninvasive ventilation upon entering the room. Patient reports having history of COPD for a long time, and started feeling short of breath when she walked a few steps. Patient presented to the ER because of progressive symptoms and subjective chills at home. Patient denies fever, chills, sputum production, burning sensation in urine today. Patient reports that she hasn't eaten since Thursday and was hungry today. O2 flow rate - 3.0, FiO2-32. ABG today - ph-7.273, pco2- 79, po2- 89.5, HCO3- 35.8. Labs today-WBC-5.4, ESR-37, procal-<0.05 12/22/24: Patient was seen and examined in room 210. Patient was on nasal cannula with 3L of oxygen flow. Patient reports feeling better compared to prior day and was happy because she got to eat food. Patient reports persistent cough, shortness of breath but has improved compared to prior day. Patient denies fever, chills, sputum production, burning sensation in urine today. ABG today - ph-7.4, pco2- 62, po2- <45, HCO3-39. Labs today-WBC-7.0, ESR-37, procal-<0.05 12/23/24: Patient was seen and examined in room 210. Patient was on nasal cannula with 3L of oxygen flow. Patient reports feeling better. Patient reports her shortness of breath has improved from admission. Patient denies fever, chills, sputum production, burning sensation in urine today. ABG today - ph-7.4, pco2- 58, po2- 69.3, HCO3-39. Labs today-WBC-6.7. Pt refused portable oxygen tank and we are waiting for recommendations from Dr. Crenshaw from Cardiology standpoint. REVIEW OF SYSTEMS CONSTITUTIONAL: Denies fevers, chills, or night sweats. No unintentional weight loss reported. NEUROLOGICAL: Denies headache, amaurosis fugax, motor weakness, sensory deficit, vertigo/spinning sensation, gait abnormalities, or tremors. ENT: No hearing loss, otalgia, otorrhea, rhinitis, rhinorrhea, hoarseness, or sore throat. CARDIOVASCULAR: Denies any exertional angina, dyspnea on exertion, orthopnea, paroxysmal nocturnal dyspnea, palpitations, life-threatening arrhythmias, claudication. PULMONARY: Some breath, cough, congestion, wheezing ongoing for about one week, reports having history of COPD, reports being on O2 therapy as outpatient SLEEP: Denies morning headaches, daytime somnolence or napping. Denies difficulty falling asleep, staying asleep, waking from sleep. Denies knowledge of snoring. GASTROINTESTINAL: Denies any type of dysphagia to either liquids or solids. Denies nausea, vomiting, pyrosis, early satiety, abdominal pain, diarrhea, constipation, or changes in stool consistency or caliber. Denies coffee-ground emesis, hematemesis, hematochezia, or melanotic stools. GENITOURINARY: Denies frequency, urgency, nocturia, hematuria or incontinence (Storage/Irritative symptoms.) Low urinary stream, straining to void, urinary intermittency or hesitancy, splitting of the voiding stream, terminal dribbling. ENDOCRINOLOGIC: Denies polyuria, polydipsia, polyphagia or heat/cold intolerances. HEMATOLOGIC: Denies thrombophilia/previous clots, or coagulopathy/bleeding disorders. ONCOLOGIC: Denies personal history of malignancy. DERMATOLOGIC: Denies rashes or pruritus. PSYCHIATRIC: Denies any suicidal or homicidal ideation. Denies hallucinations. PHYSICAL EXAM GENERAL APPEARANCE: The patient is awake, alert, and oriented, in no acute cardiopulmonary distress. NEUROLOGICAL: Cranial nerves II-XII grossly intact. Motor is 5/5 in bilateral upper and lower extremities proximal to distal. No sensory deficits. HEENT: Face is symmetric. Pupils are equal and reactive. Extraocular movements are intact. NECK: Supple. No JVD. No thyromegaly. No submental, submandibular, pre-/post auricular, occipital or supraclavicular lymphadenopathy. CHEST: Normal chest expansion. No Telemetry. LUNGS: Crackles noted of bilateral lung bases with expiratory wheezing CARDIOVASCULAR: Regular. S1 and S2 normal. No appreciable rubs, murmurs or gallops. ABDOMEN: Soft, nontender, and nondistended. There is no rebound, voluntary guarding, or rigidity. : Deferred. No Draper. EXTREMITIES: Trace edema noted of bilateral lower extremity SKIN: No skin breakdown. Vital Signs (last 8hr) Date Time Temp Pulse Resp B/P (MAP) Pulse Ox O2 Delivery O2 Flow Rate FiO2 12/23/24 18:19 71 20 N/Cannula Low lpm 3.0 32 12/23/24 18:18 70 22 12/23/24 16:00 97.7 70 95 12/23/24 12:00 97.9 12/23/24 11:03 70 22 12/23/24 11:00 97.9 72 92 LABS: Laboratory: Test 12/23/24 08:32 12/23/24 04:00 12/22/24 04:10 12/22/24 03:03 Range/Units Blood Gas Specimen Type Arterial Arterial Blood pH 7.416 7.350-7.450 Arterial Blood Partial Pressure CO2 58 H 32-45 mmHg Arterial Blood Partial Pressure O2 69.3 L 83.0-108.0 mmHg Arterial Blood HCO3 36.6 H 21.0-28.0 mmol/L Arterial Blood Oxygen Saturation 93.7 L 94.0-98.0 % Arterial Blood Base Excess 9.7 H -2.0-3.0 mmol/L Blood Gas Temperature 37.0 35.5-37.0 CELSIUS Blood Gas Flow-by 3.00 0.00-15.00 L/min Blood Gas Vent Mode NC ROOM AIR FiO2 32.0 % Blood Gas Specimen Comment RR White Blood Count 6.7 4.8-10.8 K/uL Red Blood Count 3.75 L 4.00-5.50 MIL/uL Hemoglobin 13.3 12.0-16.0 g/dL Hematocrit 40.9 36-48 % Mean Corpuscular Volume 109.1 H 79-99 fL Mean Corpuscular Hemoglobin 35.5 H 27.0-33.0 pg Mean Corpuscular Hemoglobin Concent 32.5 32.0-36.0 g/dL Red Cell Distribution Width 13.0 11.0-15.5 % Platelet Count 136 130-400 K/uL Mean Platelet Volume 9.2 7.5-10.5 fL Immature Granulocyte % (Auto) 0.7 0-1 % Neutrophils (%) (Auto) 85.3 H 40.0-77.0 % Lymphocytes (%) (Auto) 9.4 L 21.0-51.0 % Monocytes (%) (Auto) 4.6 3.0-13.0 % Eosinophils (%) (Auto) 0.0 0.0-8.0 % Basophils (%) (Auto) 0.0 0.0-5.0 % Neutrophils # (Auto) 5.7 1.8-7.7 K/uL Lymphocytes # (Auto) 0.6 L 1.0-4.8 K/uL Monocytes # (Auto) 0.3 0.1-1.0 K/uL Eosinophils # (Auto) 0.00 0.00-0.70 K/uL Basophils # (Auto) 0.00 0.00-0.20 K/uL Absolute Immature Granulocyte (auto 0.05 0-1 K/uL Nucleated Red Blood Cells 0.0 0.0-0.19 % Sodium Level 143 136-145 mmol/L Potassium Level 4.1 3.5-5.1 mmol/L Chloride Level 98 L 101-111 mmol/L Carbon Dioxide Level 39 H 21-32 mmol/L Blood Urea Nitrogen 15 7-18 mg/dL Creatinine 0.6 0.5-1.0 mg/dL Glomerular Filtration Rate Calc 95 >90 mL/min Random Glucose 183 H 70-105 mg/dL Total Calcium 8.1 L 8.5-10.1 mg/dL Phosphorus Level 3.1 2.5-4.9 mg/dL Magnesium Level 2.00 1.80-2.40 mg/dL Total Bilirubin 0.4 0.2-1.0 mg/dL Aspartate Amino Transf (AST/SGOT) 15 10-37 U/L Alanine Aminotransferase (ALT/SGPT) 22 12-78 U/L Alkaline Phosphatase 115 50-136 U/L Total Protein 5.7 L 6.0-8.3 g/dL Albumin 2.8 L 3.5-5.0 g/dL White Cell Morphology Comment See comments Hemoglobin (Blood Gas) 14.5 12.0-16.0 g/dL Sodium (Blood Gas) 138 136-145 MMOL/L Bedside Potassium (Blood Gas) 3.9 3.4-4.5 MMOL/L Bedside Chloride (Blood Gas) 94 L 98-107 MMOL/L Bedside Glucose (Blood Gas) 161 H 65-95 MG/DL Bedside Ionized Calcium (Blood Gas) 1.10 L 1.15-1.33 MMOL/L Bedside Lactic Acid (Blood Gas) 1.92 H 0.36-0.75 MMOL/L Current Medications Medications (Trade) Dose Ordered Sig/Jase Route PRN Reason Start Time Stop Time Status Last Admin Dose Admin Acetaminophen (TYLenol 325MG TAB) 650 mg Q6H PRN PO MILD PAIN (1-3) 12/20/24 14:00 01/19/25 13:59 12/22/24 04:16 650 MG Acetaminophen (TYLenol 500MG TAB) 500 mg Q6H PRN PO TEMP < 101.1 AND/OR HEADACHE 12/20/24 16:00 12/22/24 08:07 DC Acetaminophen (TYLenol 500MG TAB) 500 mg Q6H PRN PO TEMP < 101.1 AND/OR HEADACHE 12/22/24 08:30 01/21/25 08:29 12/23/24 13:31 500 MG Albuterol (DUOneb) 1 udvial Q6H PRN IH SHORTNESS OF BREATH 12/20/24 14:00 01/19/25 13:59 Albuterol (DUOneb) 1 udvial [id number] IH 12/20/24 15:00 12/20/24 14:32 DC Albuterol (DUOneb) 1 udvial [id number] IH 12/20/24 18:00 01/19/25 17:59 12/23/24 18:16 1 UDVIAL Amlodipine Besylate (NorvASC 2.5MG TAB) 2.5 mg DAILY PO 12/22/24 09:00 01/21/25 08:59 12/23/24 08:55 2.5 MG Atorvastatin Calcium (LIPItor 40MG) 40 mg DAILY PO 12/21/24 09:00 01/20/25 08:59 12/23/24 08:55 40 MG Budesonide (Pulmicort 0.5 Mg/2ml) 0.5 mg BIDRESP IH 12/20/24 18:00 01/19/25 17:59 12/23/24 18:16 0.5 MG Chlordiazepoxide HCl (LIBrium 25 MG CAP) 25 mg Q2H PRN PO ALCOHOL WITHDRAWAL PROTOCOL 12/22/24 08:30 12/29/24 08:29 Chlordiazepoxide HCl (LIBrium 25 MG CAP) 50 mg Q1H PRN PO ALCOHOL WITHDRAWAL PROTOCOL 12/22/24 08:30 12/29/24 08:29 Diazepam (VALium 5 MG/ML 2 ML SYG) 10 mg Q4H PRN IVP ALCOHOL WITHDRAWAL PROTOCOL 12/20/24 16:00 12/22/24 08:07 DC Diazepam (VALium 5 MG/ML 2 ML SYG) 20 mg Q4H PRN IVP ALCOHOL WITHDRAWAL PROTOCOL 12/20/24 16:00 12/22/24 08:07 DC Doxycycline Hyclate 250 ml @ 125 mls/hr BID IV 12/20/24 21:00 12/30/24 20:59 12/23/24 08:56 125 MLS/HR Doxycycline Hyclate 250 ml @ 125 mls/hr Q12H STAT IV 12/20/24 12:14 12/20/24 14:13 DC 12/20/24 12:23 125 MLS/HR Enoxaparin Sodium (Lovenox) 40 mg DAILY SQ 12/21/24 09:00 01/20/25 08:59 12/23/24 08:56 40 MG Folic Acid (FOLic ACID 1 MG TABLET) 1 mg DAILY PO 12/21/24 09:00 12/22/24 08:07 DC 12/21/24 09:51 1 MG Folic Acid (FOLic ACID 1 MG TABLET) 1 mg DAILY PO 12/22/24 09:00 12/24/24 09:01 12/23/24 08:54 1 MG Furosemide (LASix 20MG TAB) 20 mg DAILY PO 12/21/24 09:00 12/21/24 11:03 DC Furosemide (LASix 20MG TAB) 20 mg Q12H PO 12/23/24 07:30 01/22/25 07:29 12/23/24 08:55 20 MG Furosemide (LASix 20MG VIAL) 20 mg Q8H IV 12/21/24 11:30 12/23/24 07:18 DC 12/23/24 04:03 20 MG Guaifenesin/ Dextromethorphan (RobiTUSSin DM 200/20MG 10ML) 10 ml Q6H PRN PO COUGH 12/20/24 14:00 01/19/25 13:59 Home Med (Home Medication) (Pramipexole Di-HCl (Pramipex... HS PO 12/20/24 21:00 01/19/25 20:59 12/22/24 20:47 1 EACH Hydralazine HCl (APRESOLine 20MG INJ) 10 mg Q4H PRN IV ADMINISTER FOR SBP > 160 12/20/24 16:30 12/20/24 16:10 DC Hydralazine HCl (APRESOLine 20MG INJ) 10 mg Q6H PRN IV ADMINISTER FOR SBP > 170 12/20/24 14:00 01/19/25 13:59 Levofloxacin/ Dextrose 100 ml @ 100 mls/hr Q24H IV 12/20/24 12:30 12/20/24 12:38 DC Levothyroxine Sodium (SYNTHroid 100MCG TAB) 100 mcg SYN PO 12/21/24 06:30 01/20/25 06:29 12/23/24 05:56 100 MCG Levothyroxine Sodium (SYNTHroid 75MCG TAB) 75 mcg SYN PO 12/21/24 06:30 01/20/25 06:29 12/23/24 05:56 75 MCG Magnesium Sulfate 50 ml @ 0 mls/hr PROTOCOL IV 12/20/24 14:00 01/19/25 13:59 Meropenem (Merrem 1gm) 1 gm Q12H IVPB 12/20/24 14:00 12/20/24 13:50 DC Meropenem (Merrem 1gm) 1 gm Q8H IVPB 12/20/24 14:00 12/30/24 13:59 12/23/24 13:31 1 GM Methylprednisolone Sodium Succinate (Solu-medROL 40MG) 40 mg Q12H IVP 12/22/24 19:00 01/19/25 22:59 12/23/24 05:55 40 MG Methylprednisolone Sodium Succinate (Solu-medROL 40MG) 40 mg Q6H IVP 12/20/24 18:00 12/21/24 15:24 DC 12/21/24 15:04 40 MG Methylprednisolone Sodium Succinate (Solu-medROL 40MG) 40 mg Q8H IVP 12/21/24 23:00 12/22/24 08:12 DC 12/22/24 06:13 40 MG Methylprednisolone Sodium Succinate (Solu-medROL 40MG) 60 mg Q6H IVP 12/20/24 18:00 12/20/24 16:09 DC Metoprolol Succinate (TopROL XL) 25 mg DAILY PO 12/21/24 09:00 12/22/24 08:31 DC 12/21/24 09:56 25 MG Montelukast Sodium (SinguLAIR) 10 mg DAILY PO 12/21/24 09:00 12/20/24 17:18 DC Montelukast Sodium (SinguLAIR) 10 mg DAILY PO 12/21/24 09:00 01/20/25 08:59 12/23/24 08:56 10 MG Multivitamins Therapeutic (Multivitamin Tablet) 1 tab DAILY PO 12/21/24 09:00 12/22/24 08:07 DC 12/21/24 09:51 1 TAB Multivitamins Therapeutic (Multivitamin Tablet) 1 tab DAILY PO 12/22/24 09:00 01/21/25 08:59 12/23/24 08:55 1 TAB Nicotine (Nicoderm) 14 mg DAILY PRN TD nicotine withdrawals 12/20/24 16:30 01/19/25 16:29 12/22/24 06:29 14 MG Ondansetron HCl (zoFRAN 4MG INJ) 4 mg Q4H PRN IV NAUSEA 12/20/24 16:00 12/22/24 08:07 DC Ondansetron HCl (zoFRAN 4MG INJ) 4 mg Q4H PRN IV NAUSEA 12/22/24 08:30 01/21/25 08:29 Ondansetron HCl (zoFRAN 4MG INJ) 4 mg Q6H PRN IVP NAUSEA/VOMITING 12/20/24 14:00 12/20/24 16:02 DC Pantoprazole Sodium (PROTonix 40MG INJ) 40 mg Q24H IVP 12/20/24 14:00 12/21/24 10:09 DC 12/20/24 14:37 40 MG Pantoprazole Sodium (PROTonix 40MG TAB) 40 mg DAILY PO 12/22/24 09:00 01/21/25 08:59 12/23/24 08:55 40 MG Pharmacy Profile Note (Pharmacy Communication) 1 each ONCE MISC 12/20/24 14:00 12/20/24 13:48 DC Pharmacy Profile Note (Pharmacy Communication) 1 each PROTOCOL PRN MISC ETOH Withdrawal Score changes 12/20/24 16:00 12/22/24 08:07 DC Pharmacy Profile Note (Pharmacy Communication) 1 each PROTOCOL PRN MISC ETOH Withdrawal Score changes 12/22/24 08:30 12/29/24 08:29 Potassium Chloride 100 ml @ 50 mls/hr AD PRN IV POTASSIUM PROTOCOL 12/20/24 14:00 01/19/25 13:59 Promethazine HCl (Phenergan) 25 mg Q6H PRN PO NAUSEA 12/20/24 16:00 12/22/24 08:07 DC Promethazine HCl (Phenergan) 25 mg Q6H PRN PO NAUSEA 12/22/24 08:30 01/21/25 08:29 Sodium Chloride 1,000 ml @ 50 mls/hr Q20H IV 12/20/24 16:30 12/21/24 08:11 DC 12/20/24 20:10 50 MLS/HR Thiamine HCl (Vitamin B-1) 100 mg DAILY IV 12/22/24 09:00 12/24/24 09:01 12/23/24 08:55 100 MG Thiamine HCl (Vitamin B-1) 300 mg DAILY IV 12/21/24 09:00 12/22/24 08:07 DC 12/21/24 09:56 300 MG Trazodone HCl (DesyREL/OlepTRO) 200 mg HS PO 12/20/24 21:00 01/19/25 20:59 12/22/24 20:47 200 MG DIAGNOSTICS / RADIOLOGY: [place] [id number] IMAGING REPORT Signed PATIENT: YEE OTTO MR#: [id number] : 1950 SEX: F AGE: 74 LOCATION: 2BH ORDER 2300 STATUS: ADM IN REPORT#: [id number] SERVICE 0600 REASON: resp failure ORDERING PHYSICIAN: KAY VARGAS PROCEDURE: CXR1VW - CHEST 1VW CHEST 1VW REASON: resp failure COMPARISON: Prior chest radiograph from 12/22/2024 is available. FINDINGS: Single view of the chest was obtained. There is cardiomegaly with a ventricular contour. There is uncoiling atherosclerotic change of thoracic aorta. There is diffuse interstitial pulmonary edema. There is also midlung field atelectasis.. Mediastinum and bony thorax appear unremarkable. IMPRESSION: 1. Cardiomegaly with interstitial pulmonary edema 2. There are bilateral midlung field subsegmental atelectasis.. DICTATED BY: ROSA FUENTES MD DATE: 12/23/24 113 ELECTRONICALLY SIGNED BY: ROSA FUENTES MD DATE: 12/23/24 1134 ASSESSMENT: Acute on severe chronic COPD exacerbation, POA Suspected hx of pulmonary fibrosis, POA Acute on chronic hypoxemic respiratory failure, severe, POA Acute on chronic hypercapnic respiratory failure, POA Atypical chest pain, POA Suspected developing multifocal community-acquired pneumonia, POA History of COPD, POA History of pulmonary hypertension, POA History of chronic hypoxemic respiratory failure on supplemental O2 therapy POA Hypertension, POA Hyperlipidemia, POA Morbid obesity, POA History of penicillin allergy, POA PLAN: Acute on severe chronic COPD exacerbation, POA: * Patient today was on nasal cannula with O2 of 3L * Continue BiPAP with the AVAPS. Settings- AVAPS T-max 25, P min 12, tidal volume 500, respiratory rate of 20, FiO2 of 40% * CT chest (12/21/2024) showed Left upper lobe lingular consolidation with Mild trace bilateral pleural effusions, Mild cardiomegaly, possible pulmonary [place] hypertension, Pleuroparenchymal fibrotic bands in both lungs. * ABG (12/23/24) - pH of 7.4 pCO2 of 58 PO2 of 69.3 and bicarb of 39. * Keep NPO, NS at 50 mL/hour due to NPO status DC once patient is eating. * Continue Singulair 10 mg daily * Continue inhaled corticosteroids (Pulmicort) * Continue solumedrol (methylprednisolone) 40mg * Maintain oxygen saturation above 88% with supplemental oxygen as indicated. * Influenza A and B negative, COVID-19 negative, * DuoNebs and CPT as needed * Continue IV meropenem and doxycycline, pending respiratory culture and sensitivity results. * Spoke to pt regarding portable O2, pt verbalized [employer] environmental marketing representative came by to explain use of portable o2. Explained if she would like to switch to a tank or different company, pt stated she does not wish to change companies or to a tank. Called Dr Crenshaw, message left to inform her of o2 status. waiting for her recommendations. Atypical chest pain, POA: * Cardiology was consulted * Atypical chest pain attributed to acute on chronic grade II diastolic dysfunction and COPD exacerbation. * Cardiac biomarkers (troponin, BNP) negative; ECG without ischemic changes. * Continue cardiac monitoring and consider high-resolution CT chest when stable to further evaluate dyspnea. * Echocardiogram shows stage II diastolic dysfunction; initiate IV furosemide 20 mg q8h for volume management as per cardiology recommendation. Suspected developing multifocal community-acquired pneumonia, POA: * Continue empiric broad-spectrum antibiotics:IV meropenem (day3) and doxycycline (day3), pending respiratory culture and sensitivity results. * Ordered respiratory cultures, gram stain, and Mycoplasma antibody testing, awaiting results. * CT chest (12/21/2024) showed Left upper lobe lingular consolidation with Mild trace bilateral pleural effusions, Mild cardiomegaly, possible pulmonary [place] hypertension, Pleuroparenchymal fibrotic bands in both lungs. Acute on chronic hypoxemic and hypercapnic respiratory failure POA: * Patient today was on nasal cannula with O2 of 3L * Continue BiPAP with the AVAPS. Settings- AVAPS T-max 25, P min 12, tidal volume 500, respiratory rate of 20, FiO2 of 40% * Will monitor ABG serially. * Continue Solu-Medrol 40 mg q.6 hours IV push and wean as tolerated * Continue Singulair 10 mg daily * Continue inhaled corticosteroids (Pulmicort) Hyperlipidemia, POA: * Will continue atorvastatin 40mg Hypertension, POA * Will continue metoprolol 25mg Supportive measures * WiIl monitor labs daily * On lovenox 40mg for DVT prophylaxis * Gi PPX with protonix due to steroids ATTESTATION BY PHYSICIAN I have seen and examined the patient. I reviewed the documentation, medical decision making, and treatment plan as noted by the resident physician above. I agree with the findings and plan of care. RHONDA AGARWAL MD, SHAJI MD Dec 23, 2024 18:37
[2024-12-24] VITALS (16 sets, daily range): BP systolic 113–159; BP diastolic 53–70; PULSE 64–82; RESP 18–24; TEMP 97.7–98.8; O2SAT 92–99
[2024-12-24 04:10] LABS: IMMATURE GRANULOCYTE ABSOLUTE 0.05 K/uL (0-1); NUCLEATED RED BLOOD CELLS 0.0 % (0.0-0.19); PLATELET COUNT (AUTO) 159 K/uL (130-400); RED BLOOD CELL COUNT(AUTO) 3.75 MIL/uL (4.00-5.50); RED CELL DISTRIBUTION WIDTH 12.9 % (11.0-15.5); WHITE BLOOD COUNT (AUTO) 6.6 K/uL (4.8-10.8)
[2024-12-24 04:24] LABS: ASPARTATE AMINOTRANSFERASE 18.0 U/L (10-37); CREATININE 0.8 mg/dL (0.5-1.0); GLOMERULAR FILTR. RATE CALC 78.0 mL/min (>90); GLUCOSE,RANDOM 178.0 mg/dL (70-105); SODIUM SERUM 141.0 mmol/L (136-145); TOTAL PROTEIN, SERUM 5.6 g/dL (6.0-8.3); UREA NITROGEN, BLOOD 13.0 mg/dL (7-18)
[2024-12-24] MEDS: acetaZOLAMIDE 500MG VIAL IV ONE ×2 (09:00→10:24)
--- NOTE | 2024-12-24 09:00 | HMCIMG ---
EXAM: CR Chest, single view. CLINICAL HISTORY: Respiratory failure. COMPARISON: Prior chest radiograph dated December 23, 2024 FINDINGS: Mild cardiomegaly with bilateral pulmonary congestion. Reticular opacities in the bilateral lung parenchyma, predominantly in the bilateral lower lobes. Mild bilateral pulmonary congestion. Linear fibrotic band and subsegmental atelectasis in the right parahilar region. No evidence of pneumothorax. No acute osseous abnormality. IMPRESSION: Mild cardiomegaly with bilateral pulmonary congestion. Reticular opacities in the bilateral lung parenchyma, predominantly in the bilateral lower lobes. Mild bilateral pulmonary congestion. Linear fibrotic band and subsegmental atelectasis in the right parahilar region. Compared to the prior study, there is no significant interval change. /[place]
--- NOTE | 2024-12-24 10:34 | PN ---
[facility] PROGRESS NOTE Date Patient Seen: Dec 24, 2024 Time of Visit: 10:34 Supervising Physician: Octavio Kong MD Primary Care Physician: KASSIDY SEAMAN Outpatient Specialists: [ ] Inpatient Consults: CRISTINA REYNOSO, PROBLEM LIST: Acute on chronic hypoxemic and hypercapnic respiratory failure POA improved Acute respiratory acidosis 2/2 to combination of OHS/COPD exacerbation, POA Left upper lobe pneumoniae POA Trace Bilateral pleural effusions Main pulmonary artery appears mildly dilated measuring 3.1 cm suspected pulmonary hypertension on CT Mild hypoalbuminemia POA Hyperglycemia POA Elevated D-dimer negative for DVT, Well's score for PE 0 point Abdominal distention r/o ascites Essential hypertension Obesity BMI of 39.1 Current smoker half pack a day Current ETOH 3 glasses of wine a day, @ risk for alcohol withdrawals INTERVAL HISTORY: Pt is awake alert and oriented x3. no complains at this time. continues on o2 at 3L via NC. Pt on NC at 3 L. she has been tolerating NIV at HS. This PM on abg PH 7.33/63/45/32. She reports she has o2 and per trimming caser it has been evaluated by [facility]. Per pt she does not have an NIV at home or bipap. Patient has been experiencing increasing shortness of breath and weakness due to chronic respiratory failure secondary to COPD and is at high risk for exacerbation. Ordering noninvasive ventilation to prevent life-threatening circumstances and CO2 retention. Home CPAP and BiPAP have been ruled out as patient will need volume ventilation with battery backup and out of rales to prevent breath stacking. Because of the patient's COPD and chronic respiratory failure this cannot be treated with the settings on the BiPAP, S, ST, or VAPS. This only NIV that has capability to provide assured target volume, MPV, as well as alarms. REVIEW OF SYSTEMS: 12 point ROS reviewed with patient. Pertinent positives mentioned above. Otherwise negative. PHYSICAL EXAM: GENERAL: alert, weak, awake oriented x 3 HEENT: EOMI, Sclera non icteric, moist mucosa NECK: Supple, no JVD, trachea midline LUNGS: Diminished breath sounds bilaterally. No wheezes HEART: Regular rate and rhythm. Normal S1 and S2, without murmurs ABD: Abdomen distended firm, nontender. Bowel sounds present EXT: No clubbing cyanosis. trace edema to BLE NEURO: Alert and oriented to person, follows commands Vital Signs (last 8hr) Date Time Temp Pulse Resp B/P (MAP) Pulse Ox O2 Delivery O2 Flow Rate FiO2 12/24/24 06:56 82 20 N/Cannula Low lpm 3.0 32 12/24/24 06:51 82 20 12/24/24 04:58 97.9 73 20 126/67 94 LABS: Hematology Labs: Test 12/24/24 03:53 Range/Units White Blood Count 6.6 4.8-10.8 K/uL Red Blood Count 3.75 L 4.00-5.50 MIL/uL Hemoglobin 13.1 12.0-16.0 g/dL Hematocrit 40.6 36-48 % Mean Corpuscular Volume 108.3 H 79-99 fL Mean Corpuscular Hemoglobin 34.9 H 27.0-33.0 pg Mean Corpuscular Hemoglobin Concent 32.3 32.0-36.0 g/dL Red Cell Distribution Width 12.9 11.0-15.5 % Platelet Count 159 130-400 K/uL Mean Platelet Volume 9.7 7.5-10.5 fL Immature Granulocyte % (Auto) 0.8 0-1 % Neutrophils (%) (Auto) 83.0 H 40.0-77.0 % Lymphocytes (%) (Auto) 10.5 L 21.0-51.0 % Monocytes (%) (Auto) 5.3 3.0-13.0 % Eosinophils (%) (Auto) 0.2 0.0-8.0 % Basophils (%) (Auto) 0.2 0.0-5.0 % Neutrophils # (Auto) 5.5 1.8-7.7 K/uL Lymphocytes # (Auto) 0.7 L 1.0-4.8 K/uL Monocytes # (Auto) 0.4 0.1-1.0 K/uL Eosinophils # (Auto) 0.01 0.00-0.70 K/uL Basophils # (Auto) 0.01 0.00-0.20 K/uL Absolute Immature Granulocyte (auto 0.05 0-1 K/uL Nucleated Red Blood Cells 0.0 0.0-0.19 % Chemistry Labs: Test 12/24/24 03:53 12/23/24 04:00 Range/Units Sodium Level 141 136-145 mmol/L Potassium Level 4.7 3.5-5.1 mmol/L Chloride Level 100 L 101-111 mmol/L Carbon Dioxide Level 38 H 21-32 mmol/L Blood Urea Nitrogen 13 7-18 mg/dL Creatinine 0.8 0.5-1.0 mg/dL Glomerular Filtration Rate Calc 78 >90 mL/min Random Glucose 178 H 70-105 mg/dL Total Calcium 8.2 L 8.5-10.1 mg/dL Magnesium Level 1.90 1.80-2.40 mg/dL Total Bilirubin 0.5 # 0.2-1.0 mg/dL Aspartate Amino Transf (AST/SGOT) 18 10-37 U/L Alanine Aminotransferase (ALT/SGPT) 22 12-78 U/L Alkaline Phosphatase 105 50-136 U/L Total Protein 5.6 L 6.0-8.3 g/dL Albumin 2.8 L 3.5-5.0 g/dL Phosphorus Level 3.1 2.5-4.9 mg/dL DIAGNOSTICS / RADIOLOGY RESULTS: [address] [address] IMAGING REPORT Signed PATIENT: YEE OTTO MR#: [id number] : 1950 SEX: F AGE: 74 LOCATION: [facility] ORDER 2300 STATUS: ADM IN REPORT#: [id number] SERVICE 0600 REASON: resp failure ORDERING PHYSICIAN: KAY VARGAS PROCEDURE: CXR1VW - CHEST 1VW EXAM: CR Chest, single view. CLINICAL HISTORY: Respiratory failure. COMPARISON: Prior chest radiograph dated December 23, 2024 FINDINGS: Mild cardiomegaly with bilateral pulmonary congestion. Reticular opacities in the bilateral lung parenchyma, predominantly in the bilateral lower lobes. Mild bilateral pulmonary congestion. Linear fibrotic band and subsegmental atelectasis in the right parahilar region. No evidence of pneumothorax. No acute osseous abnormality. IMPRESSION: Mild cardiomegaly with bilateral pulmonary congestion. Reticular opacities in the bilateral lung parenchyma, predominantly in the bilateral lower lobes. Mild bilateral pulmonary congestion. Linear fibrotic band and subsegmental atelectasis in the right parahilar region. Compared to the prior study, there is no significant interval change. /[place] DICTATED BY: RITO DOUGLAS MD DATE: 12/24/24958 ELECTRONICALLY SIGNED BY: RITO DOUGLAS MD DATE: 12/24/24958 PLAN wean steroids as possible continue antibiotics for pneumonia continue diuretics per cardiology Given exposure of smoking for many years, patient has a developed COPD with exacerbation. Patient to follow up as outpatient at pulmonary clinic in 1 weeks for PFTs, Singulair 10 mg daily Follow respiratory cultures Maintain O2 sats above 88% Home o2 at basline DME to eval DME devices Gi PPX with protonix due to steroids smoking cessation Continue patch PRN Influenza a and B negative, COVID-19 negative, Chest x-ray in the morning AVAPS T-max 25, P min 12, tidal volume 500, respiratory rate of 20, FiO2 of 40%, PRN and HS. CM for DC planning for possible trilogy machine eval. NEURO: Minimize central acting medications as possible. Maintain fall precautions, adequate lighting during the day PULMONARY: Supplemental 02 as needed. Maintain aspiration precautions at all times CARDIOVASCULAR: Follow hemodynamics. Vital signs per facility protocol GI & NUTRITION: Continue with nutritional support. Continue stool softeners and laxatives as needed. KIDNEYS & ELECTROLYTES: Strict monitoring of intake, output and overall fluid balance. Avoid nephrotoxic medications to the extent possible. Medications to be dosed according to renal function. Monitor electrolytes and replace as needed ENDOCRINE: Maintain blood glucose between 100-180 at all times. Hypoglycemia protocol in place INFECTIOUS DISEASE: Trend temperature, WBC and procalcitonin level Follow cultures, deescalate antibiotics as soon as possible. Panculture if new onset fever ONCOLOGY/HEMATOLOGY/COAGULATION: Monitor for s/s of bleeding Monitor hemoglobin, coagulation studies as needed SKIN: Pressure ulcer prevention per facility protocol Specialty mattress ORTHO/REHAB: Continue PT/OT Prophylaxis: Continue GI and DVT prophylaxis Code Status: Full Resuscitation Disposition: per primary team Other: ATTESTATION BY PHYSICIAN I reviewed the documentation, medical decision making, and treatment plan as noted by the mid-level provider above. I agree with the findings and plan of care. Octavio Kong MD, [facility] Dec 24, 2024 10:34
--- NOTE | 2024-12-24 11:31 | PN ---
This is a 74-year-old female with a history of pulmonary hypertension (mixed group II-group III), nonobstructive coronary artery disease, chronic obstructive pulmonary disease on supplemental oxygen, mild interstitial fibrosis, hypertension, obstructive sleep apnea and obesity. She was admitted 12/20/2024 secondary to chronic obstructive pulmonary disease and acute diastolic heart failure exacerbation. CT of the chest 12/21/2024 show trace bilateral pleural effusions with patchy area of left upper lobe consolidation. Chest x-ray this morning showed mild bilateral pulmonary congestion with reticular opacities in the bilateral lung parenchyma and linear fibrotic band and subsegmental atelectasis in the right parahilar region. She is currently in sinus rhythm with heart rates in the 60s. Echocardiogram 12/20/2024 shows an ejection fraction of 60 65% with stage II diastolic dysfunction, mild LVH, normal right ventricular systolic function, moderately dilated left atrium, trace mitral valve regurgitation, RVSP 15 mmHg. Most recent blood pressure is 126/67. White blood count 6.6, hemoglobin 13.1, hematocrit 40.6, platelets 159, creatinine 0.8, potassium 4.7, magnesium 1.90. Blood cultures x2 negative after 48 hours. Cumulative I and O balance -4716.9 mL. She offers up no new cardiac complaints. She is currently on 3 L of oxygen but states that she uses 2 L at home continuously. On exam, she is in no acute distress, regular rate and rhythm, lungs are clear to auscultation bilaterally, no lower extremity edema is noted. Assessment: 1. Chronic obstructive pulmonary disease exacerbation. 2. Chronic diastolic heart failure. 3. Pulmonary hypertension. 4. Hypertension. 5. Nonobstructive coronary artery disease. Plan: 1. She was admitted for chronic obstructive pulmonary disease with acute diastolic heart failure exacerbation. She diuresed 4716 mL. She is currently on 3 L of supplemental oxygen. She has received her portable oxygen tank. 2. Continue amlodipine 2.5 mg once daily, atorvastatin 40 mg once daily and furosemide 20 mg twice daily. 3. Continue recommendations as per the pulmonology team. 4. She can be discharged home from a cardiology standpoint. Vitals/Labs Vital Signs Date Time Temp Pulse Resp B/P (MAP) Pulse Ox O2 Delivery O2 Flow Rate FiO2 12/24/24 11:02 70 20 N/Cannula Low lpm 3.0 32 12/24/24 04:58 97.9 126/67 94 Laboratory Tests 12/24/24 03:53 OTF MERCEDES Dec 24, 2024 11:30
--- NOTE | 2024-12-24 13:30 | NUR ---
Patient AAOx4 transferred from ICU 210 to PCCU 231. No concerns at this time.
[2024-12-24 14:35] LABS: ABG OXYGEN SATURATION 80.0 % (94.0-98.0); BASE EXCESS,VENOUS BLOOD GAS 5.1 (-2.0-3.0); HCO3,VENOUS BLOOD GAS 32.9 (22.0-29.0); PH,VENOUS BLOOD GAS 7.339 (7.320-7.430); PO2,VENOUS BLOOD GAS 45.9 mmHg (23.0-48.0); TEMPERATURE, CELSIUS BG 37.0 CELSIUS (35.5-37.0); VENT MODE, BG NC (ROOM AIR)
[2024-12-24 15:56] LABS: PCO2,VENOUS BLOOD GAS 63 (38-54)
--- NOTE | 2024-12-24 16:06 | PN ---
[facility] PROGRESS NOTE Date of Service: Dec 24, 2024 Time of Service: 15:56 SUBJECTIVE: HISTORY OF PRESENT ILLNESS: Date of service: 12/22/2024, patient was seen in ER room 13, patient is critically ill This is a 74-year-old female with underlying history of COPD, suspected pulmonary fibrosis, chronic hypercapnic respiratory failure, obesity, chronic hypoxemic respiratory failure on supplemental O2 therapy as outpatient, hypertension, hyperlipidemia, hypothyroidism who presented to the ER for further evaluation of progressive shortness of breath. Patient states that she has been ill for the past one week and has been having cough, wheezing and congestion. She is short of breath with minimal activities. She has been having subjective chills at home. She has also been having chest pain worsened with coughing. She denies any recent falls or syncopal episodes. She is followed by Dr. Diaz with pulmonology as outpatient. She is followed by Dr. Crenshaw with Cardiology as outpatient. She denies any previous history of UT. denies previous history of congestive heart failure. Patient has a prior long-time smoking history. She recently was given a course of outpatient antibiotics with no significant improvement of symptoms. On presentation to the hospital, patient was noted to be afebrile with T-max of 98.4 F, heart rate of 66, blood pressure 128/58. Patient was noted to be s ignificantly hypoxemic with O2 saturations of 78 % on 2 L of O2 supplementation by nasal cannula. Labs on presentation showed WBC count of 8300, hemoglobin of 13.7, platelet count of 484354. BMP showed sodium of 143, potassium 4.7, BUN of nine, creatinine 0.6, magnesium of 2.10. Chest x-ray showed bilateral perihilar and bibasilar infiltrates. Patient will be admitted for further management of severe COPD exacerbation with acute on chronic hypercapnic and hypoxemic respiratory failure. Patient will be initiated on noninvasive ventilation with BiPAP, she will receive broad-spectrum antibiotics. Consultation with critical Care will be requested. Patient with also signs of atypical chest pain, D-dimer we will be obtained and if significantly elevated, we will consider CT PE protocol to rule out PE, we will have Cardiology follow this patient. Patient states that she wants to have more time and think about her code status with regards to intubation and resuscitation status tonight, she will let us know tomorrow about her code status. I have told her in case of emergency, she will need to urgently decide, she still told me she wants to think with regards to code status. She is able to tell me her name and and answer questions appropriately and able to make decisions. SUBJECTIVE: 12/21/2024: Patient was seen and examined in room 210. Patient was on noninvasive ventilation upon entering the room. Patient reports having history of COPD for a long time, and started feeling short of breath when she walked a few steps. Patient presented to the ER because of progressive symptoms and subjective chills at home. Patient denies fever, chills, sputum production, burning sensation in urine today. Patient reports that she hasn't eaten since Thursday and was hungry today. O2 flow rate - 3.0, FiO2-32. ABG today - ph-7.273, pco2- 79, po2- 89.5, HCO3- 35.8. Labs today-WBC-5.4, ESR-37, procal-<0.05 12/22/24: Patient was seen and examined in room 210. Patient was on nasal cannula with 3L of oxygen flow. Patient reports feeling better compared to prior day and was happy because she got to eat food. Patient reports persistent cough, shortness of breath but has improved compared to prior day. Patient denies fever, chills, sputum production, burning sensation in urine today. ABG today - ph-7.4, pco2- 62, po2- <45, HCO3-39. Labs today-WBC-7.0, ESR-37, procal-<0.05 12/23/24: Patient was seen and examined in room 210. Patient was on nasal cannula with 3L of oxygen flow. Patient reports feeling better. Patient reports her shortness of breath has improved from admission. Patient denies fever, chills, sputum production, burning sensation in urine today. ABG today - ph-7.4, pco2- 58, po2- 69.3, HCO3-39. Labs today-WBC-6.7. Pt refused portable oxygen tank and we are waiting for recommendations from Dr. Crenshaw from Cardiology standpoint. 12/24/24: Patient was seen and examined in room 210. Patient was on nasal cannula with 3L of oxygen flow. Patient reports feeling better. Patient denies fever, chills, sputum production, burning sensation in urine today. Labs today-WBC-6.6. VBG: ph 7.339, Pco2-63, po2 45.9, HCo3-32.9 lactic acid-2.12. Patient's vitals are hemodynamically stable. REVIEW OF SYSTEMS CONSTITUTIONAL: Denies fevers, chills, or night sweats. No unintentional weight loss reported. NEUROLOGICAL: Denies headache, amaurosis fugax, motor weakness, sensory deficit, vertigo/spinning sensation, gait abnormalities, or tremors. ENT: No hearing loss, otalgia, otorrhea, rhinitis, rhinorrhea, hoarseness, or sore throat. CARDIOVASCULAR: Denies any exertional angina, dyspnea on exertion, orthopnea, paroxysmal nocturnal dyspnea, palpitations, life-threatening arrhythmias, claudication. PULMONARY: Some breath, cough, congestion, wheezing ongoing for about one week, reports having history of COPD, reports being on O2 therapy as outpatient SLEEP: Denies morning headaches, daytime somnolence or napping. Denies difficulty falling asleep, staying asleep, waking from sleep. Denies knowledge of snoring. GASTROINTESTINAL: Denies any type of dysphagia to either liquids or solids. Denies nausea, vomiting, pyrosis, early satiety, abdominal pain, diarrhea, constipation, or changes in stool consistency or caliber. Denies coffee-ground emesis, hematemesis, hematochezia, or melanotic stools. GENITOURINARY: Denies frequency, urgency, nocturia, hematuria or incontinence (Storage/Irritative symptoms.) Low urinary stream, straining to void, urinary intermittency or hesitancy, splitting of the voiding stream, terminal dribbling. ENDOCRINOLOGIC: Denies polyuria, polydipsia, polyphagia or heat/cold intolerances. HEMATOLOGIC: Denies thrombophilia/previous clots, or coagulopathy/bleeding disorders. ONCOLOGIC: Denies personal history of malignancy. DERMATOLOGIC: Denies rashes or pruritus. PSYCHIATRIC: Denies any suicidal or homicidal ideation. Denies hallucinations. PHYSICAL EXAM GENERAL APPEARANCE: The patient is awake, alert, and oriented, in no acute cardiopulmonary distress. NEUROLOGICAL: Cranial nerves II-XII grossly intact. Motor is 5/5 in bilateral upper and lower extremities proximal to distal. No sensory deficits. HEENT: Face is symmetric. Pupils are equal and reactive. Extraocular movements are intact. NECK: Supple. No JVD. No thyromegaly. No submental, submandibular, pre-/postauricular, occipital or supraclavicular lymphadenopathy. CHEST: Normal chest expansion. No Telemetry. LUNGS: Crackles noted of bilateral lung bases with expiratory wheezing CARDIOVASCULAR: Regular. S1 and S2 normal. No appreciable rubs, murmurs or gallops. ABDOMEN: Soft, nontender, and nondistended. There is no rebound, voluntary guarding, or rigidity. : Deferred. No Draper. EXTREMITIES: Trace edema noted of bilateral lower extremity SKIN: No skin breakdown. Vital Signs (last 8hr) Date Time Temp Pulse Resp B/P (MAP) Pulse Ox O2 Delivery O2 Flow Rate FiO2 12/24/24 14:58 97.9 69 18 133/54 93 Nasal Cannula 3.0 12/24/24 13:30 93 Nasal Cannula* 3 50 Bi-PAP+ 12/24/24 11:02 70 20 N/Cannula Low lpm 3.0 32 12/24/24 11:00 70 20 12/24/24 08:00 97.7 66 20 159/70 95 Nasal Cannula 2.0 12/24/24 08:00 95 Nasal Cannula* 3 50 Bi-PAP+ LABS: Laboratory: Test 12/24/24 15:28 12/24/24 14:34 12/24/24 03:53 12/23/24 08:32 Range/Units Whole Blood Glucose 157 H 70-110 MG/DL Blood Gas Specimen Type Venous Arterial Blood Oxygen Saturation 80.0 L 94.0-98.0 % Venous Blood pH 7.339 7.320-7.430 Venous Blood pCO2 at Patient Temp 63 *H 38-54 Venous Blood pO2 at Patient Temp 45.9 23.0-48.0 mmHg Venous Blood HCO3 32.9 H 22.0-29.0 Venous Blood Base Excess 5.1 H -2.0-3.0 Venous Blood Total Hemoglobin 14.5 12.0-16.0 Sodium (Blood Gas) 139 136-145 MMOL/L Bedside Potassium (Blood Gas) 4.0 3.4-4.5 MMOL/L Bedside Chloride (Blood Gas) 99 98-107 MMOL/L Bedside Glucose (Blood Gas) 174 H 65-95 MG/DL Bedside Ionized Calcium (Blood Gas) 1.18 1.15-1.33 MMOL/L Bedside Lactic Acid (Blood Gas) 2.12 H 0.36-0.75 MMOL/L Blood Gas Temperature 37.0 35.5-37.0 CELSIUS Blood Gas Flow-by 3.00 0.00-15.00 L/min Blood Gas Vent Mode NC ROOM AIR FiO2 32.0 % Blood Gas Specimen Comment TOÑA SEBASTIAN White Blood Count 6.6 4.8-10.8 K/uL Red Blood Count 3.75 L 4.00-5.50 MIL/uL Hemoglobin 13.1 12.0-16.0 g/dL Hematocrit 40.6 36-48 % Mean Corpuscular Volume 108.3 H 79-99 fL Mean Corpuscular Hemoglobin 34.9 H 27.0-33.0 pg Mean Corpuscular Hemoglobin Concent 32.3 32.0-36.0 g/dL Red Cell Distribution Width 12.9 11.0-15.5 % Platelet Count 159 130-400 K/uL Mean Platelet Volume 9.7 7.5-10.5 fL Immature Granulocyte % (Auto) 0.8 0-1 % Neutrophils (%) (Auto) 83.0 H 40.0-77.0 % Lymphocytes (%) (Auto) 10.5 L 21.0-51.0 % Monocytes (%) (Auto) 5.3 3.0-13.0 % Eosinophils (%) (Auto) 0.2 0.0-8.0 % Basophils (%) (Auto) 0.2 0.0-5.0 % Neutrophils # (Auto) 5.5 1.8-7.7 K/uL Lymphocytes # (Auto) 0.7 L 1.0-4.8 K/uL Monocytes # (Auto) 0.4 0.1-1.0 K/uL Eosinophils # (Auto) 0.01 0.00-0.70 K/uL Basophils # (Auto) 0.01 0.00-0.20 K/uL Absolute Immature Granulocyte (auto 0.05 0-1 K/uL Nucleated Red Blood Cells 0.0 0.0-0.19 % Sodium Level 141 136-145 mmol/L Potassium Level 4.7 3.5-5.1 mmol/L Chloride Level 100 L 101-111 mmol/L Carbon Dioxide Level 38 H 21-32 mmol/L Blood Urea Nitrogen 13 7-18 mg/dL Creatinine 0.8 0.5-1.0 mg/dL Glomerular Filtration Rate Calc 78 >90 mL/min Random Glucose 178 H 70-105 mg/dL Total Calcium 8.2 L 8.5-10.1 mg/dL Magnesium Level 1.90 1.80-2.40 mg/dL Total Bilirubin 0.5 # 0.2-1.0 mg/dL Aspartate Amino Transf (AST/SGOT) 18 10-37 U/L Alanine Aminotransferase (ALT/SGPT) 22 12-78 U/L Alkaline Phosphatase 105 50-136 U/L Total Protein 5.6 L 6.0-8.3 g/dL Albumin 2.8 L 3.5-5.0 g/dL Arterial Blood pH 7.416 7.350-7.450 Arterial Blood Partial Pressure CO2 58 H 32-45 mmHg Arterial Blood Partial Pressure O2 69.3 L 83.0-108.0 mmHg Arterial Blood HCO3 36.6 H 21.0-28.0 mmol/L Arterial Blood Base Excess 9.7 H -2.0-3.0 mmol/L Test 12/23/24 04:00 Range/Units Phosphorus Level 3.1 2.5-4.9 mg/dL Current Medications Medications (Trade) Dose Ordered Sig/Jase Route PRN Reason Start Time Stop Time Status Last Admin Dose Admin Acetaminophen (TYLenol 325MG TAB) 650 mg Q6H PRN PO MILD PAIN (1-3) 12/20/24 14:00 01/19/25 13:59 12/22/24 04:16 650 MG Acetaminophen (TYLenol 500MG TAB) 500 mg Q6H PRN PO TEMP < 101.1 AND/OR HEADACHE 12/20/24 16:00 12/22/24 08:07 DC Acetaminophen (TYLenol 500MG TAB) 500 mg Q6H PRN PO TEMP < 101.1 AND/OR HEADACHE 12/22/24 08:30 01/21/25 08:29 12/23/24 13:31 500 MG Albuterol (DUOneb) 1 udvial Q6H PRN IH SHORTNESS OF BREATH 12/20/24 14:00 01/19/25 13:59 Albuterol (DUOneb) 1 udvial [id number] IH 12/20/24 15:00 12/20/24 14:32 DC Albuterol (DUOneb) 1 udvial [id number] IH 12/20/24 18:00 01/19/25 17:59 12/24/24 10:59 1 UDVIAL Amlodipine Besylate (NorvASC 2.5MG TAB) 2.5 mg DAILY PO 12/22/24 09:00 01/21/25 08:59 12/24/24 10:17 2.5 MG Atorvastatin Calcium (LIPItor 40MG) 40 mg DAILY PO 12/21/24 09:00 01/20/25 08:59 12/24/24 10:17 40 MG Budesonide (Pulmicort 0.5 Mg/2ml) 0.5 mg BIDRESP IH 12/20/24 18:00 01/19/25 17:59 12/24/24 06:50 0.5 MG Chlordiazepoxide HCl (LIBrium 25 MG CAP) 25 mg Q2H PRN PO ALCOHOL WITHDRAWAL PROTOCOL 12/22/24 08:30 12/29/24 08:29 Chlordiazepoxide HCl (LIBrium 25 MG CAP) 50 mg Q1H PRN PO ALCOHOL WITHDRAWAL PROTOCOL 12/22/24 08:30 12/29/24 08:29 Diazepam (VALium 5 MG/ML 2 ML SYG) 10 mg Q4H PRN IVP ALCOHOL WITHDRAWAL PROTOCOL 12/20/24 16:00 12/22/24 08:07 DC Diazepam (VALium 5 MG/ML 2 ML SYG) 20 mg Q4H PRN IVP ALCOHOL WITHDRAWAL PROTOCOL 12/20/24 16:00 12/22/24 08:07 DC Doxycycline Hyclate 250 ml @ 125 mls/hr BID IV 12/20/24 21:00 12/30/24 20:59 12/24/24 10:17 125 MLS/HR Doxycycline Hyclate 250 ml @ 125 mls/hr Q12H STAT IV 12/20/24 12:14 12/20/24 14:13 DC 12/20/24 12:23 125 MLS/HR Enoxaparin Sodium (Lovenox) 40 mg DAILY SQ 12/21/24 09:00 01/20/25 08:59 12/24/24 10:18 40 MG Folic Acid (FOLic ACID 1 MG TABLET) 1 mg DAILY PO 12/21/24 09:00 12/22/24 08:07 DC 10/8/25 09:51 1 MG Folic Acid (FOLic ACID 1 MG TABLET) 1 mg DAILY PO 12/22/24 09:00 12/24/24 09:01 DC 12/24/24 10:18 1 MG Furosemide (LASix 20MG TAB) 20 mg DAILY PO 12/21/24 09:00 12/21/24 11:03 DC Furosemide (LASix 20MG TAB) 20 mg Q12H PO 12/23/24 07:30 01/22/25 07:29 12/24/24 06:47 20 MG Furosemide (LASix 20MG VIAL) 20 mg Q8H IV 12/21/24 11:30 12/23/24 07:18 DC 12/23/24 04:03 20 MG Guaifenesin/ Dextromethorphan (RobiTUSSin DM 200/20MG 10ML) 10 ml Q6H PRN PO COUGH 12/20/24 14:00 01/19/25 13:59 Home Med (Home Medication) (Pramipexole Di-HCl (Pramipex... HS PO 12/20/24 21:00 01/19/25 20:59 12/23/24 20:48 1 EACH Hydralazine HCl (APRESOLine 20MG INJ) 10 mg Q4H PRN IV ADMINISTER FOR SBP > 160 12/20/24 16:30 12/20/24 16:10 DC Hydralazine HCl (APRESOLine 20MG INJ) 10 mg Q6H PRN IV ADMINISTER FOR SBP > 170 12/20/24 14:00 01/19/25 13:59 Levofloxacin/ Dextrose 100 ml @ 100 mls/hr Q24H IV 12/20/24 12:30 12/20/24 12:38 DC Levothyroxine Sodium (SYNTHroid 100MCG TAB) 100 mcg SYN PO 12/21/24 06:30 01/20/25 06:29 12/24/24 06:46 100 MCG Levothyroxine Sodium (SYNTHroid 75MCG TAB) 75 mcg SYN PO 12/21/24 06:30 01/20/25 06:29 12/24/24 06:46 75 MCG Magnesium Sulfate 50 ml @ 0 mls/hr PROTOCOL IV 12/20/24 14:00 01/19/25 13:59 Meropenem (Merrem 1gm) 1 gm Q12H IVPB 12/20/24 14:00 12/20/24 13:50 DC Meropenem (Merrem 1gm) 1 gm Q8H IVPB 12/20/24 14:00 12/30/24 13:59 12/24/24 14:46 1 GM Methylprednisolone Sodium Succinate (Solu-medROL 40MG) 40 mg Q12H IVP 12/22/24 19:00 01/19/25 22:59 12/24/24 06:46 40 MG Methylprednisolone Sodium Succinate (Solu-medROL 40MG) 40 mg Q6H IVP 12/20/24 18:00 12/21/24 15:24 DC 12/21/24 15:04 40 MG Methylprednisolone Sodium Succinate (Solu-medROL 40MG) 40 mg Q8H IVP 12/21/24 23:00 12/22/24 08:12 DC 12/22/24 06:13 40 MG Methylprednisolone Sodium Succinate (Solu-medROL 40MG) 60 mg Q6H IVP 12/20/24 18:00 12/20/24 16:09 DC Metoprolol Succinate (TopROL XL) 25 mg DAILY PO 12/21/24 09:00 12/22/24 08:31 DC 12/21/24 09:56 25 MG Montelukast Sodium (SinguLAIR) 10 mg DAILY PO 12/21/24 09:00 12/20/24 17:18 DC Montelukast Sodium (SinguLAIR) 10 mg DAILY PO 12/21/24 09:00 01/20/25 08:59 12/24/24 10:18 10 MG Multivitamins Therapeutic (Multivitamin Tablet) 1 tab DAILY PO 12/21/24 09:00 12/22/24 08:07 DC 12/21/24 09:51 1 TAB Multivitamins Therapeutic (Multivitamin Tablet) 1 tab DAILY PO 12/22/24 09:00 01/21/25 08:59 12/24/24 10:18 1 TAB Nicotine (Nicoderm) 14 mg DAILY PRN TD nicotine withdrawals 12/20/24 16:30 01/19/25 16:29 12/22/24 06:29 14 MG Ondansetron HCl (zoFRAN 4MG INJ) 4 mg Q4H PRN IV NAUSEA 12/20/24 16:00 109/25 08:07 DC Ondansetron HCl (zoFRAN 4MG INJ) 4 mg Q4H PRN IV NAUSEA 12/22/24 08:30 01/21/25 08:29 Ondansetron HCl (zoFRAN 4MG INJ) 4 mg Q6H PRN IVP NAUSEA/VOMITING 12/20/24 14:00 12/20/24 16:02 DC Pantoprazole Sodium (PROTonix 40MG INJ) 40 mg Q24H IVP 12/20/24 14:00 12/21/24 10:09 DC 12/20/24 14:37 40 MG Pantoprazole Sodium (PROTonix 40MG TAB) 40 mg DAILY PO 12/22/24 09:00 01/21/25 08:59 12/24/24 10:17 40 MG Pharmacy Profile Note (Pharmacy Communication) 1 each ONCE MISC 12/20/24 14:00 12/20/24 13:48 DC Pharmacy Profile Note (Pharmacy Communication) 1 each PROTOCOL PRN MISC ETOH Withdrawal Score changes 12/20/24 16:00 12/22/24 08:07 DC Pharmacy Profile Note (Pharmacy Communication) 1 each PROTOCOL PRN MISC ETOH Withdrawal Score changes 12/22/24 08:30 12/29/24 08:29 Potassium Chloride 100 ml @ 50 mls/hr AD PRN IV POTASSIUM PROTOCOL 12/20/24 14:00 01/19/25 13:59 Promethazine HCl (Phenergan) 25 mg Q6H PRN PO NAUSEA 12/20/24 16:00 12/22/24 08:07 DC Promethazine HCl (Phenergan) 25 mg Q6H PRN PO NAUSEA 12/22/24 08:30 01/21/25 08:29 Sodium Chloride 1,000 ml @ 50 mls/hr Q20H IV 12/20/24 16:30 12/21/24 08:11 DC 12/20/24 20:10 50 MLS/HR Thiamine HCl (Vitamin B-1) 100 mg DAILY IV 12/22/24 09:00 12/24/24 09:01 DC 12/24/24 10:17 100 MG Thiamine HCl (Vitamin B-1) 300 mg DAILY IV 12/21/24 09:00 12/22/24 08:07 DC 12/21/24 09:56 300 MG Trazodone HCl (DesyREL/OlepTRO) 200 mg HS PO 12/20/24 21:00 01/19/25 20:59 12/23/24 20:46 200 MG DIAGNOSTICS / RADIOLOGY: [facility] [id number] [place] [address] IMAGING REPORT Signed PATIENT: YEE OTTO MR#: [id number] : 1950 SEX: F AGE: 74 LOCATION: 2BH ORDER 99 STATUS: ADM IN REPORT#: [id number] SERVICE 9 REASON: resp failure ORDERING PHYSICIAN: KAY VARGAS PROCEDURE: CXR1VW - CHEST 1VW EXAM: CR Chest, single view. CLINICAL HISTORY: Respiratory failure. COMPARISON: Prior chest radiograph dated December 23, 2024 FINDINGS: Mild cardiomegaly with bilateral pulmonary congestion. Reticular opacities in the bilateral lung parenchyma, predominantly in the bilateral lower lobes. Mild bilateral pulmonary congestion. Linear fibrotic band and subsegmental atelectasis in the right parahilar region. No evidence of pneumothorax. No acute osseous abnormality. IMPRESSION: Mild cardiomegaly with bilateral pulmonary congestion. Reticular opacities in the bilateral lung parenchyma, predominantly in the bilateral lower lobes. Mild bilateral pulmonary congestion. Linear fibrotic band and subsegmental atelectasis in the right parahilar region. Compared to the prior study, there is no significant interval change. /[place] DICTATED BY: RITO DOUGLAS MD DATE: 12/24/24958 ELECTRONICALLY SIGNED BY: RITO DOUGLAS MD DATE: 12/24/24958 ASSESSMENT: Acute on severe chronic COPD exacerbation, POA Suspected hx of pulmonary fibrosis, POA Acute on chronic hypoxemic respiratory failure, severe, POA Acute on chronic hypercapnic respiratory failure, POA Atypical chest pain, POA Suspected developing multifocal community-acquired pneumonia, POA History of COPD, POA History of pulmonary hypertension, POA History of chronic hypoxemic respiratory failure on supplemental O2 therapy POA Hypertension, POA Hyperlipidemia, POA Morbid obesity, POA History of penicillin allergy, POA PLAN: Acute on severe chronic COPD exacerbation, POA: * Patient today was on nasal cannula with O2 of 3L * Was on BiPAP with the AVAPS. Settings- AVAPS T-max 25, P min 12, tidal volume 500, respiratory rate of 20, FiO2 of 40% * CT chest (12/21/2024) showed Left upper lobe lingular consolidation with Mild trace bilateral pleural effusions, Mild cardiomegaly, possible pulmonary [place] hypertension, Pleuroparenchymal fibrotic bands in both lungs. * ABG (12/23/24) - pH of 7.4 pCO2 of 58 PO2 of 69.3 and bicarb of 39. * VBG (12/24/24): ph 7.339, Pco2-63, po2 45.9, HCo3-32.9 lactic acid-2.12. * Keep NPO, NS at 50 mL/hour due to NPO status DC once patient is eating. * Continue Singulair 10 mg daily * Continue inhaled corticosteroids (Pulmicort) * Continue solumedrol (methylprednisolone) 40mg * Maintain oxygen saturation above 88% with supplemental oxygen as indicated. * Influenza A and B negative, COVID-19 negative, * DuoNebs and CPT as needed * Continue IV meropenem and doxycycline, pending respiratory culture and sensitivity results. * Spoke to pt regarding portable O2, pt verbalized [employer] pest control service representative came by to explain use of portable o2. Explained if she would like to switch to a tank or different company, pt stated she does not wish to change companies or to a tank. Called Dr Crenshaw, message left to inform her of o2 status. waiting for her recommendations. * Possible discharge tomorrow. Atypical chest pain, POA: * Cardiology was consulted * Atypical chest pain attributed to acute on chronic grade II diastolic dysfunction and COPD exacerbation. * Cardiac biomarkers (troponin, BNP) negative; ECG without ischemic changes. * Continue cardiac monitoring and consider high-resolution CT chest when stable to further evaluate dyspnea. * Echocardiogram shows stage II diastolic dysfunction; initiate IV furosemide 20 mg q8h for volume management as per cardiology recommendation. * Cardiology has cleared the patient for discharge Suspected developing multifocal community-acquired pneumonia, POA: * Continue empiric broad-spectrum antibiotics:IV meropenem (day3) and doxycycline (day3), pending respiratory culture and sensitivity results. * Ordered respiratory cultures, gram stain, and Mycoplasma antibody testing, awaiting results. * CT chest (12/21/2024) showed Left upper lobe lingular consolidation with Mild trace bilateral pleural effusions, Mild cardiomegaly, possible pulmonary [place] hypertension, Pleuroparenchymal fibrotic bands in both lungs. Acute on chronic hypoxemic and hypercapnic respiratory failure POA: * Patient today was on nasal cannula with O2 of 3L * Was on BiPAP with the AVAPS. Settings- AVAPS T-max 25, P min 12, tidal volume 500, respiratory rate of 20, FiO2 of 40% * Will monitor ABG serially. * Continue Solu-Medrol 40 mg q.6 hours IV push and wean as tolerated * Continue Singulair 10 mg daily * Continue inhaled corticosteroids (Pulmicort) Hyperlipidemia, POA: * Will continue atorvastatin 40mg Hypertension, POA * Will continue metoprolol 25mg Supportive measures * WiIl monitor labs daily * On lovenox 40mg for DVT prophylaxis * Gi PPX with protonix due to steroids ATTESTATION BY PHYSICIAN I have seen and examined the patient. I reviewed the documentation, medical decision making, and treatment plan as noted by the resident physician above. I agree with the findings and plan of care. RHONDA AGARWAL MD, SHAJI MD Dec 24, 2024 16:06
[2024-12-25] VITALS (10 sets, daily range): BP systolic 122–140; BP diastolic 46–67; PULSE 57–70; RESP 16–23; TEMP 97.6–98.8; O2SAT 93–96
[2024-12-25 04:48] LABS: ABG BASE EXCESS 2.8 mmol/L (-2.0-3.0); ABG HCO3 30.7 mmol/L (21.0-28.0); ABG OXYGEN SATURATION 93.2 % (94.0-98.0); ABG PCO2 62 mmHg (32-45); ABG PH 7.316 (7.350-7.450); DEVICE COMMENT LB RN MAX; PO2, ARTERIAL BG 73.4 mmHg (83.0-108.0); TEMPERATURE, CELSIUS BG 37.0 CELSIUS (35.5-37.0); VENT MODE, BG AVAPS MA25MIN12 (ROOM AIR)
--- NOTE | 2024-12-25 12:04 | NUR ---
ISIAH AVENDAÑO NOTIFIED THAT THERE IS A ORDER FOR EVAL FOR HOME TRILOGY MACHINE. PER PRIMARY PHYSICIAN PLAN TO DC PATIENT TODAY.
--- NOTE | 2024-12-25 12:14 | NUR ---
cm note met with pt and discussed md orders for Trilogy NIV machine. pt states she does not want the trilogy machine at this time. states she did discuss with Boogie Wisdom NP and states She wishes to wait to discuss with her primary hitcher dr. Diaz. states she will call to get appointment and followup with him on this matter. updated alysha nurse and Boogie Wisdom NP.
--- NOTE | 2024-12-25 12:26 | PN ---
[facility] PROGRESS NOTE Date Patient Seen: Dec 25, 2024 Time of Visit: 1129 Supervising Physician: Dr. Mcleod Primary Care Physician: KASSIDY SEAMAN Outpatient Specialists: [ ] Inpatient Consults: CRISTINA REYNOSO, PROBLEM LIST: Acute on chronic hypoxemic and hypercapnic respiratory failure POA improved Acute respiratory acidosis 2/2 to combination of OHS/COPD exacerbation, POA Left upper lobe pneumoniae POA Trace Bilateral pleural effusions Main pulmonary artery appears mildly dilated measuring 3.1 cm suspected pulmonary hypertension on CT Mild hypoalbuminemia POA Hyperglycemia POA Elevated D-dimer negative for DVT, Well's score for PE 0 point Abdominal distention r/o ascites Essential hypertension Obesity BMI of 39.1 Current smoker half pack a day Current ETOH 3 glasses of wine a day, @ risk for alcohol withdrawals INTERVAL HISTORY: Pt is awake alert and oriented x3. no complains at this time. continues on o2 at 3L via NC. Pt on NC at 3 L. she has been tolerating NIV at HS. This PM on abg PH 7.33/63/45/32. She reports she has o2 and per field nurse case manager it has been evaluated by [facility]lo. Per pt she does not have an NIV at home or bipap. Patient has been experiencing increasing shortness of breath and weakness due to chronic respiratory failure secondary to COPD and is at high risk for exacerbation. Ordering noninvasive ventilation to prevent life-threatening circumstances and CO2 retention. Home CPAP and BiPAP have been ruled out as patient will need volume ventilation with battery backup and out of rales to prevent breath stacking. Because of the patient's COPD and chronic respiratory failure this cannot be treated with the settings on the BiPAP, S, ST, or VAPS. This only NIV that has capability to provide assured target volume, MPV, as well as alarms. 12/25 patient was seen and examined by bedside no family present. Patient remains on2 L nasal cannula. Patient is at her baseline does use home oxygen. Case management working on [place] prior to discharge. At time of visit patient denies any chest pain report shortness of breadth has improved. Denies nausea vomiting or abdominal pain. Has remained hemodynamically stable. We will continue to monitor patient's respiratory status closely. Dispo per primary team REVIEW OF SYSTEMS: 12 point ROS reviewed with patient. Pertinent positives mentioned above. Otherwise negative. PHYSICAL EXAM: GENERAL: alert, weak, awake oriented x 3 HEENT: EOMI, Sclera non icteric, moist mucosa NECK: Supple, no JVD, trachea midline LUNGS: Diminished breath sounds bilaterally. No wheezes HEART: Regular rate and rhythm. Normal S1 and S2, without murmurs ABD: Abdomen distended firm, nontender. Bowel sounds present EXT: No clubbing cyanosis. trace edema to BLE NEURO: Alert and oriented to person, follows commands Vital Signs (last 8hr) Date Time Temp Pulse Resp B/P (MAP) Pulse Ox O2 Delivery O2 Flow Rate FiO2 12/25/24 12:18 97.7 70 20 139/59 92 Nasal Cannula 3.0 12/25/24 11:24 65 20 12/25/24 11:24 68 20 N/Cannula Low lpm 2.0 12/25/24 08:00 95 Nasal Cannula* 3 50 Bi-PAP+ 12/25/24 07:40 97.5 63 16 140/67 95 Nasal Cannula 3.0 12/25/24 06:59 57 20 12/25/24 06:57 57 20 N/Cannula Low lpm 3.0 12/25/24 06:54 57 20 12/25/24 04:50 65 20 12/25/24 04:50 65 20 N/Cannula Low lpm 3.0 32 12/25/24 04:35 68 23 30 LABS: Hematology Labs: Test 12/24/24 03:53 Range/Units White Blood Count 6.6 4.8-10.8 K/uL Red Blood Count 3.75 L 4.00-5.50 MIL/uL Hemoglobin 13.1 12.0-16.0 g/dL Hematocrit 40.6 36-48 % Mean Corpuscular Volume 108.3 H 79-99 fL Mean Corpuscular Hemoglobin 34.9 H 27.0-33.0 pg Mean Corpuscular Hemoglobin Concent 32.3 32.0-36.0 g/dL Red Cell Distribution Width 12.9 11.0-15.5 % Platelet Count 159 130-400 K/uL Mean Platelet Volume 9.7 7.5-10.5 fL Immature Granulocyte % (Auto) 0.8 0-1 % Neutrophils (%) (Auto) 83.0 H 40.0-77.0 % Lymphocytes (%) (Auto) 10.5 L 21.0-51.0 % Monocytes (%) (Auto) 5.3 3.0-13.0 % Eosinophils (%) (Auto) 0.2 0.0-8.0 % Basophils (%) (Auto) 0.2 0.0-5.0 % Neutrophils # (Auto) 5.5 1.8-7.7 K/uL Lymphocytes # (Auto) 0.7 L 1.0-4.8 K/uL Monocytes # (Auto) 0.4 0.1-1.0 K/uL Eosinophils # (Auto) 0.01 0.00-0.70 K/uL Basophils # (Auto) 0.01 0.00-0.20 K/uL Absolute Immature Granulocyte (auto 0.05 0-1 K/uL Nucleated Red Blood Cells 0.0 0.0-0.19 % Chemistry Labs: Test 12/25/24 11:55 12/24/24 03:53 Range/Units Whole Blood Glucose 184 H 70-110 MG/DL Sodium Level 141 136-145 mmol/L Potassium Level 4.7 3.5-5.1 mmol/L Chloride Level 100 L 101-111 mmol/L Carbon Dioxide Level 38 H 21-32 mmol/L Blood Urea Nitrogen 13 7-18 mg/dL Creatinine 0.8 0.5-1.0 mg/dL Glomerular Filtration Rate Calc 78 >90 mL/min Random Glucose 178 H 70-105 mg/dL Total Calcium 8.2 L 8.5-10.1 mg/dL Magnesium Level 1.90 1.80-2.40 mg/dL Total Bilirubin 0.5 # 0.2-1.0 mg/dL Aspartate Amino Transf (AST/SGOT) 18 10-37 U/L Alanine Aminotransferase (ALT/SGPT) 22 12-78 U/L Alkaline Phosphatase 105 50-136 U/L Total Protein 5.6 L 6.0-8.3 g/dL Albumin 2.8 L 3.5-5.0 g/dL DIAGNOSTICS / RADIOLOGY RESULTS: na PLAN Continue Solu-Medrol 40 mg b.i.d. continue antibiotics for pneumonia continue diuretics per cardiology Given exposure of smoking for many years, patient has a developed COPD with exacerbation. Patient to follow up as outpatient at pulmonary clinic in 1 weeks for PFTs, Singulair 10 mg daily Follow respiratory cultures Maintain O2 sats above 88% Home o2 at basline DME to eval DME devices Gi PPX with protonix due to steroids smoking cessation Continue nicotine patch PRN AVAPS T-max 25, P min 12, tidal volume 500, respiratory rate of 20, FiO2 of 40%, PRN and HS. CM for DC planning for possible trilogy machine eval. NEURO: Minimize central acting medications as possible. Maintain fall precautions, adequate lighting during the day PULMONARY: Supplemental 02 as needed. Maintain aspiration precautions at all times CARDIOVASCULAR: Follow hemodynamics. Vital signs per facility protocol GI & NUTRITION: Continue with nutritional support. Continue stool softeners and laxatives as needed. KIDNEYS & ELECTROLYTES: Strict monitoring of intake, output and overall fluid balance. Avoid nephrotoxic medications to the extent possible. Medications to be dosed according to renal function. Monitor electrolytes and replace as needed ENDOCRINE: Maintain blood glucose between 100-180 at all times. Hypoglycemia protocol in place INFECTIOUS DISEASE: Trend temperature, WBC and procalcitonin level Follow cultures, deescalate antibiotics as soon as possible. Panculture if new onset fever ONCOLOGY/HEMATOLOGY/COAGULATION: Monitor for s/s of bleeding Monitor hemoglobin, coagulation studies as needed SKIN: Pressure ulcer prevention per facility protocol Specialty mattress ORTHO/REHAB: Continue PT/OT Prophylaxis: Continue GI and DVT prophylaxis Code Status: Full Resuscitation Disposition: per primary team Other: Case discussed with supervising physician plan of care agreed upon DANIEL KRAFT Dec 25, 2024 12:26
[2024-12-25] MEDS ORDERED: AMLO2.5T2 PO (13:22)
[2024-12-25] MEDS ORDERED: FURO20TA6 PO (13:22)
[2024-12-25] MEDS ORDERED: ATOR40TA69 PO (13:30)
--- NOTE | 2024-12-25 14:12 | DS ---
Discharge Summary Hospital Course Summary: This is a 74-year-old female with a past medical history significant for severe COPD with chronic hypoxemic and hypercapnic respiratory failure on home oxygen therapy, pulmonary hypertension, mild interstitial pulmonary fibrosis, hypertension, chronic diastolic heart failure, hyperlipidemia, obesity and hypo thyroidism. She was admitted on 12/20/2024 with worsening shortness of breath, cough and congestion consistent with acute on chronic COPD exacerbation complicated by acute on chronic hypoxemic and hypercapnic respiratory failure and acute decompensated diastolic heart failure. On presentation, she was hypoxemic despite supplemental oxygen and was started on BiPAP, IV corticostero ids and broad-spectrum antibiotics including meropenem and doxycycline. CT chest demonstrated left upper lobe consolidation with mild bilateral pleural effusions and findings suggestive of chronic pulmonary fibrosis. During hospitalization, patient was managed with noninvasive ventilation, IV steroids, inhaled bronchodilators, empiric antibiotics and diuretics per Cardiology recommendations. Serial ABGs showed gradual improvement in both oxygenation and ventilation parameters with stabilization of her respiratory status. Cardiology evaluation revealed stage II diastolic dysfunction with preserved ejection fraction and mild pulmonary hypertension. She responded well to diuresis. Blood and respiratory cultures remained negative and she remained afebrile and hemodynamically stable throughout her stay. At discharge, the patient is clinically improved, saturating adequately on 3 L nasal cannula oxygen, close to her home baseline of 2 L. She is tolerating oral intake, ambulating with minimal assistance, and has no new cardiac complaints. She has received her portable oxygen setup and case management is arranging a home trilogy device for nocturnal support. After discharge, patient will follow up with pulmonology. She has been educated on medication adherence, smoking cessation, oxygen and early recognition of exacerbation symptoms. Focused Factory Manager(s): [facility] CONSULTATION NOTE Date Patient Seen: Dec 20, 2024 Time of Visit: 15:34 Supervising Physician: BETHANY MAURICE MD Reason for Consultation: RESP FAILURE & CCM PROBLEM LIST: Acute on chronic hypoxemic and hypercapnic respiratory failure POA Acute respiratory acidosis, POA COPD exacerbation, POA Suspected aspiration Pneumonitis POA Mild hypoalbuminemia POA Hyperglycemia POA Elevated D-dimer negative for DVT, Well's score for PE 0 point BNP (WNL) -likely not acute CHF Abdominal distention r/o ascites Essential hypertension Obesity BMI of 39.1 Current smoker half pack a day Current ETOH 3 glasses of wine a day, @ risk for alcohol withdrawals PLAN Continue Solu-Medrol 40 mg q.6 hours IV push and wean as tolerated Keep NPO NS at 50 mL/hour due to NPO status DC once patient is eating. Consider Lasix if signs of fluid overload. For now hold Lasix due to BNP within normal limits. Empiric antibiotics per primary team Given exposure of smoking for many years, patient has a developed COPD with e xacerbation. Patient to follow up as outpatient at pulmonary clinic in two weeks for PFTs, we will continue with nebulizer treatments with atrovent, Pulmicort, steroids. Singulair 10 mg daily Follow respiratory cultures Maintain O2 sats above 88% Gi PPX with protonix due to steroids smoking cessation Continue patch PRN Influenza a and B negative, COVID-19 negative, Chest x-ray in the morning AVAPS T-max 25, P min 12, tidal volume 500, respiratory rate of 20, FiO2 of 40% NEURO: Minimize central acting medications as possible. Fall Precautions. Well lighted room through the day and minimize interruptions through the night to prevent acute delirium. CIWA protocol with diazepam PULMONARY: Supplemental 02 as needed Titrate Fio2 to keep Spo2 > or = 90% DuoNebs and CPT as needed IS hourly while awake for pulmonary hygiene Out of bed to chair as tolerated Follow ABG Chest x-ray in a.m. CARDIOVASCULAR: Follow hemodynamics. Titrate vasopressor to keep MAP >65 or systolic blood pressure >95mmHg Drips: None LINES: PIV GI & NUTRITION: Continue nutritional support Aspirations precautions Prokinetic agents and laxatives as needed KIDNEYS & ELECTROLYTES: Strict monitoring of intake and output Daily weights Avoid nephrotoxic agents Monitor electrolytes and replace as needed Goal urine output of 30mL/hr or 0.5mL/kg/hr Urine output: [ ] Fluid Balance: [ ] ENDOCRINE: Maintain blood glucose between 100-180 at all times. Insulin sliding scale for blood glucose management INFECTIOUS DISEASE: Trend temperature. Hinton-culture if febrile. Micro: [ ] Respiratory culture Antibiotics: [ ] Per primary team on meropenem and doxycycline HEMATOLOGY & COAGULATION: Monitor H&H. Keep Hgb > 7 Transfuse 1 unit of PRBC for Hgb < 7 Transfuse 1 pack of platelets of platelets < 20, 000 Watch for any signs and symptoms of bleeding SKIN: Pressure ulcer prevention per facility protocol Rehab: PT/OT Prophylaxis: GI: [Protonix ] DVT: [ Lovenox] Code Status: Full Resuscitation Electronically Signed by: KAY VARGAS ZLCSPY46/07/25 1617 Electronically Co-Signed by: BETHANY MAURICE MD12/23/24 1537 PROGRESS NOTE: INTERVAL HISTORY: Pt is awake alert and oriented x3. no complains at this time. continues on o2 at 3L via NC. Pt on NC at 3 L. she has been tolerating NIV at HS. This PM on abg PH 7.33/63/45/32. She reports she has o2 and per egg caser it has been evaluated by [employer]. Per pt she does not have an NIV at home or bipap. Patient has been experiencing increasing shortness of breath and weakness due to chronic respiratory failure secondary to COPD and is at high risk for exacerbation. Ordering noninvasive ventilation to prevent life-threatening circumstances and CO2 retention. Home CPAP and BiPAP have been ruled out as patient will need volume ventilation with battery backup and out of rales to prevent breath stacking. Because of the patient's COPD and chronic respiratory failure this cannot be treated with the settings on the BiPAP, S, ST, or VAPS. This only NIV that has capability to provide assured target volume, MPV, as well as alarms. 12/25 patient was seen and examined by bedside no family present. Patient remains on2 L nasal cannula. Patient is at her baseline does use home oxygen. Case management working on trilogy machine prior to discharge. At time of visit patient denies any chest pain report shortness of breadth has improved. Denies nausea vomiting or abdominal pain. Has remained hemodynamically stable. We will continue to monitor patient's respiratory status closely. Dispo per primary team PLAN Continue Solu-Medrol 40 mg b.i.d. continue antibiotics for pneumonia continue diuretics per cardiology Given exposure of smoking for many years, patient has a developed COPD with exacerbation. Patient to follow up as outpatient at pulmonary clinic in 1 weeks for PFTs, Singulair 10 mg daily Follow respiratory cultures Maintain O2 sats above 88% Home o2 at basline DME to eval DME devices Gi PPX with protonix due to steroids smoking cessation Continue nicotine patch PRN AVAPS T-max 25, P min 12, tidal volume 500, respiratory rate of 20, FiO2 of 40%, PRN and HS. CM for DC planning for possible trilogy machine eval. DANIEL KRAFT WIRE SPIRAL BINDER Dec 25, 2024 12:26 Electronically Signed by: DANIEL HARGROVE 1226 Electronically Co-Signed by: KIARA MATA MD12/27/24 1009 [facility] CARDIOLOGY CONSULTATION NOTE Date Patient Seen: Dec 20, 2024 Time of Visit: 16:01 Reason for Consultation: [ atypical chest pain] Assessment: [COPD exacerbation Moderate Pulmonary HTN atypical chest pain ] Plan: [ #atypical chest pain -Trop and BNP neg -ECG no ST-T changes -given worsening dyspnea, recommend high resolution CT chest when she is stable -2d echo ordered ] XAVIER ALBRIGHT MD Dec 20, 2024 16:10 Electronically Signed by: XAVIER ALBRIGHT MD12/20/24 1610 Electronically Co-Signed by: PROGRESS NOTE: Assessment: 1. Chronic obstructive pulmonary disease exacerbation. 2. Chronic diastolic heart failure. 3. Pulmonary hypertension. 4. Hypertension. 5. Nonobstructive coronary artery disease. Plan: 1. She was admitted for chronic obstructive pulmonary disease with acute diastolic heart failure exacerbation. She diuresed 4716 mL. She is currently on 3 L of supplemental oxygen. She has received her portable oxygen tank. 2. Continue amlodipine 2.5 mg once daily, atorvastatin 40 mg once daily and furosemide 20 mg twice daily. 3. Continue recommendations as per the pulmonology team. 4. She can be discharged home from a cardiology standpoint. Vitals/Labs OTF MERCEDES Dec 24, 2024 11:30 Electronically Signed by: OTF LOVE12/24/24 1131 Electronically Co-Signed by: Procedure(s): PATIENT: YEE OTTO MR#: [id number] : 1950 SEX: F AGE: 74 LOCATION: 2BH ORDER 2300 STATUS: ADM IN REPORT#: [id number] SERVICE 0600 REASON: resp failure ORDERING PHYSICIAN: KAY VARGAS PROCEDURE: CXR1VW - CHEST 1VW EXAM: CR Chest, single view. CLINICAL HISTORY: Respiratory failure. COMPARISON: Prior chest radiograph dated December 23, 2024 FINDINGS: Mild cardiomegaly with bilateral pulmonary congestion. Reticular opacities in the bilateral lung parenchyma, predominantly in the bilateral lower lobes. Mild bilateral pulmonary congestion. Linear fibrotic band and subsegmental atelectasis in the right parahilar region. No evidence of pneumothorax. No acute osseous abnormality. IMPRESSION: Mild cardiomegaly with bilateral pulmonary congestion. Reticular opacities in the bilateral lung parenchyma, predominantly in the bilateral lower lobes. Mild bilateral pulmonary congestion. Linear fibrotic band and subsegmental atelectasis in the right parahilar region. Compared to the prior study, there is no significant interval change. /[place] DICTATED BY: RITO DOUGLAS MD DATE: 12/24/24958 ELECTRONICALLY SIGNED BY: RITO DOUGLAS MD DATE: 12/24/24958 PATIENT: YEE OTTO MR#: [id number] : 1950 SEX: F AGE: 74 LOCATION: 2[facility] ORDER 99 STATUS: ADM IN REPORT#: [id number] SERVICE 06 REASON: resp failure ORDERING PHYSICIAN: KAY VARGAS PROCEDURE: CXR1VW - CHEST 1VW CHEST 1VW REASON: resp failure COMPARISON: Prior chest radiograph from 12/22/2024 is available. FINDINGS: Single view of the chest was obtained. There is cardiomegaly with a ventricular contour. There is uncoiling atherosclerotic change of thoracic aorta. There is diffuse interstitial pulmonary edema. There is also midlung field atelectasis.. Mediastinum and bony thorax appear unremarkable. IMPRESSION: 1. Cardiomegaly with interstitial pulmonary edema 2. There are bilateral midlung field subsegmental atelectasis.. DICTATED BY: ROSA FUENTES MD DATE: 12/23/241129 ELECTRONICALLY SIGNED BY: ROSA FUENTES MD DATE: 12/23/241133 PATIENT: YEE OTTO MR#: [id number] : 1950 SEX: F AGE: 74 LOCATION: 2[facility] ORDER 2300 STATUS: ADM IN REPORT#: [id number] SERVICE 06 REASON: resp failure ORDERING PHYSICIAN: KAY VARGAS PROCEDURE: CXR1VW - CHEST 1VW EXAM: CR Chest, single view. CLINICAL HISTORY: Respiratory failure. COMPARISON: Prior chest radiograph dated December 21, 2024 FINDINGS: Moderate cardiomegaly with bilateral pulmonary congestion. Patchy ill-defined infiltrates in the lingula and left lower lobe. Mild left-sided pleural effusion. No evidence of pneumothorax. No acute osseous abnormality. IMPRESSION: Moderate cardiomegaly with bilateral pulmonary congestion. Patchy ill-defined infiltrates in the lingula and left lower lobe. Mild left-sided pleural effusion. No evidence of pneumothorax. Compared to the prior study, there is no significant interval change. /[place] DICTATED BY: MARA GARZA Jr., MD DATE: 12/22/24802 ELECTRONICALLY SIGNED BY: MARA GARZA Jr., MD DATE: 12/22/24802 PATIENT: YEE OTTO MR#: [id number] : 1950 SEX: F AGE: 74 LOCATION: 2[facility] ORDER 1529 STATUS: ADM IN REPORT#: [id number] SERVICE 08 REASON: respiratory failure, r/o PE, hx of COPD, possible fibrosis, suspected PNA ORDERING PHYSICIAN: MALDONADO FLEMING MD PROCEDURE: CHES PE - CT CHEST PE PROTOCOL WWO CONT EXAM: CTA Chest with and without Intravenous Contrast for PE evaluation CLINICAL HISTORY: respiratory failure, r/o PE, hx of COPD, possible fibrosis, suspected PNA TECHNIQUE: Axial CTA images of the chest with and without intravenous contrast using a pulmonary embolism protocol. Multiplanar reconstructed images were created and reviewed. CONTRAST: None. was administered without incident. COMPARISON: None provided. FINDINGS: PULMONARY ARTERIES: The main pulmonary artery appears mildly dilated, measuring 3.1 cm. No evidence of central or segmental pulmonary embolism is seen. AORTA: There is no evidence for aneurysm or dissection of the thoracic aorta. LUNGS: Trace bilateral pleural effusions with fissural extension. Patchy area of consolidation in the lingula of the left upper lobe. Pleuroparenchymal fibrotic bands in both lungs. Mild centriacinar emphysema in the bilateral upper lobes. PLEURAL SPACES: No evidence of pneumothorax. HEART: Mild cardiomegaly. No significant pericardial effusion. Atherosclerosis of the coronary arteries, thoracic aorta, and proximal branch thoracic vessels. LYMPH NODES: No lymphadenopathy is evident. BONES: Degenerative changes in the visualized spine. No focal osseous abnormality or acute fracture. UPPER ABDOMEN: 3.8 x 3.0 cm cyst in the left kidney. Small sliding hiatus hernia. IMPRESSION: 1. No evidence of pulmonary embolism. 2. Left upper lobe lingular consolidation presumably from an infectious etiology. 3. Mild trace bilateral pleural effusions. 4. Mild cardiomegaly. Atherosclerosis of the coronary arteries, thoracic aorta, and proximal branch thoracic vessels. 5. The main pulmonary artery appears mildly dilated, measuring 3.1 cm. Recommend echocardiography to evaluate for possible pulmonary [place] hypertension. 6. Pleuroparenchymal fibrotic bands in both lungs. /[place] DICTATED BY: MARA GARZA Jr., MD DATE: 12/21/241432 ELECTRONICALLY SIGNED BY: MARA GARZA Jr., MD DATE: 12/21/241432 PATIENT: YEE OTTO MR#: [id number] : 1950 SEX: F AGE: 74 LOCATION: [facility] ORDER 99 STATUS: ADM IN REPORT#: [id number] SERVICE 06 REASON: resp failure ORDERING PHYSICIAN: KAY VARGAS PROCEDURE: CXR1VW - CHEST 1VW Comparison: Yesterday Findings: There are infiltrates noted in the bilateral perihilar areas similar to prior examination. The heart is enlarged. There are no acute fractures or pneumothorax. No significant effusion Impression: Bilateral perihilar infiltrates are stable /[place] DICTATED BY: RITO DOUGLAS MD DATE: 12/21/241515 ELECTRONICALLY SIGNED BY: RITO DOUGLAS MD DATE: 12/21/241515 PATIENT: YEE OTTO MR#: [id number] : 1950 SEX: F AGE: 74 LOCATION: [facility] ORDER 155 STATUS: ADM IN REPORT#: [id number] SERVICE 55 REASON: ascites? ORDERING PHYSICIAN: KAY VARGAS PROCEDURE: ABD WALL - US ABD LIMITED/ABD WALL EXAMINATION: ULTRASOUND OF THE ABDOMEN (LIMITED). CLINICAL HISTORY: Pain. COMPARISON: None. TECHNIQUE: Real-time grayscale ultrasound images of the abdomen. FINDINGS: There is no free fluid in the peritoneal cavity in all the fur quadrants. IMPRESSION: No ascites. /[place] DICTATED BY: BOB CHIN MD DATE: 12/21/24814 ELECTRONICALLY SIGNED BY: BOB CHIN MD DATE: 12/21/24814 PATIENT: YEE OTTO MR#: [id number] : 1950 SEX: F AGE: 74 LOCATION: [facility] ORDER 1351 STATUS: ADM IN REPORT#: [id number] SERVICE 1349 REASON: r/o DVT of the lower extremities ORDERING PHYSICIAN: MALDONADO FLEMING MD PROCEDURE: VENOUS FAY - US VENOUS DOPPLER BILATERAL EXAM: US for Deep Venous Thrombosis, bilateral Lower Extremity. CLINICAL HISTORY: Leg Pain and Swelling TECHNIQUE: Real-time ultrasound scan of the veins of the bilateral lower extremity with color Doppler flow, spectral waveform analysis and compression. COMPARISON: None provided. FINDINGS: DEEP VEINS: The common femoral, superficial femoral, and popliteal veins are echolucent and compressible. There is normal color Doppler flow throughout. The visualized calf veins appear patent. SOFT TISSUES: No popliteal fossa cyst or other abnormalities. IMPRESSION: 1. No evidence of deep venous thrombosis in bilateral lower extremities. /[place] DICTATED BY: RITO DOUGLAS MD DATE: 12/20/241610 ELECTRONICALLY SIGNED BY: RITO DOUGLAS MD DATE: 12/20/241610 PATIENT: YEE OTTO MR#: [id number] : 1950 SEX: F AGE: 74 LOCATION: [facility] ORDER 1351 STATUS: ADM IN HOSPITAL REPORT#: [id number] SERVICE 1349 REASON: assess for heart failure exacebration, pulmn HTN ORDERING PHYSICIAN: MALDONADO FLEMING MD PROCEDURE: ECHO CMP - ECHO 2-D COMPLETE APPROVED REPORT EXAM: Two-dimensional and M-mode echocardiogram with Doppler and color Doppler. INDICATION ICD: Assess for heart failure exacebration and pumonary hypertension 2D Dimensions RVDd 4.3 cm LVEF(%) 67.2 (>50%) LVED Vol(simp.) 133.2 mL IVSd 1.2 (0.7-1.1cm) FS(%) 38 % LVES Vol(simp.) 50.4 mL LVDd 5.5 (3.8-5.6cm) LA (2D) 4.0 (1.6-4.0cm) LVEF(%, simp.) 62 % PWd 0.9 (0.7-1.1cm) Ao Root(2D) 3.0 (2.0-3.7cm) LA ESV INDEX (BP) 47.61 mL/m2 LVDs 3.4 (2.5-4.0cm) LVOT diam 2.2 (1.8-2.4cm) IVC diam 3.4 cm Aortic Valve AoV Vmax 1.5 m/s Ao Peak GR 9.4 mmHg LVOT Vmax 1.5 m/s AoV VTI 0.4 m Ao Mean GR 4.8 mmHg LVOT VTI 0.34 m ELLY (VMAX) 3.78 cm2 ELLY (VTI) 3.3 cm2 Mitral Valve MV E Vmax 127.4 cm/s DECEL Time 169 ms MV A Vmax 104.1 cm/s P 1/2 T 80 ms E/A ratio 1.2 MVA (PHT) 2.8 cm2 TDI E/E' Medial 15.6 E/E' Lateral 14.4 Medial E' Peak V 8.18 cm/s Lateral E' Peak V 8.86 cm/s Pulmonary Valve PV Vmax 1.6 m/s PV VTI 0.36 m PV Mean GR 4.4 mmHg PV Peak GR 10.7 mmHg Tricuspid Valve RAP (EST) 15 mmHg RVSP 15.0 mmHg Left Ventricle The left ventricle is normal size. There is mild left ventricular wall thickness. LVEF is 60-65%. Stage II, diastolic dysfunction. Right Ventricle The right ventricle is mildly dilated. The right ventricular systolic function is normal. Atria The left atrium is moderately dilated. The right atrium is moderately dilated. Aortic Valve The aortic valve is normal in structure. No aortic regurgitation is present. There is no aortic valvular stenosis. Mitral Valve The mitral valve is normal in structure. There is trace of mitral valve regurgitation noted. There is no mitral valve stenosis. Tricuspid Valve The tricuspid valve is normal in structure. There is trace of tricuspid valve regurgitation noted. Pulmonic Valve The pulmonary valve is normal in structure. There is no pulmonic valvular regurgitation. Great Vessels The aortic root is normal in size. IVC is dilated and collapses <50% with inspiration. Pericardium There is no pericardial effusion. Other Information Quality : Adequate Conclusion The left ventricle is normal size. LVEF is 60-65%. Stage II, diastolic dysfunction. The right ventricle is mildly dilated. The right ventricular systolic function is normal. The left atrium is moderately dilated. The right atrium is moderately dilated. No valvular pathology. There is no pericardial effusion. DICTATED BY: XAVIER ALBRIGHT MD DATE: 12/20/24 1431 ELECTRONICALLY SIGNED BY: XAVIER ALBRIGHT MD DATE: 12/20/24 2188 PATIENT: YEE OTTO MR#: [id number] : 1950 SEX: F AGE: 74 LOCATION: [facility] ORDER 1136 STATUS: REG ER REPORT#: [id number] SERVICE 33 REASON: SOB ORDERING PHYSICIAN: CYN GARLAND MD PROCEDURE: CXR1VW - CHEST 1VW EXAM: CR Chest, 1 View. CLINICAL HISTORY: SOB COMPARISON: Radiograph dated June 17, 2023 FINDINGS: There is bilateral perihilar and bibasilar airspace disease that may reflect pulmonary edema. No pleural effusion or pneumothorax. Heart size is stable. Pulmonary vascular congestion. IMPRESSION: 1. Bilateral perihilar and bibasilar airspace disease, possibly representing pulmonary edema with pulmonary vascular congestion /[place] DICTATED BY: MARA GARZA Jr., MD DATE: 12/20/241401 ELECTRONICALLY SIGNED BY: MARA GARZA Jr., MD DATE: 12/20/241401 PATIENT: YEE OTTO ACCT: [id number] LOC: [facility] U: [id number] AGE/SX: 74/F ROOM: [facility] RE12/20/[address]: MALDONADO FLEMING MD : 1950 BED: 1 DIS: 12/25/24 STATUS: DIS IN TLOC: ------ ------ SPEC: [id number] DORIAN: 12/21/24 STATUS: COMP REQ: [id number] RECD: 12/21/[address]: KAY VARGASP SOURCE: BLOOD ENTR: 12/21/24-[address]: KASSIDY SEAMAN MD SPDESC: BETHANY MAURICE MD, ASHISH MD STONE, DANIELLE M MD ORDERED: BLOOD CULTURE COMMENTS: What is the Source? BLOOD Procedure Result Ronnie Date-Time BLOOD CULT Final 12/26/24-162 NO GROWTH AFTER 5 DAYS PATIENT: YEE OTTO ACCT: [id number] LOC: [facility] U: [id number] AGE/SX: 74/F ROOM: 210 RE12/20/[address]: MALDONADO FLEMING MD : 1950 BED: 1 DIS: STATUS: ADM IN TLOC: ---- -------- SPEC: [id number] DORIAN: 12/20/24113 STATUS: COMP REQ: [id number] RECD: 12/21/[address]: MALDONADO FLEMING MD SOURCE: URINE ENTR: 12/20/24-[address]: KASSIDY SEAMAN MD SPDESC: CLEAN CAT BETHANY MAURICE MD, ISABEL MD STONE, DANIELLE M MD ORDERED: BILL COMMENTS: ADD ON ADD ON Procedure Result Ronnie Date-Time LEGIONELLA PNEUMO AG URINE Final 12/21/24-1047 MRL RESULT: NEGATIVE REFERENCE RANGE = NEGATIVE RESULT: L. PNEUMOPHILIA SEROGROUP 1 ANTIGEN NOT DETECTED. Test(s) performed by: [facility] [address] [place] [address] Assessment/Plan: ASSESSMENT: Acute on severe chronic COPD exacerbation, POA Suspected hx of pulmonary fibrosis, POA Acute on chronic hypoxemic respiratory failure, severe, POA Acute on chronic hypercapnic respiratory failure, POA Atypical chest pain, POA Suspected developing multifocal community-acquired pneumonia, POA History of COPD, POA History of pulmonary hypertension, POA History of chronic hypoxemic respiratory failure on supplemental O2 therapy POA Hypertension, POA Hyperlipidemia, POA Morbid obesity, POA History of penicillin allergy, POA Discharge Instructions: Take antibiotic levaquin as directed, baseline QTc 398ms [Monitor for QT prolongation, report palpiations, syncope, new dizziness, regular ekg and electrolyte checkups recommended, especially with concurrent Furosemide and inhaled beta agonists, Trazadone] Continue steriods as prescribed Advised to avoid alcohol and smoking Monitor for symptoms like shortness of breath, chest pain, confusion, fever, inability to oxygen, new or worsening edema Monitor for fluid overload and adjust diuretics as needed Follow up with PCP within 2,3 days Follow up with , Financial Reserve Clerk within 1 week Follow up with Spring Machine Operator within 1-2 weeks Continue home oxygen as directed Please coordinate with your PCP/Pulmonolgy regarding NIV nightly and as needed for dyspnea Target Sat 88-92% Home Medications: Active Scripts Atorvastatin Calcium (LIPITOR) 40 Mg Tablet, 1 TAB PO DAILY for 30 Days, #30 TAB 0 Refills Prov:VASQUEZ MAIER MD 12/25/24 Furosemide (Lasix 20Mg Tab) 20 Mg Tablet, 20 MG PO Q12H for 30 Days, #60 TAB 0 Refills Prov:VASQUEZ MAIER MD 12/25/24 Amlodipine Besylate (Norvasc 2.5MG Tab) 2.5 Mg Tablet, 2.5 MG PO DAILY for 30 Days, #30 TAB 0 Refills Prov:VASQUEZ MAIER MD 12/25/24 Levofloxacin (Levaquin 750Mg Tabs) 750 Mg Tablet, 1 TAB PO DAILY for 5 Days, #5 TAB 0 Refills Prov:EDER MCINTOSH MD 12/23/24 Methylprednisolone (Medrol) 4 Mg Tablet, 1 TAB PO AD for 6 Days, #21 TAB 0 Refills Prov:EDER MCINTOSH MD 12/23/24 Reported Medications Famotidine (Famotidine) 10 Mg Tablet, 1 TAB PO DAILYDINNER for 30 Days, #30 TAB 0 Refills 12/20/24 Umeclidinium Brm/Vilanterol Tr (Anoro Ellipta 62.5-25 Mcg INH) 62.5 Mcg-25 Mcg/Actuation Disk.w.dev, 1 PUFF IH DAILY for 30 Days, #1 EACH 0 Refills 12/20/24 Ipratropium/Albuterol Sulfate (Iprat-Albut 0.5-3(2.5) mg/3 ml) 0.5 Mg-3 Mg (2.5 Mg Base)/3 Ml Ampul.neb, 3 ML NEB Q6HPRN PRN for SHORTNESS OF BREATH 06/17/23 Levothyroxine Sodium (Levothyroxine Sodium) 175 Mcg Tablet, 175 MCG PO DAILY, TAB 24 Pramipexole Di-HCl (Pramipexole ER) 1.5 Mg Tab.er.24h, 1.5 MG PO HS, TAB 06/17/23 Montelukast Sodium (Montelukast Sodium) 10 Mg Tablet, 10 MG PO DAILY, TAB 24 Pantoprazole Sodium (Pantoprazole Sodium) 40 Mg Tablet.dr, 40 MG PO DAILY, TAB 4/3/24 Trazodone HCl (Trazodone HCl) 100 Mg Tablet, 200 MG PO HS, TAB 06/17/23 Budesonide/Glycopyr/Formoterol (Breztri Aerosphere Inhaler) 160 Mcg-9 Mcg-4.8 Mcg/Actuation Hfa.aer.ad, 2 PUFF IH BID 06/17/23 Discontinued Reported Medications Furosemide (Furosemide) 20 Mg Tablet, 20 MG PO DAILY, TAB 06/17/23 Metoprolol Succinate (Metoprolol Succinate) 25 Mg Tab.er.24h, 25 MG PO DAILY, TAB 06/17/23 Rosuvastatin Calcium (Rosuvastatin Calcium) 10 Mg Tablet, 10 MG PO DAILY, TAB 06/17/23 Zinc Gluconate (Zinc) 50 Mg Tablet, 50 MG PO DAILY, TAB 06/17/23 Folic Acid (Folic Acid) 0.8 Mg Tablet, 0.8 MG PO DAILY, TAB 06/17/23 New Medications: Atorvastatin Calcium (Lipitor) 40 Mg Tablet 1 TAB PO DAILY for 30 Days, #30 TAB 0 Refills Levofloxacin (Levaquin 750Mg Tabs) 750 Mg Tablet 1 TAB PO DAILY for 5 Days, #5 TAB 0 Refills Methylprednisolone (Medrol) 4 Mg Tablet 1 TAB PO AD for 6 Days, #21 TAB 0 Refills Amlodipine Besylate (Norvasc 2.5MG Tab) 2.5 Mg Tablet 2.5 MG PO DAILY for 30 Days, #30 TAB 0 Refills Furosemide (Lasix 20Mg Tab) 20 Mg Tablet 20 MG PO Q12H for 30 Days, #60 TAB 0 Refills Continued Medications: Budesonide/Glycopyr/Formoterol (Breztri Aerosphere Inhaler) 160 Mcg-9 Mcg-4.8 Mcg/Actuation Hfa.aer.ad 2 PUFF IH BID Famotidine (Famotidine) 10 Mg Tablet 1 TAB PO DAILYDINNER for 30 Days, #30 TAB 0 Refills Ipratropium/Albuterol Sulfate (Iprat-Albut 0.5-3(2.5) mg/3 ml) 0.5 Mg-3 Mg (2.5 Mg Base)/3 Ml Ampul.neb 3 ML NEB Q6HPRN PRN for SHORTNESS OF BREATH Levothyroxine Sodium (Levothyroxine Sodium) 175 Mcg Tablet 175 MCG PO DAILY, TAB Montelukast Sodium (Montelukast Sodium) 10 Mg Tablet 10 MG PO DAILY, TAB Pantoprazole Sodium (Pantoprazole Sodium) 40 Mg Tablet.dr 40 MG PO DAILY, TAB Pramipexole Di-HCl (Pramipexole ER) 1.5 Mg Tab.er.24h 1.5 MG PO HS, TAB Trazodone HCl (Trazodone HCl) 100 Mg Tablet 200 MG PO HS, TAB Umeclidinium Brm/Vilanterol Tr (Anoro Ellipta 62.5-25 Mcg INH) 62.5 Mcg-25 Mcg/Actuation Disk.w.dev 1 PUFF IH DAILY for 30 Days, #1 EACH 0 Refills Discontinued Medications: Furosemide (Furosemide) 20 Mg Tablet 20 MG PO DAILY, TAB Metoprolol Succinate (Metoprolol Succinate) 25 Mg Tab.er.24h 25 MG PO DAILY, TAB Rosuvastatin Calcium (Rosuvastatin Calcium) 10 Mg Tablet 10 MG PO DAILY, TAB Time spent arranging discharge: 31-60 minutes ATTESTATION BY PHYSICIAN I have seen and examined the patient. I reviewed the documentation, medical decision making, and treatment plan as noted by the resident physician above. I agree with the findings and plan of care. RHONDA AGARWAL MD, MUHAMMAD H MD Dec 25, 2024 14:12
--- NOTE | 2024-12-25 14:30 | NUR ---
PATIENT AXOX4 BEING DISCHARGED HOME. PATIENT EDUCATED ON NEW MEDICATION LIST, INCLUDING SIDE EFFECTS. EDUCATED TO BALLET SOLOIST NEW PRESCRIPTIONS FROM PHARMACY AND TAKE ALL MEDICATIONS PRESCRIBED BY MD. PATIENT EDUCATED TO FOLLOW UP WITH EDUCATION AND TRAINING MANAGER GINNY, PCP, AND DR. ALBRIGHT IN 1 WEEK, PATIENT TO CALL TOMORROW TO SCHEDULE FOLLOW UP APPS. IV REMOVED WITHOUT COMPLICATIONS. PATIENT BEING DISCHARGED CONNECTED TO HOME O2, NO SOB, NO DISTRESS. ALL QUESTIONS ANSWERED, PATIENT VERBALIZED COMPLETE UNDERSTANDING. PATIENT GATHERED ALL BELONGINGS AND TOOK WITH HER AT DISCHARGE.
== END 2024-12-25 14:40 | disposition home or self-care (01) | DRG 193 ==
LOC: EDH 11:21 → EDHIP 13:41 → 2BH 15:34 → 2AH 12-24 13:24
PROVIDERS: ADMIT Internal Medicine; ATTEND Internal Medicine
PROC: 5A09357 Assistance with Respiratory Ventilation, Less than 24 Consecutive Hours, Continuous Positive Airway Pressure (ICD-10-PCS; principal; 2024-12-20)
PROC: 5A09357 Assistance with Respiratory Ventilation, Less than 24 Consecutive Hours, Continuous Positive Airway Pressure (ICD-10-PCS; 2024-12-21)
PROC: 5A09357 Assistance with Respiratory Ventilation, Less than 24 Consecutive Hours, Continuous Positive Airway Pressure (ICD-10-PCS; 2024-12-22)
PROC: 5A09357 Assistance with Respiratory Ventilation, Less than 24 Consecutive Hours, Continuous Positive Airway Pressure (ICD-10-PCS; 2024-12-23)
PROC: 5A09357 Assistance with Respiratory Ventilation, Less than 24 Consecutive Hours, Continuous Positive Airway Pressure (ICD-10-PCS; 2024-12-24)
PROC: 5A09357 Assistance with Respiratory Ventilation, Less than 24 Consecutive Hours, Continuous Positive Airway Pressure (ICD-10-PCS; 2024-12-25)
DX: J18.9 Pneumonia, unspecified organism (principal); I50.33 Acute on chronic diastolic (congestive) heart failure; J96.21 Acute and chronic respiratory failure with hypoxia; J96.22 Acute and chronic respiratory failure with hypercapnia; J44.1 Chronic obstructive pulmonary disease with (acute) exacerbation; J98.11 Atelectasis; J44.0 Chronic obstructive pulmonary disease with (acute) lower respiratory infection; I11.0 Hypertensive heart disease with heart failure; J84.10 Pulmonary fibrosis, unspecified; E66.01 Morbid (severe) obesity due to excess calories; E03.9 Hypothyroidism, unspecified; E78.00 Pure hypercholesterolemia, unspecified; E88.09 Other disorders of plasma-protein metabolism, not elsewhere classified; F17.210 Nicotine dependence, cigarettes, uncomplicated; I25.10 Atherosclerotic heart disease of native coronary artery without angina pectoris; K21.9 Gastro-esophageal reflux disease without esophagitis; I27.23 Pulmonary hypertension due to lung diseases and hypoxia; Z66 Do not resuscitate; Z88.0 Allergy status to penicillin; Z90.49 Acquired absence of other specified parts of digestive tract; Z99.81 Dependence on supplemental oxygen; Z68.38 Body mass index [BMI] 38.0-38.9, adult
CPT/HCPCS: 36415; 36600; 71045; 71270; 76705; 80048; 80053; 80076; 81001; 82435; 82550; 82803; 82947; 82948; 83605; 83735; 83880; 84100; 84132; 84145; 84295; 84484; 85018; 85025; 85378; 85610; 85651; 85730; 86140; 86738; 87040; 87449; 87635; 87804; 87880; 93005; 93306; 93970; 94640; 94660; 94664; 96365; 96375; 99291; G0378; J1120; J1650; J1938; J2185; J2470; J2919; J3411; J3490; J7030; Q9967